=== PATIENT | female | born 1960 | race Caucasian/White ===

== ENCOUNTER 2016-12-22 09:36 | Outpatient (CLI) | payer MEDICARE ==
[~2016-12-22] VITALS: Ht 162.6 cm; Wt 107.5 kg
[2016-12-22] VITALS (15 sets, daily range): BP systolic 91–128; BP diastolic 55–73
[~2016-12-22 09:36] MED LIST: ALLO100T PO; DOLOPHINE PO; FLUO40CA9 PO; FURO20TA3 PO; HYDR-971 PO; LEVO50TA5 PO; METF500T4 PO; METH10OR PO; METH5SOL PO; METH5TAB PO; Methadone PO; NAPR500T8 PO; POTA10CA PO; SPIR25TA3 PO; TIOT18CA IH; VENTOLIN HFA18 GM INH
[2016-12-22 10:09] LABS: HEMATOCRIT 43.8 % (36.0-47.0); HEMOGLOBIN 14.3 g/dL (12.0-15.5); RED BLOOD COUNT 4.8 x10^6/uL (3.50-5.40); RED CELL DISTRIBUTION WIDTH 14.6 % (11.5-14.5); WHITE BLOOD COUNT 7.2 x10^3/uL (4.0-11.0)
[2016-12-22] MEDS ORDERED: CLON0.5T PO (10:18)
[2016-12-22] MEDS ORDERED: DICL100G7 TP (10:18)
[2016-12-22] MEDS ORDERED: COLC0.6T34 PO (10:18)
[2016-12-22] MEDS ORDERED: ONDA4TAB12 PO (10:18)
[2016-12-22] MEDS ORDERED: METH10TA2 PO (10:18)
[2016-12-22] MEDS ORDERED: POTA20TA4 PO (10:18)
[2016-12-22 10:19] LABS: INR 1.1 (0.8-1.1); PROTHROMBIN TIME PATIENT 13.3 SEC (11.7-14.0)
[2016-12-22 10:21] LABS: CALCIUM 8.4 mg/dL (8.5-10.1); CREATININE 0.9 mg/dL (0.6-1.0); GFR 64.8; POTASSIUM 4.1 mmol/L (3.5-5.1)
--- NOTE | 2016-12-22 11:34 | PDOC ---
MODERATE SEDATION ASSESSMENT RISKS/ALTERNATIVES Risks/Alternatives Risks and alternatives of this type of sedation and procedure discussed with: RISK/ALTERNATIVES: Patient H & P ON CHART H & P H & P on chart and reviewed for co-morbid conditions and appropriate labs. H&P ON CHART: Yes STATUS PREG STATUS ASSESSED: N/A MEDS/ALLERGIES REVIEWED Meds/Allergies Reviewed Medications and Allergies including time and route of recently administered narcotics and sedatives. MEDS/ALLERGIES REVIEWED: Yes ASA RATING ASA RATING: II AIRWAY ASSESSMENT Airway Assessment Airway patency, oral function limitations, presence of caps, crowns, dentures, partials, and ability to extend neck assessed. AIRWAY ASSESSMENT: Yes MALLAMPATI SCORE MALLAMPATI SCORE: II PRE-SEDATION ASSESSMENT PRE-SEDATION ASSESSMENT: Yes ELIZABETH WILLS MD Dec 22, 2016 11:34
[2016-12-22] MEDS ORDERED: LIDOCAINE 2% 20 ML VIAL. ONE (11:38)
[2016-12-22] MEDS ORDERED: IOHEXOL 300 MG/ML 100ML VIAL. ONE (11:38)
[2016-12-22] MEDS ORDERED: HEPARIN for IV BOLUS 10,000 UNIT/10 ML VIAL. ONE (11:53)
[2016-12-22] MEDS ORDERED: NITROGLYCERIN 200 MCG/2 ML SYRINGE FOR CATH/VASC LAB. ONE (11:53)
[2016-12-22] MEDS ORDERED: VERAPAMIL 5 MG/2 ML VIAL. ONE (11:53)
[2016-12-22] MEDS ORDERED: MIDAZOLAM HCL 2 MG/2 ML VIAL. ONE (11:53)
[2016-12-22] MEDS ORDERED: FENTANYL PF 100 MCG/2 ML VIAL. ONE (11:54)
[2016-12-22] MEDS ORDERED: IOHEXOL 300 MG/ML 100ML VIAL. IART ONE (12:15)
[2016-12-22] MEDS ORDERED: FENTANYL PF 100 MCG/2 ML VIAL. IV ONE (12:15)
[2016-12-22] MEDS ORDERED: NITROGLYCERIN 200 MCG/2 ML SYRINGE FOR CATH/VASC LAB. IART ONE (12:15)
[2016-12-22] MEDS ORDERED: HEPARIN for IV BOLUS 10,000 UNIT/10 ML VIAL. IART ONE (12:15)
[2016-12-22] MEDS ORDERED: MIDAZOLAM HCL 2 MG/2 ML VIAL. IV ONE (12:15)
[2016-12-22] MEDS ORDERED: VERAPAMIL 5 MG/2 ML VIAL. IART ONE (12:15)
[2016-12-22] MEDS ORDERED: LIDOCAINE 2% 20 ML VIAL. IJ ONE (12:15)
--- NOTE | 2016-12-22 15:14 | CARD ---
APPROVED REPORT Procedure(s) performed: Left heart catheterization, selective coronary angiography and left ventricul ography via the right transradial approach INDICATION The indication(s) include : Dyspnea on exertion and positive stress test. PROCEDURE NARRATIVE After explaining the risks, benefits and alternative options, informed consent was obtained from antonio ent. Patient was brought to the cardiac Germination Worker and right wrist was prepped and draped in the usual fashion after confirming a positive modified Silvio's test. Arterial access was obtained in the [facility] t radial artery and a 6 Cambodian sheath was inserted. 6 Cambodian Robles catheter was used to perform quentin ective angiography of the left and right coronary arteries. 6 Cambodian pigtail catheter was used to pe rform left ventriculography. Patient tolerated the procedure well. Hemostasis was achieved using TR band. There were no immediate complications. The following findings were noted. FINDINGS 1. Hemodynamics: Left ventricular end-diastolic pressure of 18 mmHg. No pullback gradient across th e aortic valve. 2. Left ventriculography: Normal left ventricle systolic function with ejection fraction estimated at 60%. No significant mitral regurgitation seen. 3. Coronary angiography: a. The left main coronary artery arose from the left sinus of Valsalva, gave rise to the left anteri or descending and left circumflex arteries and did not show any significant stenosis. b. The left anterior descending artery did not show any significant stenosis. c. The left circumflex artery did not show any significant stenosis. d. The right coronary artery was a large and dominant vessel arising from the right sinus of Valsalv a that did not show any significant stenosis. Conclusion 1. No significant coronary artery disease 2. Normal left ventricle systolic function with ejection fraction estimated at 60% Recommendations Cardiac Risk Reduction Program
== END 2016-12-22 15:05 | disposition home or self-care (01) ==
LOC: CCL 09:36
PROVIDERS: ATTEND Internal Medicine Cardiovascular Disease
DX: R94.39 Abnormal result of other cardiovascular function study (principal); J44.9 Chronic obstructive pulmonary disease, unspecified; E11.9 Type 2 diabetes mellitus without complications; E03.9 Hypothyroidism, unspecified; F41.9 Anxiety disorder, unspecified; Z90.49 Acquired absence of other specified parts of digestive tract; Z87.39 Personal history of other diseases of the musculoskeletal system and connective tissue; Z79.01 Long term (current) use of anticoagulants
CPT/HCPCS: 36415; 80048; 85027; 85610; 93458; C1769; C1892; J3490; Q9967

== ENCOUNTER 2017-03-27 15:57 | Inpatient (IN) | payer MEDICARE, MEDICAID ==
[~2017-03-27] VITALS: Ht 165.1 cm; Wt 106.2 kg
[~2017-03-27 15:57] MED LIST changes: +CLON0.5T PO; +COLC0.6T34 PO; +DICL100G18 TP; +METH10TA2 PO; +ONDA4TAB12 PO; -POTA10CA PO; +POTA20TA4 PO; +POTASSIUM CHLO10 MEQ PO
--- NOTE | 2017-03-27 16:23 | EKG ---
[facility] [address] [place] [address] Test Date: 2017-03-27 Test Time: 16:10:56 Pat Name: JULIA MCBRIDE Department: Room: Gender: F Can Washer: : 1960 Requested By: BERTRAND AARON Order Number: [id number] Reading MD: Karen Jones Measurements Intervals [employer] Rate: 82 P: 27 SC: 182 QRS: 53 QRSD: 88 T: 36 QT: 450 QTc: 529 Interpretive Statements SINUS RHYTHM LEFT ATRIAL ABNORMALITY QRS(T) CONTOUR ABNORMALITY CONSISTENT WITH ANTEROSEPTAL INFARCT AGE UNDETERMINED ABNORMAL ECG Electronically Signed On 03-28-2017 14:29:00 CDT by Karen Jones
--- NOTE | 2017-03-27 16:53 | RAD ---
Indication: Shortness of air and bilateral lower extremity swelling. Time of exam 1646 hours. Correlation is made with prior study from 10/29/2016. The heart size is stable. There may be minimal infiltrate or atelectasis in the right base. Otherwise the lungs are clear. No effusion is seen. There is no pneumothorax. Impression: Minimal right basilar parenchymal density consistent with minimal infiltrate or atelectasis.
--- NOTE | 2017-03-27 16:57 | PHYS DOC ---
Past Medical History Past Medical History: CHF, COPD, Diabetes-Type II, Hypothyroid Additional Past Medical Histor: CHRONIC PAIN Past Surgical History: Cholecystectomy, Tonsillectomy Alcohol Use: None Drug Use: None Adult General Chief Complaint Chief Complaint: LOWER EXTREMITY SWELLING HPI HPI Patient is a 56 year old female who presents with complaint of worsening lower extremity edema and shortness of breath. Patient states that she has been having worsening edema for the past month and has been on oral frusemide for treatment. The patient was referred to the emergency department by her primary doctor, Dr. Ponce, he stated that the patient's edema has been steadily worsening over the past week. The patient also states that she has had increase her home oxygen due to worsening dyspnea on exertion. Patient has history of COPD. The patient does not think that she has history of CHF but does admit that she is currently on frusemide therapy and does follow with Dr. Gutiérrez of cardiology. Patient also notes that she has had redness present in her lower extremities over the past month with her worsening edema. Patient denies any chest pain, nausea, or vomiting currently. Patient denies fever or productive cough. Review of Systems Review of Systems Constitutional: Denies fever or chills [] Eyes: Denies change in visual acuity, redness, or eye pain [] HENT: Denies nasal congestion or sore throat [] Respiratory: Shortness of breath [] Cardiovascular: Lower extremity edema, dyspnea on exertion, denies chest pain [] GI: Denies abdominal pain, nausea, vomiting, bloody stools or diarrhea [] : Denies dysuria or hematuria [] Musculoskeletal: Denies back pain or joint pain [] Integument: Denies rash or skin lesions [] Neurologic: Denies headache, focal weakness or sensory changes [] Current Medications Current Medications Allergies Allergies Allergies Coded Allergies Type Severity Reaction Last Updated Verified No Known Drug Allergies 10/08/14 No Physical Exam Physical Exam Constitutional: Alert, afebrile, appears in mild distress. [] HENT: Normocephalic, atraumatic, bilateral external ears normal, oropharynx moist, no oral exudates, nose normal. [] Eyes: PERRLA, EOMI, conjunctiva normal, no discharge. [] Neck: Normal range of motion, no tenderness, supple, no stridor. [] Cardiovascular: Regular rate and rhythm, no murmurs, gallops, or rubs present [] Lungs & Thorax: Mildly restricted air movement bilaterally, no expiratory wheezes, mild rales bilaterally [] Abdomen: Bowel sounds normal, soft, no tenderness, no masses, no pulsatile masses. [] Skin: Warm, dry, no erythema, no rash. [] Back: No tenderness, no CVA tenderness. [] Extremities: Lower extremities are erythematous, no cyanosis, no clubbing, ROM intact, 3+ pitting edema in the bilateral lower extremities. [] Neurologic: Alert and oriented X 3, normal motor function, normal sensory function, no focal deficits noted. [] Current Patient Data Vital Signs Vital Signs Date Time Temp Pulse Resp B/P (MAP) Pulse Ox O2 Delivery O2 Flow Rate FiO2 03/27/17 17:38 76 15 118/61 (80) 95 Nasal Cannula 2.0 03/27/17 16:15 99.2 99.2 Lab Values Laboratory Tests Test 03/27/17 17:00 03/27/17 17:15 White Blood Count 7.3 x10^3/uL (4.0-11.0) Red Blood Count 4.95 x10^6/uL (3.50-5.40) Hemoglobin 14.9 g/dL (12.0-15.5) Hematocrit 44.8 % (36.0-47.0) Mean Corpuscular Volume 91 fL (79-100) Mean Corpuscular Hemoglobin 30 pg (25-35) Mean Corpuscular Hemoglobin Concent 33 g/dL (31-37) Red Cell Distribution Width 14.6 % (11.5-14.5) H Platelet Count 146 x10^3/uL (140-400) Neutrophils (%) (Auto) 70 % (31-73) Lymphocytes (%) (Auto) 20 % (24-48) L Monocytes (%) (Auto) 8 % (0-9) Eosinophils (%) (Auto) 1 % (0-3) Basophils (%) (Auto) 1 % (0-3) Neutrophils # (Auto) 5.1 x10^3uL (1.8-7.7) Lymphocytes # (Auto) 1.5 x10^3/uL (1.0-4.8) Monocytes # (Auto) 0.6 x10^3/uL (0.0-1.1) Eosinophils # (Auto) 0.1 x10^3/uL (0.0-0.7) Basophils # (Auto) 0.1 x10^3/uL (0.0-0.2) Sodium Level 135 mmol/L (136-145) L Potassium Level 2.7 mmol/L (3.5-5.1) *L Chloride Level 94 mmol/L (98-107) L Carbon Dioxide Level 43 mmol/L (21-32) H Anion Gap (6-14) Blood Urea Nitrogen 13 mg/dL (7-20) Creatinine 1.0 mg/dL (0.6-1.0) Estimated GFR (Cockcroft-Gault) 57.4 BUN/Creatinine Ratio 13 (6-20) Glucose Level 141 mg/dL (70-99) H Calcium Level 9.4 mg/dL (8.5-10.1) Total Bilirubin 0.6 mg/dL (0.2-1.0) Aspartate Amino Transferase (AST) 39 U/L (15-37) H Alanine Aminotransferase (ALT) 28 U/L (14-59) Alkaline Phosphatase 143 U/L (46-116) H Creatine Kinase 60 U/L (26-192) Creatine Kinase MB (Mass) 1.3 ng/mL (0.0-3.6) Creatine Kinase MB Relative Index % (0-4) Troponin I Quantitative < 0.017 ng/mL (0.000-0.055) MB-Sjl-L-Type Natriuretic Peptide 459 pg/mL (0-124) H Total Protein 7.4 g/dL (6.4-8.2) Albumin 3.0 g/dL (3.4-5.0) L Albumin/Globulin Ratio 0.7 (1.0-1.7) L Urine Collection Type Unknown Urine Color Yellow Urine Clarity Clear Urine pH 7.5 Urine Specific [place] 1.010 Urine Protein Negative mg/dL (NEG-TRACE) Urine Glucose (UA) Negative mg/dL (NEG) Urine Ketones (Stick) Negative mg/dL (NEG) Urine Blood Negative (NEG) Urine Nitrite Negative (NEG) Urine Bilirubin Negative (NEG) Urine Urobilinogen Dipstick 0.2 mg/dL (0.2 mg/dL) Urine Leukocyte Esterase Negative (NEG) Urine RBC Occ /HPF (0-2) Urine WBC 0 /HPF (0-4) Urine Squamous Epithelial Cells Few /LPF Urine Bacteria Few /HPF (0-FEW) Laboratory Tests 03/27/17 17:00 Laboratory Tests 03/27/17 17:00 EKG EKG Interpreted by me: Heart rate 82, sinus rhythm, normal intervals, normal axis, no acute ST/T-wave abnormalities present [] Radiology/Procedures Radiology/Procedures [facility] [address] [place] [address] IMAGING REPORT Signed PATIENT: JULIA MCBRIDE ACCOUNT: [id number] : 1960 LOCATION: ER AGE: 56 SEX: F EXAM STATUS: REG ER ORD. PHYSICIAN: BERTRAND AARON MD REASON: shortness of breath PROCEDURE: PORTABLE CHEST 1V Indication: Shortness of air and bilateral lower extremity swelling. Time of exam 1646 hours. Correlation is made with prior study from 10/29/2016. The heart size is stable. There may be minimal infiltrate or atelectasis in the right base. Otherwise the lungs are clear. No effusion is seen. There is no pneumothorax. Impression: Minimal right basilar parenchymal density consistent with minimal infiltrate or atelectasis. DICTATED and SIGNED BY: OUMOU RODRIGUEZ MD DATE: 03/27/17 1650 CC: BERTRAND AARON MD; TERESA PONCE MD ~ Course & Med Decision Making Course & Med Decision Making Pertinent Labs and Imaging studies reviewed. (See chart for details) Patient's lab work shows significant hypokalemia likely due to use of for of some mild. The patient was supplemented with oral potassium in the emergency department. The patient's clinical exam and x-ray shows signs of decompensated heart failure. The patient will be admitted for further treatment. I spoke with Dr. Schwartz who accepted care patient in hospital. I also spoke with Dr. Zaragoza who is on-call for Dr. Gutiérrez. He recommended that the patient be started on low-dose Lasix tonight due to her hypokalemia and he will reevaluate patient in the morning after morning labs and see if she can tolerate higher doses at that time. Spoke with patient regarding plan of care and she is in agreement at time of transfer to a second floor. Dragon Disclaimer Dragon Disclaimer This electronic medical record was generated, in whole or in part, using a voice recognition dictation system. Departure Departure Impression: Primary Impression: Acute on chronic congestive heart failure Additional Impressions: Hypokalemia COPD (chronic obstructive pulmonary disease) Moderate protein malnutrition Disposition: ADMITTED INPATIENT Admitting Physician: Doris Schwartz Condition: GUARDED Referrals: TERESA PONCE MD (PCP) Problem Qualifiers Primary Impression: Acute on chronic congestive heart failure Congestive heart failure type: unspecified congestive heart failure type Qualified Codes: I50.9 - Heart failure, unspecified Additional Impressions: COPD (chronic obstructive pulmonary disease) COPD type: unspecified COPD Qualified Codes: J44.9 - Chronic obstructive pulmonary disease, unspecified BERTRAND AARON MD Mar 27, 2017 16:57
[2017-03-27 17:12] LABS: BASO # 0.1 x10^3/uL (0.0-0.2); BASO % 1 % (0-3); EOS % 1 % (0-3); HEMATOCRIT 44.8 % (36.0-47.0); HEMOGLOBIN 14.9 g/dL (12.0-15.5); LYMPH # 1.5 x10^3/uL (1.0-4.8); LYMPH % 20 % (24-48); MEAN CORPUSCULAR HEMOGLOBIN 30 pg (25-35); MEAN CORPUSCULAR HGB CONC 33 g/dL (31-37); MEAN CORPUSCULAR VOLUME 91 fL (79-100); MONO % 8 % (0-9); NEUT % 70 % (31-73); PLATELET COUNT 146 x10^3/uL (140-400); RED BLOOD COUNT 4.95 x10^6/uL (3.50-5.40); RED CELL DISTRIBUTION WIDTH 14.6 % (11.5-14.5); WHITE BLOOD COUNT 7.3 x10^3/uL (4.0-11.0)
[2017-03-27 17:28] LABS: ALBUMIN/GLOBULIN RATIO 0.7 (1.0-1.7); ALK PHOS 143 U/L (46-116); ALT (SGPT) 28 U/L (14-59); AST (SGOT) 39 U/L (15-37); BLOOD UREA NITROGEN 13 mg/dL (7-20); BUN/CREATININE RATIO 13 (6-20); CALCIUM 9.4 mg/dL (8.5-10.1); CARBON DIOXIDE 43 mmol/L (21-32); CHLORIDE 94 mmol/L (98-107); GFR 57.4; GLUCOSE 141 mg/dL (70-99); SODIUM 135 mmol/L (136-145); TOTAL BILIRUBIN 0.6 mg/dL (0.2-1.0); TOTAL PROTEIN 7.4 g/dL (6.4-8.2)
[2017-03-27 17:31] LABS: BILIRUBIN,URINE NEGATIVE (NEG); GLUCOSE,URINE NEGATIVE (NEG); NITRITE,URINE NEGATIVE (NEG); PH,URINE 7.5; PROTEIN,URINE NEGATIVE (NEG-TRACE); UROBILINOGEN,URINE 0.2 mg/dL (0.2 mg/dL)
[2017-03-27 17:34] LABS: POTASSIUM 2.7 mmol/L (3.5-5.1)
[2017-03-27 17:37] LABS: CKMB MASS 1.3 ng/mL (0.0-3.6); CREATINE KINASE 60 U/L (26-192)
[2017-03-27 17:50] LABS: BACTERIA,URINE FEW /HPF (0-FEW); RBC,URINE OCC /HPF (0-2); SQUAMOUS EPITHELIAL CELL,UR FEW /LPF; WBC,URINE 0 /HPF (0-4)
--- NOTE | 2017-03-27 17:52 | ACF ---
Admission Forms Criteria HEART FAILURE: COMMON COMPLICATIONS Clinical Indications for Inpatient Care (Place 'X' for any and all applicable criteria): Ongoing inpatient care may be indicated for heart failure with 1 or more of the following (1)(2)(3)(4)(5)(6)(7)(8): [ ]I. New-onset heart failure [ ]II. Acute cardiac ischemia causing or associated with failure [ ]III. Ongoing need for care for primary condition requiring frequent therapy adjustments because of changes in cardiac function (eg, drug dosage changes for drugs that are renally metabolized) [X ]IV. Complications of heart failure, including 1 or more of the following: [ ]a) Hemodynamic instability [ ]b) Pericardial effusion [ ]c) Symptomatic pleural effusion [ ]d) Hypoxemia [ ]e) Tachypnea [X ]f) Dyspnea [ ]g) Syncope [ ]h) Altered mental status [ ]i) Acute renal insufficiency that is severe (reduction of more than 50% in estimated glomerular filtration rate from baseline) or progressive reduction of more than 25% in estimated glomerular filtration rate from baseline, with creatinine continuing to rise) [ ]j) Debilitating anasarca (eg tissue breakdown with infection, inability to void due to edema) (E) [ ]k) Clinically significant metabolic abnormalities due to heart failure (eg, new-onset metabolic acidosis) Extended stay may be needed until ALL of the following are present (1)(3)(18)(41 )(55) [ ]a) Hemodynamic stability [ ]b) Stable and effective diuretic regimen established (or patient on stable dialysis regimen if in chronic renal failure) [ ]c) Volume status acceptable on oral medication [ ]d) Breathing comfortably at rest [ ]e) Saturation of arterial oxygen greater than 90% or at acceptable baseline [ ]f) Pulmonary edema absent or improved [ ]g) Peripheral or sacral edema absent or improved [ ]h) Renal function stable and manageable at a lower level of care [ ]i) Complications (eg, pleural effusion) resolved or manageable at a lower level of care [ ]g) Patient or caregiver has received written discharge instructions or educational material addressing activity level, diet, discharge medications, follow-up appointment, weight monitoring, and what to do if symptoms worsen.(25)(26) The original [facility] [employer] content created by [facility] [employer] has been revised. The portions of the content which have been revised are identified through the use of italic text, and [facility] has neither reviewed nor approved the modified material.All other unmodified content is copyright [facility]. Please see references footnoted in the original [facility] edition 2015 Admission Criteria Met?: Yes TRACI HEALY Mar 27, 2017 17:52
[2017-03-27] MEDS ORDERED: POTASSIUM CHLORIDE 20 MEQ TABLET.ER. PO ONE ×2 (18:00→19:00)
[2017-03-27] MEDS ORDERED: ONDANSETRON PF 4 MG/2 ML VIAL. IV PRN ×2 (18:30→19:15)
[2017-03-27] MEDS ORDERED: ACETAMINOPHEN 325 MG TABLET. PO PRN ×2 (18:30→19:15)
[2017-03-27] MEDS ORDERED: fentaNYL PF VIAL 100 MCG/2 ML VIAL IV PRN (18:30)
[2017-03-27] MEDS ORDERED: ALBUTEROL SULFATE 2.5 MG/3 ML NEBU. NEB PRN (19:15)
[2017-03-27] MEDS ORDERED: traMADol 50 MG TABLET PO PRN (19:15)
[2017-03-27] MEDS ORDERED: MORPHINE SULFATE 2 MG/ML DISP.SYRIN. IV PRN (19:15)
[2017-03-27] MEDS ORDERED: hydrALAZINE 20 MG/ML VIAL. IVP PRN (19:15)
[2017-03-27] MEDS ORDERED: DOCUSATE SODIUM 100 MG CAPSULE. PO PRN (19:15)
[2017-03-27] MEDS ORDERED: clonazePAM 0.5 MG TABLET PO PRN (19:15)
--- NOTE | 2017-03-27 19:16 | PDOC1 ---
History and Physical Date of Admission Date of Admission 03/27/17 Identification/Chief Complaint Chief Complaint bl leg edema Problems: Source Source: Chart review, Patient History of Present Illness History of Present Illness HPI HPI Patient is a 56 year old female who presents with complaint of worsening lower extremity edema and shortness of breath. pt knows she has CHF, copd, on home o2 2/3 L, recently got Echo, no details known. Pt noticed bl leg swelling worsening for 1 month, and was taking both lasix another new diuretics with dr. Gutiérrez but without improvement. She also has chronic orthopnea, exertional sob which is getting worse recently, not require higher o2 tho. + cough with mucus. still smoking, 1ppd. Patient denies any chest pain, nausea, or vomiting currently, no fever, chills , diarrhea. Past Medical History Cardiovascular: No pertinent hx Pulmonary: COPD CENTRAL NERVOUS SYSTEM: Other GI: No pertinent hx Heme/Onc: No pertinent hx Hepatobiliary: No pertinent hx Psych: Addictions, Depression Rheumatologic: Gout Renal/: No pertinent hx Endocrine: Diabetes, Hypothyroidism Past Surgical History Past Surgical History: Appendectomy, Cholecystectomy, Tonsillectomy Family History Family History: Diabetes, Hypertension Social History Smoke: 1 pack per day ALCOHOL: none Drugs: None Current Problem List Problem List Problems Medical Problems: (1) Acute on chronic congestive heart failure Status: Acute Current Medications Current Medications Current Medications Medications (Trade) Dose Ordered Sig/Pietro Start Time Stop Time Status Last Admin Dose Admin Acetaminophen (Tylenol) 650 mg PRN Q4HRS PRN 03/27/17 18:30 03/28/17 18:29 Albuterol/ Ipratropium (Duoneb) 3 ml RTQID 03/27/17 20:00 03/28/17 19:59 Fentanyl Citrate (Fentanyl 2ml Vial) 50 mcg PRN Q2HR PRN 03/27/17 18:30 03/28/17 18:29 Furosemide (Lasix) 20 mg 1X ONCE 03/27/17 19:00 03/27/17 19:01 UNV Nicotine (Nicoderm Cq 21mg) 1 patch PRN DAILY PRN 03/27/17 18:30 Ondansetron HCl (Zofran) 4 mg PRN Q8HRS PRN 03/27/17 18:30 03/28/17 18:29 Potassium Chloride (Klor-Con) 40 meq 1X ONCE 03/27/17 19:00 03/27/17 19:01 DC 03/27/17 18:51 40 MEQ Allergies Allergies Allergies Coded Allergies Type Severity Reaction Last Updated Verified No Known Drug Allergies 10/08/14 No ROS Review of System CONSTITUTIONAL: No fever or chills EYES: No recent changes SKIN: No rash or itching CARDIOVASCULAR: No chest pain, syncope, palpitations, or edema RESPIRATORY: No SOB or cough GASTROINTESTINAL: No nausea, vomiting or abdominal pain NEUROLOGICAL: No headaches or weakness ENDOCRINE: No cold or heat intolerance GENITOURINARY: No urgency or frequency of urination MUSCULOSKELETAL: No back pain or joint pain LYMPHATICS: No enlarged lymph nodes PSYCHIATRIC: No anxiety or depression Physical Exam Physical Exam GEN.: No apparent distress. Alert and oriented. HEENT: Head is normocephalic, atraumatic NECK: Supple. LUNGS: bl decreased bs HEART: RRR, S1, S2 present. Peripheral pulses intact ABDOMEN: Soft, nontender. Positive bowel sounds. EXTREMITIES: Without any cyanosis. bl leg 2-3+ edema, warm, mild erythematous ,mild tenderness NEUROLOGIC: Normal speech, normal tone PSYCHIATRIC: Normal affect, normal mood. SKIN: No ulcerations Vitals Vitals Vital Signs Date Time Temp Pulse Resp B/P (MAP) Pulse Ox O2 Delivery O2 Flow Rate FiO2 03/27/17 18:38 74 22 108/64 (79) 91 Nasal Cannula 2.0 03/27/17 16:15 99.2 99.2 Labs Labs Laboratory Tests Test 03/27/17 17:00 03/27/17 17:15 White Blood Count 7.3 x10^3/uL (4.0-11.0) Red Blood Count 4.95 x10^6/uL (3.50-5.40) Hemoglobin 14.9 g/dL (12.0-15.5) Hematocrit 44.8 % (36.0-47.0) Mean Corpuscular Volume 91 fL (79-100) Mean Corpuscular Hemoglobin 30 pg (25-35) Mean Corpuscular Hemoglobin Concent 33 g/dL (31-37) Red Cell Distribution Width 14.6 % (11.5-14.5) Platelet Count 146 x10^3/uL (140-400) Neutrophils (%) (Auto) 70 % (31-73) Lymphocytes (%) (Auto) 20 % (24-48) Monocytes (%) (Auto) 8 % (0-9) Eosinophils (%) (Auto) 1 % (0-3) Basophils (%) (Auto) 1 % (0-3) Neutrophils # (Auto) 5.1 x10^3uL (1.8-7.7) Lymphocytes # (Auto) 1.5 x10^3/uL (1.0-4.8) Monocytes # (Auto) 0.6 x10^3/uL (0.0-1.1) Eosinophils # (Auto) 0.1 x10^3/uL (0.0-0.7) Basophils # (Auto) 0.1 x10^3/uL (0.0-0.2) Sodium Level 135 mmol/L (136-145) Potassium Level 2.7 mmol/L (3.5-5.1) Chloride Level 94 mmol/L (98-107) Carbon Dioxide Level 43 mmol/L (21-32) Anion Gap (6-14) Blood Urea Nitrogen 13 mg/dL (7-20) Creatinine 1.0 mg/dL (0.6-1.0) Estimated GFR (Cockcroft-Gault) 57.4 BUN/Creatinine Ratio 13 (6-20) Glucose Level 141 mg/dL (70-99) Calcium Level 9.4 mg/dL (8.5-10.1) Total Bilirubin 0.6 mg/dL (0.2-1.0) Aspartate Amino Transf (AST/SGOT) 39 U/L (15-37) Alanine Aminotransferase (ALT/SGPT) 28 U/L (14-59) Alkaline Phosphatase 143 U/L (46-116) Creatine Kinase 60 U/L (26-192) Creatine Kinase MB (Mass) 1.3 ng/mL (0.0-3.6) Creatine Kinase MB Relative Index % (0-4) Troponin I Quantitative < 0.017 ng/mL (0.000-0.055) YH-Uch-J-Type Natriuretic Peptide 459 pg/mL (0-124) Total Protein 7.4 g/dL (6.4-8.2) Albumin 3.0 g/dL (3.4-5.0) Albumin/Globulin Ratio 0.7 (1.0-1.7) Urine Collection Type Unknown Urine Color Yellow Urine Clarity Clear Urine pH 7.5 Urine Specific [place] 1.010 Urine Protein Negative mg/dL (NEG-TRACE) Urine Glucose (UA) Negative mg/dL (NEG) Urine Ketones (Stick) Negative mg/dL (NEG) Urine Blood Negative (NEG) Urine Nitrite Negative (NEG) Urine Bilirubin Negative (NEG) Urine Urobilinogen Dipstick 0.2 mg/dL (0.2 mg/dL) Urine Leukocyte Esterase Negative (NEG) Urine RBC Occ /HPF (0-2) Urine WBC 0 /HPF (0-4) Urine Squamous Epithelial Cells Few /LPF Urine Bacteria Few /HPF (0-FEW) Laboratory Tests Test 03/27/17 17:00 03/27/17 17:15 White Blood Count 7.3 x10^3/uL (4.0-11.0) Red Blood Count 4.95 x10^6/uL (3.50-5.40) Hemoglobin 14.9 g/dL (12.0-15.5) Hematocrit 44.8 % (36.0-47.0) Mean Corpuscular Volume 91 fL (79-100) Mean Corpuscular Hemoglobin 30 pg (25-35) Mean Corpuscular Hemoglobin Concent 33 g/dL (31-37) Red Cell Distribution Width 14.6 % (11.5-14.5) Platelet Count 146 x10^3/uL (140-400) Neutrophils (%) (Auto) 70 % (31-73) Lymphocytes (%) (Auto) 20 % (24-48) Monocytes (%) (Auto) 8 % (0-9) Eosinophils (%) (Auto) 1 % (0-3) Basophils (%) (Auto) 1 % (0-3) Neutrophils # (Auto) 5.1 x10^3uL (1.8-7.7) Lymphocytes # (Auto) 1.5 x10^3/uL (1.0-4.8) Monocytes # (Auto) 0.6 x10^3/uL (0.0-1.1) Eosinophils # (Auto) 0.1 x10^3/uL (0.0-0.7) Basophils # (Auto) 0.1 x10^3/uL (0.0-0.2) Sodium Level 135 mmol/L (136-145) Potassium Level 2.7 mmol/L (3.5-5.1) Chloride Level 94 mmol/L (98-107) Carbon Dioxide Level 43 mmol/L (21-32) Anion Gap (6-14) Blood Urea Nitrogen 13 mg/dL (7-20) Creatinine 1.0 mg/dL (0.6-1.0) Estimated GFR (Cockcroft-Gault) 57.4 BUN/Creatinine Ratio 13 (6-20) Glucose Level 141 mg/dL (70-99) Calcium Level 9.4 mg/dL (8.5-10.1) Total Bilirubin 0.6 mg/dL (0.2-1.0) Aspartate Amino Transf (AST/SGOT) 39 U/L (15-37) Alanine Aminotransferase (ALT/SGPT) 28 U/L (14-59) Alkaline Phosphatase 143 U/L (46-116) Creatine Kinase 60 U/L (26-192) Creatine Kinase MB (Mass) 1.3 ng/mL (0.0-3.6) Creatine Kinase MB Relative Index % (0-4) Troponin I Quantitative < 0.017 ng/mL (0.000-0.055) BT-Ewe-Y-Type Natriuretic Peptide 459 pg/mL (0-124) Total Protein 7.4 g/dL (6.4-8.2) Albumin 3.0 g/dL (3.4-5.0) Albumin/Globulin Ratio 0.7 (1.0-1.7) Urine Collection Type Unknown Urine Color Yellow Urine Clarity Clear Urine pH 7.5 Urine Specific [place] 1.010 Urine Protein Negative mg/dL (NEG-TRACE) Urine Glucose (UA) Negative mg/dL (NEG) Urine Ketones (Stick) Negative mg/dL (NEG) Urine Blood Negative (NEG) Urine Nitrite Negative (NEG) Urine Bilirubin Negative (NEG) Urine Urobilinogen Dipstick 0.2 mg/dL (0.2 mg/dL) Urine Leukocyte Esterase Negative (NEG) Urine RBC Occ /HPF (0-2) Urine WBC 0 /HPF (0-4) Urine Squamous Epithelial Cells Few /LPF Urine Bacteria Few /HPF (0-FEW) VTE Prophylaxis Ordered VTE Prophylaxis Devices: No VTE Pharmacological Prophylaxi: Yes Assessment/Plan Assessment/Plan 1. bl leg edema 2/2 acute CHF exacerbation 2. h/o CHF, no details known, diastolic likely 3. dm2 4. copd 5. tobaccoism 6. hypothyroidism 7. hyponatremia 8. mild malnutrition 9. chronic lymphedema 10. chronic methadone user 11. chronic hypoxic resp failure plan: card consult cont home meds another lasix 20mg ivx1 duoneb labs tmr lymphedema treatment dvt ppx JAMILA MARK MD Mar 27, 2017 19:16
[2017-03-27] MEDS ORDERED: FUROSEMIDE 20 MG/2 ML VIAL. IVP ONE (19:30)
[2017-03-27] MEDS ORDERED: NON FORMULARY ITEM (Albuterol Sulfate (Ventolin Hfa Inhaler) 2 PUFF) INH SCH (20:00)
[2017-03-27] MEDS ORDERED: IPRATRPIUM/ALBUTEROL 0.5/2.5MG 3 ML NEBU. NEB SCH (20:00)
[2017-03-27 20:10] VITALS: BP 130/72
[2017-03-27] MEDS: ENOXAPARIN 40 MG/0.4 ML SYRINGE. SQ SCH (20:47)
[2017-03-27] MEDS: IPRATRPIUM/ALBUTEROL 0.5/2.5MG 3 ML NEBU. NEB SCH (20:50)
[2017-03-27] MEDS ORDERED: METHADONE 10 MG TABLET. PO SCH (21:00)
[2017-03-27] MEDS: NICOTINE 21MG PATCH. TD PRN (21:10)
[2017-03-27 22:49] VITALS: BP 113/57
[2017-03-28 02:35] VITALS: BP 100/59
[2017-03-28 04:42] LABS: BASO % 0 % (0-3); EOS % 1 % (0-3); HEMATOCRIT 42.5 % (36.0-47.0); HEMOGLOBIN 14.4 g/dL (12.0-15.5); LYMPH # 2.2 x10^3/uL (1.0-4.8); LYMPH % 29 % (24-48); MEAN CORPUSCULAR HEMOGLOBIN 30 pg (25-35); MEAN CORPUSCULAR HGB CONC 34 g/dL (31-37); MEAN CORPUSCULAR VOLUME 90 fL (79-100); MONO % 10 % (0-9); NEUT % 60 % (31-73); PLATELET COUNT 147 x10^3/uL (140-400); RED BLOOD COUNT 4.74 x10^6/uL (3.50-5.40); RED CELL DISTRIBUTION WIDTH 14.3 % (11.5-14.5); WHITE BLOOD COUNT 7.8 x10^3/uL (4.0-11.0)
[2017-03-28 04:59] LABS: CALCIUM 8.8 mg/dL (8.5-10.1); CREATININE 0.8 mg/dL (0.6-1.0); GFR 74.2
[2017-03-28 05:10] LABS: POTASSIUM 2.8 mmol/L (3.5-5.1)
[2017-03-28] MEDS: LEVOTHYROXINE 125 MCG TABLET PO SCH (06:13)
[2017-03-28] MEDS: FUROSEMIDE 40 MG TABLET. PO SCH ×3 (06:13→17:29)
[2017-03-28] MEDS: POTASSIUM CHLORIDE 20 MEQ/15 ML ORAL LIQUID. PEG SCH ×2 (06:14→08:46)
[2017-03-28 07:39] VITALS: BP 100/49
[2017-03-28] MEDS: IPRATRPIUM/ALBUTEROL 0.5/2.5MG 3 ML NEBU. NEB SCH ×4 (08:26→19:56)
[2017-03-28] MEDS: METHADONE 10 MG/1 ML PO SCH (08:45)
[2017-03-28] MEDS: FLUoxetine HCL 20 MG CAPSULE PO SCH (08:46)
[2017-03-28] MEDS: ALLOPURINOL 100 MG TABLET. PO SCH (08:46)
[2017-03-28] MEDS: ENOXAPARIN 40 MG/0.4 ML SYRINGE. SQ SCH ×2 (08:47→21:03)
[2017-03-28] MEDS ORDERED: NON FORMULARY ITEM (Tiotropium Bromide (Spiriva) 1 CAP) IH SCH (09:00)
--- NOTE | 2017-03-28 09:05 | PDOC2 ---
CARDIAC CONSULT DATE OF CONSULT Date of Consult DATE: 03/28/17 TIME: 08:55 REASON FOR CONSULT Reason for Consult: CHF HISTORY OF PRESENT ILLNESS HISTORY OF PRESENT ILLNESS Patient is a 56 year old female who presented with complaint of worsening lower extremity edema and shortness of breath. She states that she has been having increasing edema for the past month and has been on oral 120mg per day lasix for treatment. She also reports an additional diuretic but is not sure of the name. She does acknowledge increased use of salt in her diet. She also report increased need for her home oxygen due to worsening dyspnea on exertion. She says she is unable to go outside in the heat due to increased dyspnea and that inhalers do help temporarily. Patient also notes that she has had redness present in her lower extremities over the past month with her worsening edema. Patient denies any chest pain, nausea, or vomiting currently. Patient denies fever or productive cough. She denies palpitations or lightheadedness. She reports that she had not been taking her potassium supplement as ordered. PAST MEDICAL HISTORY Past Medical History Cardiovascular: No pertinent hx Pulmonary: COPD CENTRAL NERVOUS SYSTEM: Other (no pertinent hx) GI: No pertinent hx Heme/Onc: No pertinent hx Hepatobiliary: No pertinent hx Musculoskeletal: low back pain (on methadone), Osteoarthritis Rheumatologic: Gout ENT: No pertinent hx Renal/: No pertinent hx Endocrine: Diabetes, Hypothyroidism PAST SURGICAL HISTORY Past Surgical History Past Surgical History: Appendectomy, Cholecystectomy, Tonsillectomy FAMILY HISTORY Family History Family History: Diabetes, Hypertension SOCIAL HISTORY Social History Smoke: 1 pack per day ALCOHOL: none Drugs: None Lives: with Family CURRENT MEDICATIONS CURRENT MEDICATIONS Current Medications Medications (Trade) Dose Ordered Sig/Pietro Route PRN Reason Start Time Stop Time Status Last Admin Dose Admin Potassium Chloride (Klor-Con) 40 meq 1X ONCE PO 03/27/17 18:00 03/27/17 18:01 DC 03/27/17 17:49 Nicotine (Nicoderm Cq 21mg) 1 patch PRN DAILY PRN TD SMOKING CESSATION 03/27/17 18:30 03/27/17 21:10 Potassium Chloride (Klor-Con) 40 meq 1X ONCE PO 03/27/17 19:00 03/27/17 19:01 DC 03/27/17 18:51 Furosemide (Lasix) 20 mg 1X ONCE IVP 03/27/17 19:30 03/27/17 19:31 DC 03/27/17 19:37 Allopurinol (Zyloprim) 200 mg DAILY PO 03/28/17 09:00 03/28/17 08:46 Furosemide (Lasix) 40 mg [id number] PO 03/28/17 07:00 03/28/17 06:13 Levothyroxine Sodium (Synthroid) 125 mcg DAILY07 PO 03/28/17 07:00 03/28/17 06:13 Fluoxetine HCl (PROzac) 40 mg DAILY PO 03/28/17 09:00 03/28/17 08:46 Enoxaparin Sodium (Lovenox 40mg Syringe) 40 mg Q12H SQ 03/27/17 21:00 03/28/17 08:47 Albuterol/ Ipratropium (Duoneb) 3 ml RTQID NEB 03/27/17 20:00 03/28/17 08:26 Guaifenesin (Mucinex) 600 mg BID PO 03/27/17 21:00 03/28/17 08:47 Potassium Chloride (KCl Oral Soln) 40 meq Q4H PEG 03/28/17 06:00 03/28/17 10:01 03/28/17 08:46 Non-Formulary Medication 1 ea DAILY PO 03/28/17 09:00 03/28/17 08:45 ALLERGIES ALLERGIES: Coded Allergies: No Known Drug Allergies (Unverified , 10/08/14) ROS Review of System as per HPI or negative PHYSICAL EXAM General: Alert, Oriented X3, Cooperative, No acute distress HEENT: Atraumatic, EOMI, Mucous membr. moist/pink Lungs: Other (right basilar crackles otherwise clear) Heart: Regular rate, Normal S1, Normal S2, Other (no significant murmurs, clicks or rubs) Abdomen: Normal bowel sounds, Soft, No tenderness Extremities: No cyanosis, Normal pulses, Other (+2 edema, bilateral lower extremities. ) Skin: Other (right lower extremity erythema) Neuro: Normal speech, Strength at 5/5 X4 ext Psych/Mental Status: Mental status NL, Mood NL VITALS VITALS Vital Signs Date Time Temp Pulse Resp B/P (MAP) Pulse Ox O2 Delivery O2 Flow Rate FiO2 03/28/17 08:27 97 Nasal Cannula 2.0 03/28/17 07:39 98.4 84 18 100/49 (66) 98.4 LABS Lab: Laboratory Tests Test 03/27/17 17:00 03/27/17 17:15 03/28/17 04:30 White Blood Count 7.3 x10^3/uL (4.0-11.0) 7.8 x10^3/uL (4.0-11.0) Red Blood Count 4.95 x10^6/uL (3.50-5.40) 4.74 x10^6/uL (3.50-5.40) Hemoglobin 14.9 g/dL (12.0-15.5) 14.4 g/dL (12.0-15.5) Hematocrit 44.8 % (36.0-47.0) 42.5 % (36.0-47.0) Mean Corpuscular Volume 91 fL (79-100) 90 fL (79-100) Mean Corpuscular Hemoglobin 30 pg (25-35) 30 pg (25-35) Mean Corpuscular Hemoglobin Concent 33 g/dL (31-37) 34 g/dL (31-37) Red Cell Distribution Width 14.6 % (11.5-14.5) 14.3 % (11.5-14.5) Platelet Count 146 x10^3/uL (140-400) 147 x10^3/uL (140-400) Neutrophils (%) (Auto) 70 % (31-73) 60 % (31-73) Lymphocytes (%) (Auto) 20 % (24-48) 29 % (24-48) Monocytes (%) (Auto) 8 % (0-9) 10 % (0-9) Eosinophils (%) (Auto) 1 % (0-3) 1 % (0-3) Basophils (%) (Auto) 1 % (0-3) 0 % (0-3) Neutrophils # (Auto) 5.1 x10^3uL (1.8-7.7) 4.7 x10^3uL (1.8-7.7) Lymphocytes # (Auto) 1.5 x10^3/uL (1.0-4.8) 2.2 x10^3/uL (1.0-4.8) Monocytes # (Auto) 0.6 x10^3/uL (0.0-1.1) 0.8 x10^3/uL (0.0-1.1) Eosinophils # (Auto) 0.1 x10^3/uL (0.0-0.7) 0.1 x10^3/uL (0.0-0.7) Basophils # (Auto) 0.1 x10^3/uL (0.0-0.2) 0.0 x10^3/uL (0.0-0.2) Sodium Level 135 mmol/L (136-145) 140 mmol/L (136-145) Potassium Level 2.7 mmol/L (3.5-5.1) 2.8 mmol/L (3.5-5.1) Chloride Level 94 mmol/L (98-107) 96 mmol/L (98-107) Carbon Dioxide Level 43 mmol/L (21-32) 42 mmol/L (21-32) Anion Gap (6-14) 2 (6-14) Blood Urea Nitrogen 13 mg/dL (7-20) 14 mg/dL (7-20) Creatinine 1.0 mg/dL (0.6-1.0) 0.8 mg/dL (0.6-1.0) Estimated GFR (Cockcroft-Gault) 57.4 74.2 BUN/Creatinine Ratio 13 (6-20) Glucose Level 141 mg/dL (70-99) 74 mg/dL (70-99) Calcium Level 9.4 mg/dL (8.5-10.1) 8.8 mg/dL (8.5-10.1) Magnesium Level 2.2 mg/dL (1.8-2.4) Total Bilirubin 0.6 mg/dL (0.2-1.0) Aspartate Amino Transf (AST/SGOT) 39 U/L (15-37) Alanine Aminotransferase (ALT/SGPT) 28 U/L (14-59) Alkaline Phosphatase 143 U/L (46-116) Creatine Kinase 60 U/L (26-192) Creatine Kinase MB (Mass) 1.3 ng/mL (0.0-3.6) Creatine Kinase MB Relative Index % (0-4) Troponin I Quantitative < 0.017 ng/mL (0.000-0.055) BD-Loi-M-Type Natriuretic Peptide 459 pg/mL (0-124) Total Protein 7.4 g/dL (6.4-8.2) Albumin 3.0 g/dL (3.4-5.0) Albumin/Globulin Ratio 0.7 (1.0-1.7) Urine Collection Type Unknown Urine Color Yellow Urine Clarity Clear Urine pH 7.5 Urine Specific [place] 1.010 Urine Protein Negative mg/dL (NEG-TRACE) Urine Glucose (UA) Negative mg/dL (NEG) Urine Ketones (Stick) Negative mg/dL (NEG) Urine Blood Negative (NEG) Urine Nitrite Negative (NEG) Urine Bilirubin Negative (NEG) Urine Urobilinogen Dipstick 0.2 mg/dL (0.2 mg/dL) Urine Leukocyte Esterase Negative (NEG) Urine RBC Occ /HPF (0-2) Urine WBC 0 /HPF (0-4) Urine Squamous Epithelial Cells Few /LPF Urine Bacteria Few /HPF (0-FEW) IMAGES IMAGES CXR - Impression: Minimal right basilar parenchymal density consistent with minimal infiltrate or atelectasis. EKG EKG sinus rhythm, ASMI age undetermined, no acute abn. ECHOCARDIOGRAM ECHOCARDIOGRAM 10/29/16 <Conclusion> Left ventricle systolic function is normal. The Ejection Fraction is 55-60%. There is normal LV segmental wall motion. Mild mitral regurgitation. Mild tricuspid regurgitation. The PA pressure was estimated at 35 mmHg. There is no evidence of significant pericardial effusion. STRESS TEST STRESS TEST 12/10/16 Conclusion 1. No evidence of stress induced EKG changes. 2. There is a mild severity, distal anterior and mid to distal néstor-septal perfusion defect suggestive of small prior infarct with minimal reversibility. 3. Normal EF at > 70% 4. Low to moderate risk study. HEART CATH HEART CATH 12/22/16 FINDINGS 1. Hemodynamics: Left ventricular end-diastolic pressure of 18 mmHg. No pullback gradient across the aortic valve. 2. Left ventriculography: Normal left ventricle systolic function with ejection fraction estimated at 60%. No significant mitral regurgitation seen. 3. Coronary angiography: a. The left main coronary artery arose from the left sinus of Valsalva, gave rise to the left anterior descending and left circumflex arteries and did not show any significant stenosis. b. The left anterior descending artery did not show any significant stenosis. c. The left circumflex artery did not show any significant stenosis. d. The right coronary artery was a large and dominant vessel arising from the right sinus of Valsalva that did not show any significant stenosis. Conclusion 1. No significant coronary artery disease 2. Normal left ventricle systolic function with ejection fraction estimated at 60% ASSESSMENT/PLAN ASSESSMENT/PLAN 1. Mild BNP elevation - She does not appear to be in any overt heart failure. Normal LV function and Coronaries. CXR without vascular congestion 2. COPD with chronic hypoxic respiratory insufficiency, oxygen dependant - mgmt per PCP, encourage smoking cessation 3. Chronic lower extremity edema/lymphedema - per PCP. Venous reflux study negative. 4. hypokalemia - replace. Request medication list from pharmacy. Second diuretic likely metalazone. Verify and consider change to aldactone. Problems: GUILLAUME CUNNINGHAM [employer]IEF [employer] OPERATOR Mar 28, 2017 09:05
[2017-03-28] MEDS ORDERED: POTASSIUM CHLORIDE 20MEQ 50 ML IV SCH (09:15)
[2017-03-28] MEDS: POTASSIUM CHLORIDE 10MEQ 100 ML IV SCH ×4 (09:41→13:09)
[2017-03-28 11:07] VITALS: BP 82/46
[2017-03-28] MEDS ORDERED: TIOT4MIS3 (12:53)
--- NOTE | 2017-03-28 13:25 | PDOC ---
PROGRESS NOTES Chief Complaint Chief Complaint Acute hypoxic resipr failure ASSESSMENT AND PLAN: 1. COPD exacerbation: nebs, suppl O2 2. CHF: mild diastolic with pA pressure 35mm at echo in Oct 2016. appreciate cardiology input. 3. Lymphedema: chronic, worsened recently. Venous reflux studies negative. Intact LV systolic function. had been historically on lasix, but was d/c.ed when she developed MILAGRO in setting of severe diarrhea 4. Tobaccoism: advised to stop. nicotine patch 5. DM2: borderline with min elevated BG, but nornal HgbA1c in 11/14 (5.4). no need for monitoring 6. Hypothyroidism: mildly elevated TSH in Oct; on synthroid; rpt TSH 7. Hyponatremia: minimal. observe 8. Hypokalemia: severe at admit; improving. continue repletion 8. Mild protein malnutrition in face of morbid obesity: nutrition consult 9. Chronic methadone user with hx opioid abuse. set against weaning 10. Prophylaxis: lovenox History of Present Illness History of Present Illness much improved. no CP or cough Vitals Vitals Vital Signs Date Time Temp Pulse Resp B/P (MAP) Pulse Ox O2 Delivery O2 Flow Rate FiO2 03/28/17 12:09 97 Nasal Cannula 2.0 03/28/17 11:07 98.0 80 16 82/46 (58) 98.0 Physical Exam General: Alert, Oriented X3, Cooperative, No acute distress Heart: Regular rate, Normal S1, Normal S2, Other (no significant murmurs, clicks or rubs) Abdomen: Normal bowel sounds, Soft, No tenderness Extremities: No cyanosis, Normal pulses, Other (+2 edema, bilateral lower extremities. ) Skin: Other (right lower extremity erythema) Labs LABS Laboratory Tests Test 03/27/17 17:00 03/27/17 17:15 03/28/17 04:30 White Blood Count 7.3 x10^3/uL (4.0-11.0) 7.8 x10^3/uL (4.0-11.0) Red Blood Count 4.95 x10^6/uL (3.50-5.40) 4.74 x10^6/uL (3.50-5.40) Hemoglobin 14.9 g/dL (12.0-15.5) 14.4 g/dL (12.0-15.5) Hematocrit 44.8 % (36.0-47.0) 42.5 % (36.0-47.0) Mean Corpuscular Volume 91 fL (79-100) 90 fL (79-100) Mean Corpuscular Hemoglobin 30 pg (25-35) 30 pg (25-35) Mean Corpuscular Hemoglobin Concent 33 g/dL (31-37) 34 g/dL (31-37) Red Cell Distribution Width 14.6 % (11.5-14.5) 14.3 % (11.5-14.5) Platelet Count 146 x10^3/uL (140-400) 147 x10^3/uL (140-400) Neutrophils (%) (Auto) 70 % (31-73) 60 % (31-73) Lymphocytes (%) (Auto) 20 % (24-48) 29 % (24-48) Monocytes (%) (Auto) 8 % (0-9) 10 % (0-9) Eosinophils (%) (Auto) 1 % (0-3) 1 % (0-3) Basophils (%) (Auto) 1 % (0-3) 0 % (0-3) Neutrophils # (Auto) 5.1 x10^3uL (1.8-7.7) 4.7 x10^3uL (1.8-7.7) Lymphocytes # (Auto) 1.5 x10^3/uL (1.0-4.8) 2.2 x10^3/uL (1.0-4.8) Monocytes # (Auto) 0.6 x10^3/uL (0.0-1.1) 0.8 x10^3/uL (0.0-1.1) Eosinophils # (Auto) 0.1 x10^3/uL (0.0-0.7) 0.1 x10^3/uL (0.0-0.7) Basophils # (Auto) 0.1 x10^3/uL (0.0-0.2) 0.0 x10^3/uL (0.0-0.2) Sodium Level 135 mmol/L (136-145) 140 mmol/L (136-145) Potassium Level 2.7 mmol/L (3.5-5.1) 2.8 mmol/L (3.5-5.1) Chloride Level 94 mmol/L (98-107) 96 mmol/L (98-107) Carbon Dioxide Level 43 mmol/L (21-32) 42 mmol/L (21-32) Anion Gap (6-14) 2 (6-14) Blood Urea Nitrogen 13 mg/dL (7-20) 14 mg/dL (7-20) Creatinine 1.0 mg/dL (0.6-1.0) 0.8 mg/dL (0.6-1.0) Estimated GFR (Cockcroft-Gault) 57.4 74.2 BUN/Creatinine Ratio 13 (6-20) Glucose Level 141 mg/dL (70-99) 74 mg/dL (70-99) Calcium Level 9.4 mg/dL (8.5-10.1) 8.8 mg/dL (8.5-10.1) Magnesium Level 2.2 mg/dL (1.8-2.4) Total Bilirubin 0.6 mg/dL (0.2-1.0) Aspartate Amino Transf (AST/SGOT) 39 U/L (15-37) Alanine Aminotransferase (ALT/SGPT) 28 U/L (14-59) Alkaline Phosphatase 143 U/L (46-116) Creatine Kinase 60 U/L (26-192) Creatine Kinase MB (Mass) 1.3 ng/mL (0.0-3.6) Creatine Kinase MB Relative Index % (0-4) Troponin I Quantitative < 0.017 ng/mL (0.000-0.055) BJ-Iix-F-Type Natriuretic Peptide 459 pg/mL (0-124) Total Protein 7.4 g/dL (6.4-8.2) Albumin 3.0 g/dL (3.4-5.0) Albumin/Globulin Ratio 0.7 (1.0-1.7) Urine Collection Type Unknown Urine Color Yellow Urine Clarity Clear Urine pH 7.5 Urine Specific [place] 1.010 Urine Protein Negative mg/dL (NEG-TRACE) Urine Glucose (UA) Negative mg/dL (NEG) Urine Ketones (Stick) Negative mg/dL (NEG) Urine Blood Negative (NEG) Urine Nitrite Negative (NEG) Urine Bilirubin Negative (NEG) Urine Urobilinogen Dipstick 0.2 mg/dL (0.2 mg/dL) Urine Leukocyte Esterase Negative (NEG) Urine RBC Occ /HPF (0-2) Urine WBC 0 /HPF (0-4) Urine Squamous Epithelial Cells Few /LPF Urine Bacteria Few /HPF (0-FEW) SVITLANA FLAHERTY MD Mar 28, 2017 13:25
[2017-03-28 15:02] VITALS: BP 86/48
[2017-03-28] MEDS: POTASSIUM CHLORIDE 20 MEQ TABLET.ER. PO SCH (17:29)
[2017-03-28 19:14] VITALS: BP 111/53
[2017-03-28 22:41] VITALS: BP 103/54
[2017-03-29 03:41] VITALS: BP 107/56
[2017-03-29] MEDS: FUROSEMIDE 40 MG TABLET. PO SCH ×3 (06:20→17:56)
[2017-03-29] MEDS: LEVOTHYROXINE 125 MCG TABLET PO SCH (06:20)
[2017-03-29] MEDS: NICOTINE 21MG PATCH. TD PRN (06:21)
[2017-03-29 07:00] VITALS: BP_SYST 106; BP_SYST 111; BP_DIAS 30; BP_DIAS 65
[2017-03-29] MEDS: IPRATRPIUM/ALBUTEROL 0.5/2.5MG 3 ML NEBU. NEB SCH ×4 (07:39→19:39)
[2017-03-29] MEDS: METHADONE 10 MG/1 ML PO SCH (09:00)
[2017-03-29] MEDS: POTASSIUM CHLORIDE 20 MEQ TABLET.ER. PO SCH ×2 (09:13→17:56)
[2017-03-29] MEDS: ENOXAPARIN 40 MG/0.4 ML SYRINGE. SQ SCH ×2 (09:14→21:09)
[2017-03-29] MEDS: ALLOPURINOL 100 MG TABLET. PO SCH (09:14)
[2017-03-29] MEDS: FLUoxetine HCL 20 MG CAPSULE PO SCH (09:14)
[2017-03-29 09:28] LABS: CALCIUM 8.3 mg/dL (8.5-10.1); GFR 57.4; POTASSIUM 3.2 mmol/L (3.5-5.1)
[2017-03-29 11:00] VITALS: BP 102/54
--- NOTE | 2017-03-29 13:21 | PDOC ---
PROGRESS NOTES Subjective Subjective The patient is feeling better today. Objective Objective Vital Signs Date Time Temp Pulse Resp B/P (MAP) Pulse Ox O2 Delivery O2 Flow Rate FiO2 03/29/17 11:42 Nasal Cannula 2.0 03/29/17 11:00 97.4 81 18 102/54 (70) 92 97.4 Intake and Output 03/29/17 07:00 Intake Total 1240 ml Output Total 700 ml Balance 540 ml Intake Oral 840 ml Other 400 ml Output Urine Total 700 ml # Voids 4 Physical Exam Abdomen: Normal bowel sounds Heart: Regular rate General: mild distress Lungs: Clear to auscultation Assessment Assessment Problems Medical Problems: (1) Acute on chronic congestive heart failure Status: Acute (2) COPD (chronic obstructive pulmonary disease) Status: Acute (3) Hypokalemia Status: Acute (4) Moderate protein malnutrition Status: Acute ASSESSMENT/PLAN 1. Mild BNP elevation the patient looks and feels better today. Normal LV function and coronaries as above. Continue present medical treatment. 2. COPD with chronic hypoxic respiratory insufficiency, oxygen dependant - mgmt per PCP, encourage smoking cessation 3. Chronic lower extremity edema/lymphedema - per PCP. Venous reflux study negative. 4. hypokalemia - Improved today at 3.2. Will continue replacement. Comment Review of Relevant I have reviewed the following items trever (where applicable) has been applied. Labs Laboratory Tests Test 03/27/17 17:00 03/27/17 17:15 03/28/17 04:30 03/29/17 08:58 White Blood Count 7.3 x10^3/uL (4.0-11.0) 7.8 x10^3/uL (4.0-11.0) Red Blood Count 4.95 x10^6/uL (3.50-5.40) 4.74 x10^6/uL (3.50-5.40) Hemoglobin 14.9 g/dL (12.0-15.5) 14.4 g/dL (12.0-15.5) Hematocrit 44.8 % (36.0-47.0) 42.5 % (36.0-47.0) Mean Corpuscular Volume 91 fL (79-100) 90 fL (79-100) Mean Corpuscular Hemoglobin 30 pg (25-35) 30 pg (25-35) Mean Corpuscular Hemoglobin Concent 33 g/dL (31-37) 34 g/dL (31-37) Red Cell Distribution Width 14.6 % (11.5-14.5) 14.3 % (11.5-14.5) Platelet Count 146 x10^3/uL (140-400) 147 x10^3/uL (140-400) Neutrophils (%) (Auto) 70 % (31-73) 60 % (31-73) Lymphocytes (%) (Auto) 20 % (24-48) 29 % (24-48) Monocytes (%) (Auto) 8 % (0-9) 10 % (0-9) Eosinophils (%) (Auto) 1 % (0-3) 1 % (0-3) Basophils (%) (Auto) 1 % (0-3) 0 % (0-3) Neutrophils # (Auto) 5.1 x10^3uL (1.8-7.7) 4.7 x10^3uL (1.8-7.7) Lymphocytes # (Auto) 1.5 x10^3/uL (1.0-4.8) 2.2 x10^3/uL (1.0-4.8) Monocytes # (Auto) 0.6 x10^3/uL (0.0-1.1) 0.8 x10^3/uL (0.0-1.1) Eosinophils # (Auto) 0.1 x10^3/uL (0.0-0.7) 0.1 x10^3/uL (0.0-0.7) Basophils # (Auto) 0.1 x10^3/uL (0.0-0.2) 0.0 x10^3/uL (0.0-0.2) Sodium Level 135 mmol/L (136-145) 140 mmol/L (136-145) 143 mmol/L (136-145) Potassium Level 2.7 mmol/L (3.5-5.1) 2.8 mmol/L (3.5-5.1) 3.2 mmol/L (3.5-5.1) Chloride Level 94 mmol/L (98-107) 96 mmol/L (98-107) 98 mmol/L (98-107) Carbon Dioxide Level 43 mmol/L (21-32) 42 mmol/L (21-32) 43 mmol/L (21-32) Anion Gap (6-14) 2 (6-14) 2 (6-14) Blood Urea Nitrogen 13 mg/dL (7-20) 14 mg/dL (7-20) 13 mg/dL (7-20) Creatinine 1.0 mg/dL (0.6-1.0) 0.8 mg/dL (0.6-1.0) 1.0 mg/dL (0.6-1.0) Estimated GFR (Cockcroft-Gault) 57.4 74.2 57.4 BUN/Creatinine Ratio 13 (6-20) Glucose Level 141 mg/dL (70-99) 74 mg/dL (70-99) 123 mg/dL (70-99) Calcium Level 9.4 mg/dL (8.5-10.1) 8.8 mg/dL (8.5-10.1) 8.3 mg/dL (8.5-10.1) Magnesium Level 2.2 mg/dL (1.8-2.4) Total Bilirubin 0.6 mg/dL (0.2-1.0) Aspartate Amino Transf (AST/SGOT) 39 U/L (15-37) Alanine Aminotransferase (ALT/SGPT) 28 U/L (14-59) Alkaline Phosphatase 143 U/L (46-116) Creatine Kinase 60 U/L (26-192) Creatine Kinase MB (Mass) 1.3 ng/mL (0.0-3.6) Creatine Kinase MB Relative Index % (0-4) Troponin I Quantitative < 0.017 ng/mL (0.000-0.055) CK-Uph-U-Type Natriuretic Peptide 459 pg/mL (0-124) Total Protein 7.4 g/dL (6.4-8.2) Albumin 3.0 g/dL (3.4-5.0) Albumin/Globulin Ratio 0.7 (1.0-1.7) Urine Collection Type Unknown Urine Color Yellow Urine Clarity Clear Urine pH 7.5 Urine Specific [place] 1.010 Urine Protein Negative mg/dL (NEG-TRACE) Urine Glucose (UA) Negative mg/dL (NEG) Urine Ketones (Stick) Negative mg/dL (NEG) Urine Blood Negative (NEG) Urine Nitrite Negative (NEG) Urine Bilirubin Negative (NEG) Urine Urobilinogen Dipstick 0.2 mg/dL (0.2 mg/dL) Urine Leukocyte Esterase Negative (NEG) Urine RBC Occ /HPF (0-2) Urine WBC 0 /HPF (0-4) Urine Squamous Epithelial Cells Few /LPF Urine Bacteria Few /HPF (0-FEW) Thyroid Stimulating Hormone (TSH) 3.232 uIU/mL (0.358-3.74) Laboratory Tests Test 03/29/17 08:58 Sodium Level 143 mmol/L (136-145) Potassium Level 3.2 mmol/L (3.5-5.1) Chloride Level 98 mmol/L (98-107) Carbon Dioxide Level 43 mmol/L (21-32) Anion Gap 2 (6-14) Blood Urea Nitrogen 13 mg/dL (7-20) Creatinine 1.0 mg/dL (0.6-1.0) Estimated GFR (Cockcroft-Gault) 57.4 Glucose Level 123 mg/dL (70-99) Calcium Level 8.3 mg/dL (8.5-10.1) Thyroid Stimulating Hormone (TSH) 3.232 uIU/mL (0.358-3.74) Medications Current Medications Potassium Chloride (Klor-Con) 40 meq 1X ONCE PO Last administered on 17:49; Start 03/27/17 at 18:00; Stop 03/27/17 at 18:01; Status DC Nicotine (Nicoderm Cq 21mg) 1 patch PRN DAILY PRN TD SMOKING CESSATION Last administered on 03/29/17 06:21; Start 03/27/17 at 18:30 Ondansetron HCl (Zofran) 4 mg PRN Q8HRS PRN IV NAUSEA/VOMITING; Start 03/27/17 at 18:30; Stop 03/27/17 at 19:12; Status DC Fentanyl Citrate (Fentanyl 2ml Vial) 50 mcg PRN Q2HR PRN IV PAIN; Start at 18:30; Stop 03/28/17 at 18:29; Status DC Acetaminophen (Tylenol) 650 mg PRN Q4HRS PRN PO FEVER; Start 03/27/17 at 18:30 ; Stop 03/27/17 at 19:12; Status DC Albuterol/ Ipratropium (Duoneb) 3 ml RTQID NEB ; Start 03/27/17 at 20:00; Stop 03/27/17 at 20:00; Status DC Potassium Chloride (Klor-Con) 40 meq 1X ONCE PO Last administered on 18:51; Start 03/27/17 at 19:00; Stop 03/27/17 at 19:01; Status DC Furosemide (Lasix) 20 mg 1X ONCE IVP Last administered on 03/27/17 19:37; Start 03/27/17 at 19:30; Stop 03/27/17 at 19:31; Status DC Acetaminophen (Tylenol) 650 mg PRN Q6HRS PRN PO FEVER; Start 03/27/17 at 19:15 Ondansetron HCl (Zofran) 4 mg PRN Q6HRS PRN IV NAUSEA/VOMITING; Start 03/27/17 at 19:15 Morphine Sulfate 2 mg PRN Q2HR PRN IV PAIN; Start 03/27/17 at 19:15 Tramadol HCl (Ultram) 50 mg PRN Q6HRS PRN PO PAIN; Start 03/27/17 at 19:15 Hydralazine HCl (Apresoline) 10 mg PRN Q4HRS PRN IVP ELEVATED BP, SEE COMMENTS ; Start 03/27/17 at 19:15 Docusate Sodium (Colace) 100 mg PRN DAILY PRN PO CONSTIPATION; Start 03/27/17 at 19:15 Allopurinol (Zyloprim) 200 mg DAILY PO Last administered on 03/29/17 09:14; Start 03/28/17 at 09:00 Clonazepam (KlonoPIN) 0.5 mg PRN QHS PRN PO INSOMNIA; Start 03/27/17 at 19:15 Furosemide (Lasix) 40 mg [id number] PO Last administered on 03/29/17 06:20; Start 03/28/17 at 07:00 Levothyroxine Sodium (Synthroid) 125 mcg DAILY07 PO Last administered on 06:20; Start 03/28/17 at 07:00 Methadone HCl (Dolophine) 10 mg BID PO ; Start 03/27/17 at 21:00; Stop 03/28/17 at 08:08; Status DC Potassium Chloride (Klor-Con) 40 meq BIDWMEALS PO Last administered on 09:13; Start 03/28/17 at 17:00 Non-Formulary Medication 2 puff Q4HRS INH ; Start 03/27/17 at 20:00; Status UNV Fluoxetine HCl (PROzac) 40 mg DAILY PO Last administered on 03/29/17 09:14; Start 03/28/17 at 09:00 Non-Formulary Medication 1 cap DAILY IH ; Start 03/28/17 at 09:00; Status UNV Enoxaparin Sodium (Lovenox 40mg Syringe) 40 mg Q12H SQ Last administered on 03/29 09:14; Start 03/27/17 at 21:00 Albuterol/ Ipratropium (Duoneb) 3 ml RTQID NEB Last administered on 03/29/17 11 :40; Start 03/27/17 at 20:00 Albuterol Sulfate (Ventolin Neb Soln) 2.5 mg PRN Q2HR PRN NEB SHORTNESS OF BREATH; Start 03/27/17 at 19:15 Guaifenesin (Mucinex) 600 mg BID PO Last administered on 03/29/17 09:14; Start 03/27/17 at 21:00 Potassium Chloride (KCl Oral Soln) 40 meq Q4H PEG Last administered on 08:46; Start 03/28/17 at 06:00; Stop 03/28/17 at 10:01; Status DC Non-Formulary Medication 1 ea DAILY PO Last administered on 03/29/17 09:00; Start 03/28/17 at 09:00 Potassium Chloride 50 ml @ 50 mls/hr Q1H IV ; Start 03/28/17 at 09:15; Stop at 11:14; Status UNV Potassium Chloride 100 ml @ 100 mls/hr Q1H IV Last administered on 03/28/17 13 :09; Start 03/28/17 at 09:30; Stop 03/28/17 at 13:29; Status DC Active Scripts Active Reported Stiolto Respimat Inhal [place] (Tiotropium Br/Olodaterol HCl) 4 Gm Mist.inhal Klor-Con M20 (Potassium Chloride) 20 Meq Tab.er.prt 80 Meq PO DAILY Methadone Hcl 10 Mg Tablet 140 Mg PO DAILY Klonopin (Clonazepam) 0.5 Mg Tablet 0.5 Mg PO DAILY PRN Allopurinol 100 Mg Tablet 2 Tab PO DAILY Prozac (Fluoxetine Hcl) 40 Mg Capsule 1 Cap PO DAILY Ventolin Hfa Inhaler (Albuterol Sulfate) 18 Gm Hfa.aer.ad 2 Puff INH Q4HRS Furosemide 20 Mg Tablet 2 Tab PO TID Levothyroxine Sodium 50 Mcg Tablet 2.5 Tab PO DAILY Spiriva (Tiotropium [place]) 18 Mcg Cap.w.dev 1 Cap IH DAILY Vitals/I & O Vital Sign - Last 24 Hours 03/28/17 03/28/17 03/28/17 03/28/17 15:02 15:38 19:14 19:45 Temp 98.5 98.3 98.5 98.3 Pulse 76 79 Resp 16 18 B/P (MAP) 86/48 (61) 111/53 (72) Pulse Ox 92 95 93 O2 Delivery Room Air Nasal Cannula Nasal Cannula Nasal Cannula O2 Flow Rate 2.0 2.0 2.0 03/28/17 03/28/17 03/29/17 03/29/17 19:57 22:41 03:41 07:00 Temp 98.4 97.2 98.6 98.4 97.2 98.6 Pulse 80 86 83 Resp 16 16 18 B/P (MAP) 103/54 (70) 107/56 (73) 106/65 (79) 111/30 (57) Pulse Ox 95 94 90 92 O2 Delivery Nasal Cannula Nasal Cannula Nasal Cannula Nasal Cannula O2 Flow Rate 2.0 2.0 2.0 2.0 03/29/17 03/29/17 03/29/17 03/29/17 07:42 07:51 11:00 11:42 Temp 97.4 97.4 Pulse 81 Resp 18 B/P (MAP) 102/54 (70) Pulse Ox 92 92 O2 Delivery Nasal Cannula Nasal Cannula Nasal Cannula Nasal Cannula O2 Flow Rate 2.0 2.0 2.0 2.0 Intake and Output 03/28/17 03/28/17 03/29/17 15:00 23:00 07:00 Intake Total 240 ml 400 ml 600 ml Output Total 200 ml 500 ml Balance 40 ml -100 ml 600 ml MAMADOU KYLE MD Mar 29, 2017 13:21
[2017-03-29 15:00] VITALS: BP 102/42
--- NOTE | 2017-03-29 15:41 | PDOC ---
PROGRESS NOTES Chief Complaint Chief Complaint Acute hypoxic resipr failure ASSESSMENT AND PLAN: 1. COPD exacerbation: nebs, suppl O2 2. CHF: mild diastolic with pA pressure 35mm at echo in Oct 2016. appreciate cardiology input. 3. Lymphedema: chronic, worsened recently. Venous reflux studies negative. Intact LV systolic function. had been historically on lasix, but was d/c.ed when she developed MILAGRO in setting of severe diarrhea 4. Tobaccoism: advised to stop. nicotine patch 5. DM2: borderline with min elevated BG, but [id number] in 11/14 (5.4). no need for monitoring 6. Hypothyroidism: mildly elevated TSH in Oct; on synthroid; rpt TSH 7. Hyponatremia: minimal. observe 8. Hypokalemia: severe at admit; improving. continue repletion 8. Mild protein malnutrition in face of morbid obesity: nutrition consult 9. Chronic methadone user with hx opioid abuse. set against weaning 10. Prophylaxis: lovenox History of Present Illness History of Present Illness much improved. no CP or cough Vitals Vitals Vital Signs Date Time Temp Pulse Resp B/P (MAP) Pulse Ox O2 Delivery O2 Flow Rate FiO2 03/29/17 11:42 Nasal Cannula 2.0 03/29/17 11:00 97.4 81 18 102/54 (70) 92 97.4 Physical Exam General: Alert, Oriented X3, Cooperative, No acute distress Heart: Regular rate Lungs: Clear, Other (poor air movement) Abdomen: Normal bowel sounds Extremities: No cyanosis, No edema, Other (+2 edema, bilateral lower extremities. ) Skin: Other (right lower extremity erythema) Labs LABS Laboratory Tests Test 03/29/17 08:58 Sodium Level 143 mmol/L (136-145) Potassium Level 3.2 mmol/L (3.5-5.1) Chloride Level 98 mmol/L (98-107) Carbon Dioxide Level 43 mmol/L (21-32) Anion Gap 2 (6-14) Blood Urea Nitrogen 13 mg/dL (7-20) Creatinine 1.0 mg/dL (0.6-1.0) Estimated GFR (Cockcroft-Gault) 57.4 Glucose Level 123 mg/dL (70-99) Calcium Level 8.3 mg/dL (8.5-10.1) Thyroid Stimulating Hormone (TSH) 3.232 uIU/mL (0.358-3.74) Comment Review of Relevant I have reviewed the following items trever (where applicable) has been applied. Labs Laboratory Tests Test 03/27/17 17:00 03/27/17 17:15 03/28/17 04:30 03/29/17 08:58 White Blood Count 7.3 x10^3/uL (4.0-11.0) 7.8 x10^3/uL (4.0-11.0) Red Blood Count 4.95 x10^6/uL (3.50-5.40) 4.74 x10^6/uL (3.50-5.40) Hemoglobin 14.9 g/dL (12.0-15.5) 14.4 g/dL (12.0-15.5) Hematocrit 44.8 % (36.0-47.0) 42.5 % (36.0-47.0) Mean Corpuscular Volume 91 fL (79-100) 90 fL (79-100) Mean Corpuscular Hemoglobin 30 pg (25-35) 30 pg (25-35) Mean Corpuscular Hemoglobin Concent 33 g/dL (31-37) 34 g/dL (31-37) Red Cell Distribution Width 14.6 % (11.5-14.5) 14.3 % (11.5-14.5) Platelet Count 146 x10^3/uL (140-400) 147 x10^3/uL (140-400) Neutrophils (%) (Auto) 70 % (31-73) 60 % (31-73) Lymphocytes (%) (Auto) 20 % (24-48) 29 % (24-48) Monocytes (%) (Auto) 8 % (0-9) 10 % (0-9) Eosinophils (%) (Auto) 1 % (0-3) 1 % (0-3) Basophils (%) (Auto) 1 % (0-3) 0 % (0-3) Neutrophils # (Auto) 5.1 x10^3uL (1.8-7.7) 4.7 x10^3uL (1.8-7.7) Lymphocytes # (Auto) 1.5 x10^3/uL (1.0-4.8) 2.2 x10^3/uL (1.0-4.8) Monocytes # (Auto) 0.6 x10^3/uL (0.0-1.1) 0.8 x10^3/uL (0.0-1.1) Eosinophils # (Auto) 0.1 x10^3/uL (0.0-0.7) 0.1 x10^3/uL (0.0-0.7) Basophils # (Auto) 0.1 x10^3/uL (0.0-0.2) 0.0 x10^3/uL (0.0-0.2) Sodium Level 135 mmol/L (136-145) 140 mmol/L (136-145) 143 mmol/L (136-145) Potassium Level 2.7 mmol/L (3.5-5.1) 2.8 mmol/L (3.5-5.1) 3.2 mmol/L (3.5-5.1) Chloride Level 94 mmol/L (98-107) 96 mmol/L (98-107) 98 mmol/L (98-107) Carbon Dioxide Level 43 mmol/L (21-32) 42 mmol/L (21-32) 43 mmol/L (21-32) Anion Gap (6-14) 2 (6-14) 2 (6-14) Blood Urea Nitrogen 13 mg/dL (7-20) 14 mg/dL (7-20) 13 mg/dL (7-20) Creatinine 1.0 mg/dL (0.6-1.0) 0.8 mg/dL (0.6-1.0) 1.0 mg/dL (0.6-1.0) Estimated GFR (Cockcroft-Gault) 57.4 74.2 57.4 BUN/Creatinine Ratio 13 (6-20) Glucose Level 141 mg/dL (70-99) 74 mg/dL (70-99) 123 mg/dL (70-99) Calcium Level 9.4 mg/dL (8.5-10.1) 8.8 mg/dL (8.5-10.1) 8.3 mg/dL (8.5-10.1) Magnesium Level 2.2 mg/dL (1.8-2.4) Total Bilirubin 0.6 mg/dL (0.2-1.0) Aspartate Amino Transf (AST/SGOT) 39 U/L (15-37) Alanine Aminotransferase (ALT/SGPT) 28 U/L (14-59) Alkaline Phosphatase 143 U/L (46-116) Creatine Kinase 60 U/L (26-192) Creatine Kinase MB (Mass) 1.3 ng/mL (0.0-3.6) Creatine Kinase MB Relative Index % (0-4) Troponin I Quantitative < 0.017 ng/mL (0.000-0.055) AI-Ojr-Q-Type Natriuretic Peptide 459 pg/mL (0-124) Total Protein 7.4 g/dL (6.4-8.2) Albumin 3.0 g/dL (3.4-5.0) Albumin/Globulin Ratio 0.7 (1.0-1.7) Urine Collection Type Unknown Urine Color Yellow Urine Clarity Clear Urine pH 7.5 Urine Specific [place] 1.010 Urine Protein Negative mg/dL (NEG-TRACE) Urine Glucose (UA) Negative mg/dL (NEG) Urine Ketones (Stick) Negative mg/dL (NEG) Urine Blood Negative (NEG) Urine Nitrite Negative (NEG) Urine Bilirubin Negative (NEG) Urine Urobilinogen Dipstick 0.2 mg/dL (0.2 mg/dL) Urine Leukocyte Esterase Negative (NEG) Urine RBC Occ /HPF (0-2) Urine WBC 0 /HPF (0-4) Urine Squamous Epithelial Cells Few /LPF Urine Bacteria Few /HPF (0-FEW) Thyroid Stimulating Hormone (TSH) 3.232 uIU/mL (0.358-3.74) Laboratory Tests Test 03/29/17 08:58 Sodium Level 143 mmol/L (136-145) Potassium Level 3.2 mmol/L (3.5-5.1) Chloride Level 98 mmol/L (98-107) Carbon Dioxide Level 43 mmol/L (21-32) Anion Gap 2 (6-14) Blood Urea Nitrogen 13 mg/dL (7-20) Creatinine 1.0 mg/dL (0.6-1.0) Estimated GFR (Cockcroft-Gault) 57.4 Glucose Level 123 mg/dL (70-99) Calcium Level 8.3 mg/dL (8.5-10.1) Thyroid Stimulating Hormone (TSH) 3.232 uIU/mL (0.358-3.74) Medications Current Medications Potassium Chloride (Klor-Con) 40 meq 1X ONCE PO Last administered on 17:49; Start 03/27/17 at 18:00; Stop 03/27/17 at 18:01; Status DC Nicotine (Nicoderm Cq 21mg) 1 patch PRN DAILY PRN TD SMOKING CESSATION Last administered on 03/29/17 06:21; Start 03/27/17 at 18:30 Ondansetron HCl (Zofran) 4 mg PRN Q8HRS PRN IV NAUSEA/VOMITING; Start 03/27/17 at 18:30; Stop 03/27/17 at 19:12; Status DC Fentanyl Citrate (Fentanyl 2ml Vial) 50 mcg PRN Q2HR PRN IV PAIN; Start at 18:30; Stop 03/28/17 at 18:29; Status DC Acetaminophen (Tylenol) 650 mg PRN Q4HRS PRN PO FEVER; Start 03/27/17 at 18:30 ; Stop 03/27/17 at 19:12; Status DC Albuterol/ Ipratropium (Duoneb) 3 ml RTQID NEB ; Start 03/27/17 at 20:00; Stop 03/27/17 at 20:00; Status DC Potassium Chloride (Klor-Con) 40 meq 1X ONCE PO Last administered on 18:51; Start 03/27/17 at 19:00; Stop 03/27/17 at 19:01; Status DC Furosemide (Lasix) 20 mg 1X ONCE IVP Last administered on 03/27/17 19:37; Start 03/27/17 at 19:30; Stop 03/27/17 at 19:31; Status DC Acetaminophen (Tylenol) 650 mg PRN Q6HRS PRN PO FEVER; Start 03/27/17 at 19:15 Ondansetron HCl (Zofran) 4 mg PRN Q6HRS PRN IV NAUSEA/VOMITING; Start 03/27/17 at 19:15 Morphine Sulfate 2 mg PRN Q2HR PRN IV PAIN; Start 03/27/17 at 19:15 Tramadol HCl (Ultram) 50 mg PRN Q6HRS PRN PO PAIN; Start 03/27/17 at 19:15 Hydralazine HCl (Apresoline) 10 mg PRN Q4HRS PRN IVP ELEVATED BP, SEE COMMENTS ; Start 03/27/17 at 19:15 Docusate Sodium (Colace) 100 mg PRN DAILY PRN PO CONSTIPATION; Start 03/27/17 at 19:15 Allopurinol (Zyloprim) 200 mg DAILY PO Last administered on 03/29/17 09:14; Start 03/28/17 at 09:00 Clonazepam (KlonoPIN) 0.5 mg PRN QHS PRN PO INSOMNIA; Start 03/27/17 at 19:15 Furosemide (Lasix) 40 mg [id number] PO Last administered on 03/29/17 13:49; Start 03/28/17 at 07:00 Levothyroxine Sodium (Synthroid) 125 mcg DAILY07 PO Last administered on 06:20; Start 03/28/17 at 07:00 Methadone HCl (Dolophine) 10 mg BID PO ; Start 03/27/17 at 21:00; Stop 03/28/17 at 08:08; Status DC Potassium Chloride (Klor-Con) 40 meq BIDWMEALS PO Last administered on 09:13; Start 03/28/17 at 17:00 Non-Formulary Medication 2 puff Q4HRS INH ; Start 03/27/17 at 20:00; Status UNV Fluoxetine HCl (PROzac) 40 mg DAILY PO Last administered on 03/29/17 09:14; Start 03/28/17 at 09:00 Non-Formulary Medication 1 cap DAILY IH ; Start 03/28/17 at 09:00; Status UNV Enoxaparin Sodium (Lovenox 40mg Syringe) 40 mg Q12H SQ Last administered on 03/29 09:14; Start 03/27/17 at 21:00 Albuterol/ Ipratropium (Duoneb) 3 ml RTQID NEB Last administered on 03/29/17 11 :40; Start 03/27/17 at 20:00 Albuterol Sulfate (Ventolin Neb Soln) 2.5 mg PRN Q2HR PRN NEB SHORTNESS OF BREATH; Start 03/27/17 at 19:15 Guaifenesin (Mucinex) 600 mg BID PO Last administered on 03/29/17 09:14; Start 03/27/17 at 21:00 Potassium Chloride (KCl Oral Soln) 40 meq Q4H PEG Last administered on 08:46; Start 03/28/17 at 06:00; Stop 03/28/17 at 10:01; Status DC Non-Formulary Medication 1 ea DAILY PO Last administered on 03/29/17 09:00; Start 03/28/17 at 09:00; Stop 03/29/17 at 13:57; Status DC Potassium Chloride 50 ml @ 50 mls/hr Q1H IV ; Start 03/28/17 at 09:15; Stop at 11:14; Status UNV Potassium Chloride 100 ml @ 100 mls/hr Q1H IV Last administered on 03/28/17 13 :09; Start 03/28/17 at 09:30; Stop 03/28/17 at 13:29; Status DC Non-Formulary Medication 1 ea DAILY PO ; Start 03/30/17 at 07:00 Active Scripts Active Reported Stiolto Respimat Inhal [place] (Tiotropium Br/Olodaterol HCl) 4 Gm Mist.inhal Klor-Con M20 (Potassium Chloride) 20 Meq Tab.er.prt 80 Meq PO DAILY Methadone Hcl 10 Mg Tablet 140 Mg PO DAILY Klonopin (Clonazepam) 0.5 Mg Tablet 0.5 Mg PO DAILY PRN Allopurinol 100 Mg Tablet 2 Tab PO DAILY Prozac (Fluoxetine Hcl) 40 Mg Capsule 1 Cap PO DAILY Ventolin Hfa Inhaler (Albuterol Sulfate) 18 Gm Hfa.aer.ad 2 Puff INH Q4HRS Furosemide 20 Mg Tablet 2 Tab PO TID Levothyroxine Sodium 50 Mcg Tablet 2.5 Tab PO DAILY Spiriva (Tiotropium [place]) 18 Mcg Cap.w.dev 1 Cap IH DAILY Vitals/I & O Vital Sign - Last 24 Hours 03/28/17 03/28/17 03/28/17 03/28/17 15:38 19:14 19:45 19:57 Temp 98.3 98.3 Pulse 79 Resp 18 B/P (MAP) 111/53 (72) Pulse Ox 95 93 95 O2 Delivery Nasal Cannula Nasal Cannula Nasal Cannula Nasal Cannula O2 Flow Rate 2.0 2.0 2.0 2.0 03/28/17 03/29/17 03/29/17 03/29/17 22:41 03:41 07:00 07:42 Temp 98.4 97.2 98.6 98.4 97.2 98.6 Pulse 80 86 83 Resp 16 16 18 B/P (MAP) 103/54 (70) 107/56 (73) 106/65 (79) 111/30 (57) Pulse Ox 94 90 92 92 O2 Delivery Nasal Cannula Nasal Cannula Nasal Cannula Nasal Cannula O2 Flow Rate 2.0 2.0 2.0 2.0 03/29/17 03/29/17 03/29/17 07:51 11:00 11:42 Temp 97.4 97.4 Pulse 81 Resp 18 B/P (MAP) 102/54 (70) Pulse Ox 92 O2 Delivery Nasal Cannula Nasal Cannula Nasal Cannula O2 Flow Rate 2.0 2.0 2.0 Intake and Output 03/28/17 03/28/17 03/29/17 15:00 23:00 07:00 Intake Total 240 ml 400 ml 600 ml Output Total 200 ml 500 ml Balance 40 ml -100 ml 600 ml SVITLANA FLAHERTY MD Mar 29, 2017 15:41
[2017-03-29 19:07] VITALS: BP 116/58
[2017-03-29 23:05] VITALS: BP 114/59
[2017-03-30 02:53] VITALS: BP 113/62
[2017-03-30] MEDS: FUROSEMIDE 40 MG TABLET. PO SCH ×2 (06:36→13:10)
[2017-03-30] MEDS: LEVOTHYROXINE 125 MCG TABLET PO SCH (06:36)
[2017-03-30] MEDS: [UNRECOGNIZED DRUG - OTHER] PO SCH ×2 (06:43→09:00)
[2017-03-30] MEDS: METHADONE PO SCH ×2 (06:43→09:00)
[2017-03-30 07:00] VITALS: BP 122/62
[2017-03-30] MEDS: IPRATRPIUM/ALBUTEROL 0.5/2.5MG 3 ML NEBU. NEB SCH ×2 (08:14→11:55)
[2017-03-30 09:44] LABS: CALCIUM 8.2 mg/dL (8.5-10.1); GFR 57.4; MAGNESIUM 1.5 mg/dL (1.8-2.4)
[2017-03-30] MEDS: NICOTINE 21MG PATCH. TD PRN (10:11)
[2017-03-30] MEDS: FLUoxetine HCL 20 MG CAPSULE PO SCH (10:12)
[2017-03-30] MEDS: ENOXAPARIN 40 MG/0.4 ML SYRINGE. SQ SCH (10:12)
[2017-03-30] MEDS: POTASSIUM CHLORIDE 20 MEQ TABLET.ER. PO SCH (10:13)
[2017-03-30] MEDS: ALLOPURINOL 100 MG TABLET. PO SCH (10:14)
[2017-03-30 11:00] VITALS: BP 110/54
--- NOTE | 2017-03-30 12:12 | PDOC ---
CARDIO Progress Notes Date and Time Date of Service 03/30/17 Time of Evaluation 1200 Subjective Subjective: No Chest Pain, No shortness of breath, No Palpitations, Other ( wanting to go home ) Vitals Vitals Vital Signs Date Time Temp Pulse Resp B/P (MAP) Pulse Ox O2 Delivery O2 Flow Rate FiO2 03/30/17 11:57 Nasal Cannula 2.0 03/30/17 11:00 98.7 85 18 110/54 (72) 94 98.7 Weight Weight [ ] Input and Output Intake and Output Intake and Output 03/30/17 07:00 Intake Total 1120 ml Balance 1120 ml Intake Oral 1120 ml # Voids 5 Laboratory Labs Laboratory Tests Test 03/30/17 08:55 Sodium Level 142 mmol/L (136-145) Potassium Level 3.0 mmol/L (3.5-5.1) Chloride Level 95 mmol/L (98-107) Carbon Dioxide Level 41 mmol/L (21-32) Anion Gap 6 (6-14) Blood Urea Nitrogen 16 mg/dL (7-20) Creatinine 1.0 mg/dL (0.6-1.0) Estimated GFR (Cockcroft-Gault) 57.4 Glucose Level 149 mg/dL (70-99) Calcium Level 8.2 mg/dL (8.5-10.1) Magnesium Level 1.5 mg/dL (1.8-2.4) Physical Exam HEENT: Neck Supple W Full Motion Chest: Symmetric LUNGS: Clear to Auscultation Heart: S1S2, RRR, no murmurs Abdomen: Soft N/T Extremities: Other (1-2+ bilateral LE edema ) Neurology: alert, oriented, follow commands Assessment Assessment 1. Mild NT pro BNP elevation; CXR and clinical cute not consistent with acute HF. 2. Acute on chronic respiratory failure with AE COPD; oxygen dependant- improved. Continued management per PCP 3. Chronic lower extremity edema/lymphedema - per PCP. Venous reflux study negative. Recommendations Continue routine oral diuresis Supportive care May discharge from a CV standpoint and f/u in our office in 2-3 months. RIA ANDERSON APRN Mar 30, 2017 12:12
--- NOTE | 2017-03-30 14:48 | PDOC ---
PROGRESS NOTES Chief Complaint Chief Complaint 1. COPD exacerbation 2. CHF: mild diastolic with pA pressure 35mm at echo in Oct 2016 3. Lymphedema 4. Tobacco abuse 5. DM2 6. Hypothyroidism: mildly elevated TSH in Oct 7. Hyponatremia: minimal 8. Hypokalemia: 2.8 on admission 8. Mild protein malnutrition in face of morbid obesity 9. Chronic methadone user with hx opioid abuse History of Present Illness History of Present Illness patient is resting comfortably in bed on nasal cannula for oxygen, she denies any complaints Vitals Vitals Vital Signs Date Time Temp Pulse Resp B/P (MAP) Pulse Ox O2 Delivery O2 Flow Rate FiO2 03/30/17 11:57 Nasal Cannula 2.0 03/30/17 11:00 98.7 85 18 110/54 (72) 94 98.7 Physical Exam General: Alert, Oriented X3, Cooperative, No acute distress Heart: Regular rate, No murmurs Lungs: Clear, Other (poor air movement) Abdomen: Normal bowel sounds, Soft Extremities: No cyanosis, No edema, Other (+2 edema, b/l LE) Skin: No breakdown, Other (RLE erythema) Labs LABS Laboratory Tests Test 03/30/17 08:55 Sodium Level 142 mmol/L (136-145) Potassium Level 3.0 mmol/L (3.5-5.1) Chloride Level 95 mmol/L (98-107) Carbon Dioxide Level 41 mmol/L (21-32) Anion Gap 6 (6-14) Blood Urea Nitrogen 16 mg/dL (7-20) Creatinine 1.0 mg/dL (0.6-1.0) Estimated GFR (Cockcroft-Gault) 57.4 Glucose Level 149 mg/dL (70-99) Calcium Level 8.2 mg/dL (8.5-10.1) Magnesium Level 1.5 mg/dL (1.8-2.4) Review of Systems Review of Systems denies nausea, vomiting, headache, diarrhea denies SOB Assessment and Plan Assessmemt and Plan Assessment: 1. COPD exacerbation 2. CHF: mild diastolic with pA pressure 35mm at echo in Oct 2016 3. Lymphedema 4. Tobacco abuse 5. DM2 6. Hypothyroidism: mildly elevated TSH in Fe 7. Hyponatremia: minimal 8. Hypokalemia: 2.8 on admission 8. Mild protein malnutrition in face of morbid obesity 9. Chronic methadone user with hx opioid abuse Plan: 1. Continue supplemental oxygen, breathing treatments, nebs, 2. Appreciate cardiology subspecialty input 3. Nicotine patch 4. Continue home meds 5. Discussed plan of care with nursing 6. Recheck BMP and CBC tomorrow, Na 142 and K 3.0 today 7. Nutrition consulted 8. Lovenox for DVT ppx 9. PT/OT with focus on lymphedema Problems: Comment Review of Relevant I have reviewed the following items trever (where applicable) has been applied. Labs Laboratory Tests Test 03/29/17 08:58 03/30/17 08:55 Sodium Level 143 mmol/L (136-145) 142 mmol/L (136-145) Potassium Level 3.2 mmol/L (3.5-5.1) 3.0 mmol/L (3.5-5.1) Chloride Level 98 mmol/L (98-107) 95 mmol/L (98-107) Carbon Dioxide Level 43 mmol/L (21-32) 41 mmol/L (21-32) Anion Gap 2 (6-14) 6 (6-14) Blood Urea Nitrogen 13 mg/dL (7-20) 16 mg/dL (7-20) Creatinine 1.0 mg/dL (0.6-1.0) 1.0 mg/dL (0.6-1.0) Estimated GFR (Cockcroft-Gault) 57.4 57.4 Glucose Level 123 mg/dL (70-99) 149 mg/dL (70-99) Calcium Level 8.3 mg/dL (8.5-10.1) 8.2 mg/dL (8.5-10.1) Thyroid Stimulating Hormone (TSH) 3.232 uIU/mL (0.358-3.74) Magnesium Level 1.5 mg/dL (1.8-2.4) Laboratory Tests Test 03/30/17 08:55 Sodium Level 142 mmol/L (136-145) Potassium Level 3.0 mmol/L (3.5-5.1) Chloride Level 95 mmol/L (98-107) Carbon Dioxide Level 41 mmol/L (21-32) Anion Gap 6 (6-14) Blood Urea Nitrogen 16 mg/dL (7-20) Creatinine 1.0 mg/dL (0.6-1.0) Estimated GFR (Cockcroft-Gault) 57.4 Glucose Level 149 mg/dL (70-99) Calcium Level 8.2 mg/dL (8.5-10.1) Magnesium Level 1.5 mg/dL (1.8-2.4) Medications Current Medications Potassium Chloride (Klor-Con) 40 meq 1X ONCE PO Last administered on 17:49; Start 03/27/17 at 18:00; Stop 03/27/17 at 18:01; Status DC Nicotine (Nicoderm Cq 21mg) 1 patch PRN DAILY PRN TD SMOKING CESSATION Last administered on 03/30/17 10:11; Start 03/27/17 at 18:30 Ondansetron HCl (Zofran) 4 mg PRN Q8HRS PRN IV NAUSEA/VOMITING; Start 03/27/17 at 18:30; Stop 03/27/17 at 19:12; Status DC Fentanyl Citrate (Fentanyl 2ml Vial) 50 mcg PRN Q2HR PRN IV PAIN; Start at 18:30; Stop 03/28/17 at 18:29; Status DC Acetaminophen (Tylenol) 650 mg PRN Q4HRS PRN PO FEVER; Start 03/27/17 at 18:30 ; Stop 03/27/17 at 19:12; Status DC Albuterol/ Ipratropium (Duoneb) 3 ml RTQID NEB ; Start 03/27/17 at 20:00; Stop 03/27/17 at 20:00; Status DC Potassium Chloride (Klor-Con) 40 meq 1X ONCE PO Last administered on 18:51; Start 03/27/17 at 19:00; Stop 03/27/17 at 19:01; Status DC Furosemide (Lasix) 20 mg 1X ONCE IVP Last administered on 03/27/17 19:37; Start 03/27/17 at 19:30; Stop 03/27/17 at 19:31; Status DC Acetaminophen (Tylenol) 650 mg PRN Q6HRS PRN PO FEVER; Start 03/27/17 at 19:15 Ondansetron HCl (Zofran) 4 mg PRN Q6HRS PRN IV NAUSEA/VOMITING; Start 03/27/17 at 19:15 Morphine Sulfate 2 mg PRN Q2HR PRN IV PAIN; Start 03/27/17 at 19:15 Tramadol HCl (Ultram) 50 mg PRN Q6HRS PRN PO PAIN; Start 03/27/17 at 19:15 Hydralazine HCl (Apresoline) 10 mg PRN Q4HRS PRN IVP ELEVATED BP, SEE COMMENTS ; Start 03/27/17 at 19:15 Docusate Sodium (Colace) 100 mg PRN DAILY PRN PO CONSTIPATION; Start 03/27/17 at 19:15 Allopurinol (Zyloprim) 200 mg DAILY PO Last administered on 03/30/17 10:14; Start 03/28/17 at 09:00 Clonazepam (KlonoPIN) 0.5 mg PRN QHS PRN PO INSOMNIA; Start 03/27/17 at 19:15 Furosemide (Lasix) 40 mg [id number] PO Last administered on 03/30/17 13:10; Start 03/28/17 at 07:00 Levothyroxine Sodium (Synthroid) 125 mcg DAILY07 PO Last administered on 06:36; Start 03/28/17 at 07:00 Methadone HCl (Dolophine) 10 mg BID PO ; Start 03/27/17 at 21:00; Stop 03/28/17 at 08:08; Status DC Potassium Chloride (Klor-Con) 40 meq BIDWMEALS PO Last administered on 10:13; Start 03/28/17 at 17:00 Non-Formulary Medication 2 puff Q4HRS INH ; Start 03/27/17 at 20:00; Status UNV Fluoxetine HCl (PROzac) 40 mg DAILY PO Last administered on 03/30/17 10:12; Start 03/28/17 at 09:00 Non-Formulary Medication 1 cap DAILY IH ; Start 03/28/17 at 09:00; Status UNV Enoxaparin Sodium (Lovenox 40mg Syringe) 40 mg Q12H SQ Last administered on 03/30 10:12; Start 03/27/17 at 21:00 Albuterol/ Ipratropium (Duoneb) 3 ml RTQID NEB Last administered on 03/30/17 11 :55; Start 03/27/17 at 20:00 Albuterol Sulfate (Ventolin Neb Soln) 2.5 mg PRN Q2HR PRN NEB SHORTNESS OF BREATH; Start 03/27/17 at 19:15 Guaifenesin (Mucinex) 600 mg BID PO Last administered on 03/30/17 10:13; Start 03/27/17 at 21:00 Potassium Chloride (KCl Oral Soln) 40 meq Q4H PEG Last administered on 08:46; Start 03/28/17 at 06:00; Stop 03/28/17 at 10:01; Status DC Non-Formulary Medication 1 ea DAILY PO Last administered on 03/29/17 09:00; Start 03/28/17 at 09:00; Stop 03/29/17 at 13:57; Status DC Potassium Chloride 50 ml @ 50 mls/hr Q1H IV ; Start 03/28/17 at 09:15; Stop at 11:14; Status UNV Potassium Chloride 100 ml @ 100 mls/hr Q1H IV Last administered on 03/28/17 13 :09; Start 03/28/17 at 09:30; Stop 03/28/17 at 13:29; Status DC Non-Formulary Medication 1 ea DAILY PO Last administered on 03/30/17 06:43; Start 03/30/17 at 07:00 Active Scripts Active Reported Stiolto Respimat Inhal [place] (Tiotropium Br/Olodaterol HCl) 4 Gm Mist.inhal Klor-Con M20 (Potassium Chloride) 20 Meq Tab.er.prt 80 Meq PO DAILY Methadone Hcl 10 Mg Tablet 140 Mg PO DAILY Klonopin (Clonazepam) 0.5 Mg Tablet 0.5 Mg PO DAILY PRN Allopurinol 100 Mg Tablet 2 Tab PO DAILY Prozac (Fluoxetine Hcl) 40 Mg Capsule 1 Cap PO DAILY Ventolin Hfa Inhaler (Albuterol Sulfate) 18 Gm Hfa.aer.ad 2 Puff INH Q4HRS Furosemide 20 Mg Tablet 2 Tab PO TID Levothyroxine Sodium 50 Mcg Tablet 2.5 Tab PO DAILY Spiriva (Tiotropium [place]) 18 Mcg Cap.w.dev 1 Cap IH DAILY Vitals/I & O Vital Sign - Last 24 Hours 03/29/17 03/29/17 03/29/17 03/29/17 15:00 16:03 19:07 19:40 Temp 98.2 98.4 98.2 98.4 Pulse 77 76 Resp 18 16 B/P (MAP) 102/42 (62) 116/58 (77) Pulse Ox 92 90 95 O2 Delivery Nasal Cannula Nasal Cannula Nasal Cannula Nasal Cannula O2 Flow Rate 2.0 2.0 2.0 2.0 03/29/17 03/29/17 03/30/17 03/30/17 20:10 23:05 02:53 07:00 Temp 98.3 98.5 98.6 98.3 98.5 98.6 Pulse 79 81 78 Resp 16 16 18 B/P (MAP) 114/59 (77) 113/62 (79) 122/62 (82) Pulse Ox 96 92 90 O2 Delivery Nasal Cannula Nasal Cannula Nasal Cannula Nasal Cannula O2 Flow Rate 2.0 2.0 2.0 2.0 03/30/17 03/30/17 03/30/17 08:15 11:00 11:57 Temp 98.7 98.7 Pulse 85 Resp 18 B/P (MAP) 110/54 (72) Pulse Ox 94 O2 Delivery Nasal Cannula Nasal Cannula Nasal Cannula O2 Flow Rate 2.0 3.0 2.0 Intake and Output 03/29/17 03/29/17 03/30/17 15:00 23:00 07:00 Intake Total 820 ml 300 ml Balance 820 ml 300 ml ROMELIA PATEL III DO Mar 30, 2017 14:48
[2017-03-30 15:00] VITALS: BP 111/53
[2017-03-30] MEDS ORDERED: NICO1PAT21 TD ×2 (15:23→15:25)
== END 2017-03-30 16:10 | disposition home or self-care (01) | DRG 291 ==
LOC: ER 15:57 → 2 NORTH 17:41
PROVIDERS: ADMIT Internal Medicine; ATTEND Internal Medicine
DX: I50.43 Acute on chronic combined systolic (congestive) and diastolic (congestive) heart failure (principal); J96.21 Acute and chronic respiratory failure with hypoxia; J44.1 Chronic obstructive pulmonary disease with (acute) exacerbation; E44.0 Moderate protein-calorie malnutrition; E87.1 Hypo-osmolality and hyponatremia; E87.6 Hypokalemia; E03.9 Hypothyroidism, unspecified; E11.9 Type 2 diabetes mellitus without complications; E66.01 Morbid (severe) obesity due to excess calories; F17.210 Nicotine dependence, cigarettes, uncomplicated; I08.1 Rheumatic disorders of both mitral and tricuspid valves; F11.10 Opioid abuse, uncomplicated; F32.9 Major depressive disorder, single episode, unspecified; G89.29 Other chronic pain; I89.0 Lymphedema, not elsewhere classified; M10.9 Gout, unspecified; Z82.49 Family history of ischemic heart disease and other diseases of the circulatory system; Z83.3 Family history of diabetes mellitus; Z99.81 Dependence on supplemental oxygen; Z90.49 Acquired absence of other specified parts of digestive tract; Z90.89 Acquired absence of other organs; Z68.39 Body mass index [BMI] 39.0-39.9, adult; Z71.6 Tobacco abuse counseling
CPT/HCPCS: 36415; 71010; 80048; 80053; 81001; 82553; 83735; 83880; 84443; 84484; 85027; 93005; 94250; 94640; 94760; J1650; J3480; J7620; 97110; 97116; 97535; 99285-25

== ENCOUNTER 2017-11-16 16:40 | Inpatient (IN) | payer MEDICARE, MEDICAID ==
[2017-11-16 17:36] LABS: BILIRUBIN,URINE NEGATIVE (NEG); CLARITY,URINE CLEAR; COLOR,URINE YELLOW; GLUCOSE,URINE NEGATIVE (NEG); NITRITE,URINE NEGATIVE (NEG); PROTEIN,URINE NEGATIVE (NEG-TRACE); UROBILINOGEN,URINE 0.2 mg/dL (0.2 mg/dL)
[2017-11-16 18:02] LABS: BACTERIA,URINE FEW /HPF (0-FEW); RBC,URINE 0 /HPF (0-2); SQUAMOUS EPITHELIAL CELL,UR MOD /LPF; WBC,URINE OCC /HPF (0-4)
[2017-11-16 18:28] LABS: ADD MAN DIFF? NO
[2017-11-16 18:29] LABS: BASO # 0.1 x10^3/uL (0.0-0.2); BASO % 1 % (0-3); EOS # 0.1 x10^3/uL (0.0-0.7); EOS % 1 % (0-3); HEMATOCRIT 47.5 % (36.0-47.0); LYMPH # 2.2 x10^3/uL (1.0-4.8); LYMPH % 26 % (24-48); MEAN CORPUSCULAR HEMOGLOBIN 30 pg (25-35); MEAN CORPUSCULAR HGB CONC 34 g/dL (31-37); MEAN CORPUSCULAR VOLUME 90 fL (79-100); MONO # 0.7 x10^3/uL (0.0-1.1); MONO % 9 % (0-9); NEUT # 5.5 x10^3uL (1.8-7.7); NEUT % 64 % (31-73); PLATELET COUNT 162 x10^3/uL (140-400); RED BLOOD COUNT 5.27 x10^6/uL (3.50-5.40); RED CELL DISTRIBUTION WIDTH 14.4 % (11.5-14.5); WHITE BLOOD COUNT 8.6 x10^3/uL (4.0-11.0)
[2017-11-16 18:52] LABS: NT-PRO BNP 687 pg/mL (0-124); TROPONINI < 0.017 ng/mL (0.000-0.055)
[2017-11-16 18:56] LABS: ANION GAP 1 (6-14); BLOOD UREA NITROGEN 14 mg/dL (7-20); BUN/CREATININE RATIO 13 (6-20); CALCIUM 9.1 mg/dL (8.5-10.1); CARBON DIOXIDE 43 mmol/L (21-32); CHLORIDE 98 mmol/L (98-107); CREATININE 1.1 mg/dL (0.6-1.0); GFR 51.2; GLUCOSE 96 mg/dL (70-99); SODIUM 142 mmol/L (136-145)
[2017-11-16 19:02] LABS: ALBUMIN 3.2 g/dL (3.4-5.0); ALBUMIN/GLOBULIN RATIO 0.7 (1.0-1.7); ALK PHOS 153 U/L (46-116); ALT (SGPT) 39 U/L (14-59); AST (SGOT) 42 U/L (15-37); LIPASE 113 U/L (73-393); TOTAL BILIRUBIN 0.5 mg/dL (0.2-1.0); TOTAL PROTEIN 7.5 g/dL (6.4-8.2)
[2017-11-16] MEDS ORDERED: NITROGLYCERIN SUBLINGUAL 0.4 MG BOTTLE OF 25. SL (19:15)
[2017-11-16] MEDS: ONDANSETRON PF 4 MG/2 ML VIAL. IV (19:44)
[2017-11-16] MEDS: FUROSEMIDE 40 MG/4 ML VIAL. IVP (19:44)
[2017-11-16] MEDS: fentaNYL PF VIAL 100 MCG/2 ML VIAL IV (19:45)
[2017-11-16] MEDS: VANCOMYCIN PER PHARMACY MC (20:28)
[2017-11-16] MEDS: VANCOMYCIN 2 GM in IV DEXTROSE 5% 500 ML IV (20:58)
[2017-11-16 22:56] LABS: TROPONINI < 0.017 ng/mL (0.000-0.055)
[2017-11-17] MEDS ORDERED: NON FORMULARY ITEM (Albuterol Sulfate (Ventolin Hfa Inhaler) 2 PUFF) INH (00:15)
[2017-11-17] MEDS ORDERED: ALBUTEROL SULFATE 2.5 MG/3 ML NEBU. NEB (00:30)
[2017-11-17] MEDS: NICOTINE 21MG PATCH. TD ×2 (00:31→09:39)
[2017-11-17] MEDS: clonazePAM 0.5 MG TABLET PO (00:31)
[2017-11-17 01:02] LABS: ADD MAN DIFF? NO
[2017-11-17 01:06] LABS: BASO # 0.1 x10^3/uL (0.0-0.2); BASO % 1 % (0-3); EOS # 0.1 x10^3/uL (0.0-0.7); EOS % 1 % (0-3); HEMATOCRIT 42.3 % (36.0-47.0); HEMOGLOBIN 14.1 g/dL (12.0-15.5); LYMPH # 2.2 x10^3/uL (1.0-4.8); LYMPH % 29 % (24-48); MEAN CORPUSCULAR HEMOGLOBIN 30 pg (25-35); MEAN CORPUSCULAR HGB CONC 33 g/dL (31-37); MEAN CORPUSCULAR VOLUME 90 fL (79-100); MONO # 0.9 x10^3/uL (0.0-1.1); MONO % 12 % (0-9); NEUT # 4.4 x10^3uL (1.8-7.7); NEUT % 57 % (31-73); PLATELET COUNT 152 x10^3/uL (140-400); RED BLOOD COUNT 4.68 x10^6/uL (3.50-5.40); RED CELL DISTRIBUTION WIDTH 14.2 % (11.5-14.5); WHITE BLOOD COUNT 7.7 x10^3/uL (4.0-11.0)
[2017-11-17 01:26] LABS: ALBUMIN 2.6 g/dL (3.4-5.0); ALBUMIN/GLOBULIN RATIO 0.6 (1.0-1.7); ALK PHOS 121 U/L (46-116); ALT (SGPT) 35 U/L (14-59); ANION GAP 0 (6-14); AST (SGOT) 37 U/L (15-37); BLOOD UREA NITROGEN 14 mg/dL (7-20); BUN/CREATININE RATIO 12 (6-20); CALCIUM 8.4 mg/dL (8.5-10.1); CARBON DIOXIDE 42 mmol/L (21-32); CHLORIDE 100 mmol/L (98-107); CREATININE 1.2 mg/dL (0.6-1.0); GFR 46.3; GLUCOSE 120 mg/dL (70-99); SODIUM 142 mmol/L (136-145); TOTAL BILIRUBIN 0.5 mg/dL (0.2-1.0); TOTAL PROTEIN 6.9 g/dL (6.4-8.2)
[2017-11-17 01:43] LABS: POTASSIUM 2.3 mmol/L (3.5-5.1)
[2017-11-17 01:43] LABS: TROPONINI < 0.017 ng/mL (0.000-0.055)
[2017-11-17] MEDS: POTASSIUM CHLORIDE 20 MEQ TABLET.ER. PO ×3 (02:37→14:36)
[2017-11-17] MEDS: LEVOTHYROXINE 125 MCG TABLET PO (06:28)
[2017-11-17] MEDS: METHADONE PO ×2 (07:00→09:00)
[2017-11-17] MEDS: IPRATRPIUM/ALBUTEROL 0.5/2.5MG 3 ML NEBU. NEB ×4 (07:54→20:06)
[2017-11-17] MEDS ORDERED: METHADONE 10 MG TABLET. PO (09:00)
[2017-11-17] MEDS ORDERED: OLODATEROL HCL INH (09:00)
[2017-11-17] MEDS ORDERED: TIOTROPIUM BR INH (09:00)
[2017-11-17] MEDS: FUROSEMIDE 20 MG TABLET PO ×2 (09:32→14:36)
[2017-11-17] MEDS: FLUoxetine HCL 20 MG CAPSULE PO (09:34)
[2017-11-17] MEDS: VANCOMYCIN 1.5 GM in IV DEXTROSE 5 %-0.2 % NACL 500 ML IV (09:38)
[2017-11-17] MEDS: ALLOPURINOL 100 MG TABLET. PO (09:38)
[2017-11-17] MEDS: fentaNYL PF VIAL 100 MCG/2 ML VIAL IV (09:52)
[2017-11-17] MEDS ORDERED: ONDANSETRON PF 4 MG/2 ML VIAL. IV (11:30)
[2017-11-17] MEDS ORDERED: MORPHINE SULFATE 2 MG/ML DISP.SYRIN. IV (13:30)
[2017-11-17] MEDS ORDERED: ceFAZolin SODIUM 1 GM in IV DEXTROSE 5% 50 ML IV (14:00)
[2017-11-17] MEDS: NYSTATIN 100,000 UNIT/GM TOPICAL OINTMENT 15GM TUBE. TP ×2 (14:36→21:00)
[2017-11-17] MEDS: ceFAZolin SODIUM IV Push 1 GM VIAL. IVP ×2 (14:37→22:00)
[2017-11-17] MEDS: IV NORMAL SALINE 500ML BAG 500 ML IV (14:40)
[2017-11-17] MEDS: ACETAMINOPHEN 325 MG TABLET. PO (15:04)
[2017-11-17 16:18] LABS: SEDIMENTATION RATE 21 (0-25)
[2017-11-17] MEDS: LACTOBACILLUS RHAMNOSUS GG 1 CAPSULE. PO (19:44)
[2017-11-17] MEDS: diphenhydrAMINE HCL 25 MG CAPSULE PO (19:45)
[2017-11-17] MEDS: HYDROcodone/APAP 5/325MG 1 TAB TABLET PO (19:45)
[2017-11-18 05:12] LABS: CALCIUM 8.2 mg/dL (8.5-10.1); GLUCOSE 132 mg/dL (70-99)
[2017-11-18 05:13] LABS: ANION GAP 4 (6-14); BLOOD UREA NITROGEN 21 mg/dL (7-20); CARBON DIOXIDE 40 mmol/L (21-32); CHLORIDE 97 mmol/L (98-107); CREATININE 1.8 mg/dL (0.6-1.0); MAGNESIUM 1.8 mg/dL (1.8-2.4); POTASSIUM 2.6 mmol/L (3.5-5.1); SODIUM 141 mmol/L (136-145)
[2017-11-18] MEDS: LEVOTHYROXINE 125 MCG TABLET PO (06:11)
[2017-11-18] MEDS: POTASSIUM CHLORIDE 20 MEQ TABLET.ER. PO ×4 (06:12→16:21)
[2017-11-18] MEDS: ceFAZolin SODIUM IV Push 1 GM VIAL. IVP (06:12)
[2017-11-18] MEDS: IPRATRPIUM/ALBUTEROL 0.5/2.5MG 3 ML NEBU. NEB ×3 (08:05→16:00)
[2017-11-18] MEDS: FLUoxetine HCL 20 MG CAPSULE PO (09:02)
[2017-11-18] MEDS: NICOTINE 21MG PATCH. TD (09:04)
[2017-11-18] MEDS: LACTOBACILLUS RHAMNOSUS GG 1 CAPSULE. PO (09:04)
[2017-11-18] MEDS: ALLOPURINOL 100 MG TABLET. PO (09:04)
[2017-11-18] MEDS: NYSTATIN 100,000 UNIT/GM TOPICAL OINTMENT 15GM TUBE. TP (09:05)
[2017-11-18] MEDS: HYDROcodone/APAP 5/325MG 1 TAB TABLET PO (09:08)
[2017-11-18] MEDS: FUROSEMIDE 20 MG TABLET PO ×2 (09:15→16:20)
[2017-11-18] MEDS: METHADONE PO (10:10)
[2017-11-18 12:14] LABS: POTASSIUM 2.8 mmol/L (3.5-5.1)
[2017-11-18] MEDS ORDERED: AMOXICILLIN/K CLAV 500/125MG TABLET. PO (21:00)
== END 2017-11-18 17:03 | disposition home or self-care (01) | DRG 291 ==
LOC: ER 16:40 → 6 SOUTH 19:08
DX: I11.0 Hypertensive heart disease with heart failure (principal); J96.21 Acute and chronic respiratory failure with hypoxia; Z99.81 Dependence on supplemental oxygen; L03.115 Cellulitis of right lower limb; Z68.41 Body mass index [BMI] 40.0-44.9, adult; L03.116 Cellulitis of left lower limb; I50.31 Acute diastolic (congestive) heart failure; I50.9 Heart failure, unspecified; F41.9 Anxiety disorder, unspecified; E03.9 Hypothyroidism, unspecified; E11.9 Type 2 diabetes mellitus without complications; E66.9 Obesity, unspecified; E87.6 Hypokalemia; F17.210 Nicotine dependence, cigarettes, uncomplicated; F32.9 Major depressive disorder, single episode, unspecified; G89.29 Other chronic pain; I89.0 Lymphedema, not elsewhere classified; J44.9 Chronic obstructive pulmonary disease, unspecified; M10.9 Gout, unspecified; Z79.899 Other long term (current) drug therapy; Z91.19 Patient's noncompliance with other medical treatment and regimen; Z91.14 Patient's other noncompliance with medication regimen; Z90.49 Acquired absence of other specified parts of digestive tract; Z83.3 Family history of diabetes mellitus; Z82.49 Family history of ischemic heart disease and other diseases of the circulatory system
CPT/HCPCS: 36415; 71045; 80048; 80053; 81001; 83690; 83735; 83880; 84132; 84484; 85025; 85651; 87086; 93005; 94640; 94760; 96374; 96375; 99285; 99285-25; 99406; J0690; J1940; J2405; J3010; J3370; J7040; J7620; Q0163

== ENCOUNTER → 2018-01-26 | Outpatient (CLI) | payer MEDICARE, MEDICAID | END | disposition home or self-care (01) | LOC: KCIC MRI 10:19 | DX: M51.16 Intervertebral disc disorders with radiculopathy, lumbar region (principal); M48.061 Spinal stenosis, lumbar region without neurogenic claudication; E03.9 Hypothyroidism, unspecified; R29.6 Repeated falls | CPT/HCPCS: 72148 ==

== ENCOUNTER → 2018-04-05 | Outpatient (CLI) | payer MEDICARE, MEDICAID | END | disposition home or self-care (01) | LOC: ECHO 11:07 | DX: I11.0 Hypertensive heart disease with heart failure (principal); I50.32 Chronic diastolic (congestive) heart failure; E11.9 Type 2 diabetes mellitus without complications; I08.1 Rheumatic disorders of both mitral and tricuspid valves; I27.20 Pulmonary hypertension, unspecified; E03.9 Hypothyroidism, unspecified; J44.9 Chronic obstructive pulmonary disease, unspecified | CPT/HCPCS: 93306 ==

== ENCOUNTER 2018-04-12 09:34 | Inpatient (IN) | payer MEDICARE, MEDICAID ==
[2018-04-12 10:14] LABS: ADD MAN DIFF? NO
[2018-04-12] MEDS: MORPHINE SULFATE 10 MG/ML VIAL. IV (10:19)
[2018-04-12 10:23] LABS: BASO # 0.1 x10^3/uL (0.0-0.2); BASO % 1 % (0-3); EOS # 0.1 x10^3/uL (0.0-0.7); EOS % 1 % (0-3); HEMATOCRIT 46.7 % (36.0-47.0); HEMOGLOBIN 15.6 g/dL (12.0-15.5); LYMPH # 1.8 x10^3/uL (1.0-4.8); LYMPH % 20 % (24-48); MEAN CORPUSCULAR HEMOGLOBIN 30 pg (25-35); MEAN CORPUSCULAR HGB CONC 33 g/dL (31-37); MEAN CORPUSCULAR VOLUME 90 fL (79-100); MONO % 11 % (0-9); NEUT # 5.9 x10^3uL (1.8-7.7); NEUT % 67 % (31-73); PLATELET COUNT 135 x10^3/uL (140-400); RED BLOOD COUNT 5.16 x10^6/uL (3.50-5.40); RED CELL DISTRIBUTION WIDTH 13.9 % (11.5-14.5); WHITE BLOOD COUNT 8.8 x10^3/uL (4.0-11.0)
[2018-04-12 10:30] LABS: ANION GAP 4 (6-14); BLOOD UREA NITROGEN 20 mg/dL (7-20); CARBON DIOXIDE 40 mmol/L (21-32); CHLORIDE 93 mmol/L (98-107); CREATININE 1.1 mg/dL (0.6-1.0); GFR 51.2; GLUCOSE 95 mg/dL (70-99); POTASSIUM 3.2 mmol/L (3.5-5.1); SODIUM 137 mmol/L (136-145)
[2018-04-12 10:37] LABS: ALBUMIN 3.3 g/dL (3.4-5.0); ALK PHOS 174 U/L (46-116); ALT (SGPT) 42 U/L (14-59); AST (SGOT) 51 U/L (15-37); DIRECT BILIRUBIN 0.2 mg/dL (0.0-0.2); TOTAL BILIRUBIN 0.5 mg/dL (0.2-1.0); TOTAL PROTEIN 7.9 g/dL (6.4-8.2)
[2018-04-12 10:38] LABS: TROPONINI < 0.017 ng/mL (0.000-0.055)
[2018-04-12 10:41] LABS: NT-PRO BNP 862 pg/mL (0-124)
[2018-04-12] MEDS ORDERED: MORPHINE SULFATE 4 MG/ML DISP.SYRIN. IV (11:45)
[2018-04-12] MEDS: FUROSEMIDE 40 MG/4 ML VIAL. IVP (11:55)
[2018-04-12] MEDS ORDERED: TRIAMCINOLONE 0.1% CREAM TP (13:45)
[2018-04-12] MEDS ORDERED: NON FORMULARY ITEM (Albuterol Sulfate (Ventolin Hfa Inhaler) 2 PUFF) INH (14:00)
[2018-04-12 14:17] LABS: MAGNESIUM 1.7 mg/dL (1.8-2.4)
[2018-04-12] MEDS ORDERED: ALBUTEROL SULFATE 2.5 MG/3 ML NEBU. NEB (14:30)
[2018-04-12] MEDS: MORPHINE IR 15 MG TABLET PO ×2 (14:44→19:46)
[2018-04-12] MEDS: POTASSIUM CHLORIDE 20 MEQ TABLET.ER. PO ×2 (14:44→20:58)
[2018-04-12] MEDS: FUROSEMIDE 20 MG TABLET PO (17:39)
[2018-04-12] MEDS: MAGNESIUM SULFATE 4GM 100 ML IV (17:40)
[2018-04-12] MEDS: ACETAMINOPHEN 325 MG TABLET. PO (17:40)
[2018-04-12] MEDS ORDERED: fentaNYL PF VIAL 100 MCG/2 ML VIAL IV (18:30)
[2018-04-12] MEDS: IPRATRPIUM/ALBUTEROL 0.5/2.5MG 3 ML NEBU. NEB (19:23)
[2018-04-12] MEDS: BUDESONIDE 0.5 MG/2 ML NEBU. NEB (19:23)
[2018-04-12] MEDS: ENOXAPARIN 40 MG/0.4 ML SYRINGE. SQ (20:59)
[2018-04-12] MEDS: NYSTATIN TOPICAL POWDER 15GM BOTTLE. TP (21:00)
[2018-04-12] MEDS: NICOTINE 14MG PATCH. TD (21:08)
[2018-04-13 04:46] LABS: ADD MAN DIFF? NO
[2018-04-13 04:47] LABS: BASO % 1 % (0-3); EOS # 0.1 x10^3/uL (0.0-0.7); EOS % 1 % (0-3); HEMATOCRIT 44.5 % (36.0-47.0); LYMPH # 1.5 x10^3/uL (1.0-4.8); LYMPH % 24 % (24-48); MEAN CORPUSCULAR HEMOGLOBIN 31 pg (25-35); MEAN CORPUSCULAR HGB CONC 34 g/dL (31-37); MEAN CORPUSCULAR VOLUME 92 fL (79-100); MONO # 0.7 x10^3/uL (0.0-1.1); MONO % 11 % (0-9); NEUT # 3.9 x10^3uL (1.8-7.7); NEUT % 64 % (31-73); PLATELET COUNT 105 x10^3/uL (140-400); RED BLOOD COUNT 4.86 x10^6/uL (3.50-5.40); RED CELL DISTRIBUTION WIDTH 14.5 % (11.5-14.5); WHITE BLOOD COUNT 6.1 x10^3/uL (4.0-11.0)
[2018-04-13 05:39] LABS: ALBUMIN 2.9 g/dL (3.4-5.0); ALBUMIN/GLOBULIN RATIO 0.6 (1.0-1.7); ALK PHOS 149 U/L (46-116); ALT (SGPT) 36 U/L (14-59); ANION GAP 4 (6-14); AST (SGOT) 43 U/L (15-37); BLOOD UREA NITROGEN 21 mg/dL (7-20); BUN/CREATININE RATIO 16 (6-20); CALCIUM 8.5 mg/dL (8.5-10.1); CARBON DIOXIDE 39 mmol/L (21-32); CHLORIDE 97 mmol/L (98-107); CREATININE 1.3 mg/dL (0.6-1.0); GFR 42.2; GLUCOSE 190 mg/dL (70-99); SODIUM 140 mmol/L (136-145); TOTAL BILIRUBIN 0.6 mg/dL (0.2-1.0); TOTAL PROTEIN 7.5 g/dL (6.4-8.2)
[2018-04-13 05:42] LABS: POTASSIUM 2.7 mmol/L (3.5-5.1)
[2018-04-13 06:23] LABS: MAGNESIUM 2.4 mg/dL (1.8-2.4)
[2018-04-13] MEDS: POTASSIUM CHLORIDE 20 MEQ TABLET.ER. PO ×6 (06:25→20:46)
[2018-04-13] MEDS: LEVOTHYROXINE 137 MCG TABLET PO (06:25)
[2018-04-13] MEDS: METHADONE 150 MG PO (06:32)
[2018-04-13] MEDS: IPRATRPIUM/ALBUTEROL 0.5/2.5MG 3 ML NEBU. NEB ×4 (07:30→21:24)
[2018-04-13] MEDS: BUDESONIDE 0.5 MG/2 ML NEBU. NEB ×2 (07:30→21:25)
[2018-04-13] MEDS: ALLOPURINOL 100 MG TABLET. PO (07:59)
[2018-04-13] MEDS: FUROSEMIDE 20 MG TABLET PO ×2 (08:00→13:49)
[2018-04-13] MEDS: MAGNESIUM OXIDE 400 MG TABLET PO (08:00)
[2018-04-13] MEDS: ENOXAPARIN 40 MG/0.4 ML SYRINGE. SQ ×2 (09:00→20:50)
[2018-04-13] MEDS ORDERED: NICOTINE 21MG PATCH. TD (09:00)
[2018-04-13] MEDS: NYSTATIN TOPICAL POWDER 15GM BOTTLE. TP ×3 (09:00→20:45)
[2018-04-13] MEDS: MORPHINE IR 15 MG TABLET PO ×2 (09:28→16:26)
[2018-04-13 13:16] LABS: ANION GAP 1 (6-14); CARBON DIOXIDE 41 mmol/L (21-32); CHLORIDE 96 mmol/L (98-107); SODIUM 138 mmol/L (136-145)
[2018-04-13 13:20] LABS: POTASSIUM 2.7 mmol/L (3.5-5.1)
[2018-04-13] MEDS: NICOTINE 14MG PATCH. TD (16:19)
[2018-04-13] MEDS ORDERED: POTASSIUM CHLORIDE 20 MEQ TABLET.ER. PO (17:00)
[2018-04-13] MEDS: clonazePAM 0.5 MG TABLET PO (20:50)
[2018-04-14] MEDS: LEVOTHYROXINE 137 MCG TABLET PO (05:34)
[2018-04-14] MEDS: POTASSIUM CHLORIDE 20 MEQ TABLET.ER. PO ×3 (05:35→11:30)
[2018-04-14] MEDS: METHADONE 150 MG PO (05:35)
[2018-04-14] MEDS: BUDESONIDE 0.5 MG/2 ML NEBU. NEB (07:36)
[2018-04-14] MEDS: IPRATRPIUM/ALBUTEROL 0.5/2.5MG 3 ML NEBU. NEB ×2 (07:36→11:19)
[2018-04-14] MEDS: ALLOPURINOL 100 MG TABLET. PO (08:16)
[2018-04-14] MEDS: MAGNESIUM OXIDE 400 MG TABLET PO (08:17)
[2018-04-14] MEDS: FUROSEMIDE 20 MG TABLET PO (08:17)
[2018-04-14] MEDS: MORPHINE IR 15 MG TABLET PO (08:17)
[2018-04-14] MEDS: ENOXAPARIN 40 MG/0.4 ML SYRINGE. SQ (08:19)
[2018-04-14] MEDS: NYSTATIN TOPICAL POWDER 15GM BOTTLE. TP (08:23)
[2018-04-14 12:16] LABS: ANION GAP 3 (6-14); CARBON DIOXIDE 39 mmol/L (21-32); CHLORIDE 97 mmol/L (98-107); POTASSIUM 3.6 mmol/L (3.5-5.1); SODIUM 139 mmol/L (136-145)
== END 2018-04-14 13:07 | disposition home or self-care (01) | DRG 291 ==
LOC: ER 09:34 → 5 NORTH 11:35
DX: I11.0 Hypertensive heart disease with heart failure (principal); J96.20 Acute and chronic respiratory failure, unspecified whether with hypoxia or hypercapnia; Z68.41 Body mass index [BMI] 40.0-44.9, adult; J44.1 Chronic obstructive pulmonary disease with (acute) exacerbation; I50.33 Acute on chronic diastolic (congestive) heart failure; E03.9 Hypothyroidism, unspecified; E11.9 Type 2 diabetes mellitus without complications; E66.01 Morbid (severe) obesity due to excess calories; E87.6 Hypokalemia; F17.210 Nicotine dependence, cigarettes, uncomplicated; G89.29 Other chronic pain; M10.9 Gout, unspecified; M19.90 Unspecified osteoarthritis, unspecified site; F41.9 Anxiety disorder, unspecified; F19.10 Other psychoactive substance abuse, uncomplicated; G47.33 Obstructive sleep apnea (adult) (pediatric); I27.21 Secondary pulmonary arterial hypertension; Z90.89 Acquired absence of other organs; Z82.3 Family history of stroke; Z82.49 Family history of ischemic heart disease and other diseases of the circulatory system; Z90.49 Acquired absence of other specified parts of digestive tract; Z99.81 Dependence on supplemental oxygen; Z82.61 Family history of arthritis; Z71.6 Tobacco abuse counseling
CPT/HCPCS: 36415; 71045; 80048; 80051; 80053; 80076; 83735; 83880; 84484; 85025; 93005; 93970; 94640; 94760; 96374; 96375; 97110-GP; 97116-GP; 97140-GO; 97162-GP; 97165; 97165-GO; 97166-GO; 97530-GP; 99285; 99285-25; J1650; J1940; J2270; J3475; J7620; J7626

== ENCOUNTER 2019-01-04 16:56 | Inpatient (IN) | payer MEDICARE, MEDICAID ==
[~2019-01-04] VITALS: Ht 167.6 cm; Wt 116.7 kg
[~2019-01-04 16:56] MED LIST changes: +AMOX1TAB58 PO; +BUME1TAB3 PO; +HYDR-3164 PO; -HYDR-971 PO; +LEVO137T3 PO; +MAGN400C PO; +METF500T16 PO; -METF500T4 PO; +METO5TAB4 PO; +NICO1PAT21 TD; +NYST15CR TP; +POTA10TA12 PO; +POTA20TA82 PO; -POTASSIUM CHLO10 MEQ PO; -SPIR25TA3 PO; +SPIR25TA5 PO; +TIOT4MIS3 INH
[2019-01-04 17:40] LABS: BASO # 0.1 x10^3/uL (0.0-0.2); BASO % 1 % (0-3); EOS # 0.1 x10^3/uL (0.0-0.7); EOS % 1 % (0-3); HEMATOCRIT 46.3 % (36.0-47.0); HEMOGLOBIN 14.7 g/dL (12.0-15.5); LYMPH # 1.5 x10^3/uL (1.0-4.8); LYMPH % 23 % (24-48); MEAN CORPUSCULAR HEMOGLOBIN 29 pg (25-35); MEAN CORPUSCULAR HGB CONC 32 g/dL (31-37); MEAN CORPUSCULAR VOLUME 92 fL (79-100); MONO # 0.6 x10^3/uL (0.0-1.1); MONO % 10 % (0-9); NEUT # 4.2 x10^3uL (1.8-7.7); NEUT % 65 % (31-73); PLATELET COUNT 117 x10^3/uL (140-400); RED BLOOD COUNT 5.05 x10^6/uL (3.50-5.40); RED CELL DISTRIBUTION WIDTH 14.7 % (11.5-14.5); WHITE BLOOD COUNT 6.5 x10^3/uL (4.0-11.0)
[2019-01-04 17:47] LABS: PROTHROMBIN TIME PATIENT 13.7 SEC (11.7-14.0)
[2019-01-04 17:50] LABS: CALCIUM 8.7 mg/dL (8.5-10.1); CREATININE 1.1 mg/dL (0.6-1.0); POTASSIUM 4.5 mmol/L (3.5-5.1)
--- NOTE | 2019-01-04 17:55 | PHYS DOC ---
Past Medical History Past Medical History: CHF, COPD, Diabetes-Type II, Hypothyroid, Other Additional Past Medical Histor: CHRONIC PAIN to back and bilateral legs. (GROVER LEGER MD) Past Surgical History: Appendectomy, Cholecystectomy, Tonsillectomy (GROVER LEGER MD) Alcohol Use: None Drug Use: None (GROVER LEGER MD) Adult General Chief Complaint Chief Complaint: LOWER EXTREMITY SWELLING HPI HPI Patient is a 58 year old female who presents with complaining of lower extremity edema and pain. Patient states she has chronic lower extremity edema and currently taking Lasix but for the last 2-3 weeks she has had more edema, erythema and pain of her bilateral lower extremities. Patient rated her pain 8/ 10. Patient complaining of gaining weight. Patient also complaining of intermittent episodes of shortness of breath with supine position and exertion and generalized weakness. Patient complaining of episodes of chest pain during shortness of breath with radiation to her back. Patient denies fever and chills , abdominal pain, vomiting and diarrhea, urinary symptom. Patient was seen by her primary care physician and sent to ER for more evaluation. (GROVER LEGER MD) Review of Systems Review of Systems Constitutional: Denies fever or chills [] Eyes: Denies change in visual acuity, redness, or eye pain [] HENT: Denies nasal congestion or sore throat [] Respiratory: Reports shortness of breath Cardiovascular: No additional information not addressed in HPI [] GI: Denies abdominal pain, nausea, vomiting, bloody stools or diarrhea [] : Denies dysuria or hematuria [] Musculoskeletal: Denies back pain, reports extremity pain and edema Integument: Denies rash or skin lesions [] Neurologic: Denies headache, focal weakness or sensory changes [] Endocrine: Denies polyuria or polydipsia [] All other systems were reviewed and found to be within normal limits, except as documented in this note. (GROVER LEGER MD) Current Medications Current Medications Current Medications Medications (Trade) Dose Ordered Sig/Pietro Start Time Stop Time Status Last Admin Dose Admin Cefazolin Sodium 50 ml @ 100 mls/hr 1X ONCE 01/04/19 20:15 01/04/19 20:44 Fentanyl Citrate (Fentanyl 2ml Vial) 50 mcg PRN Q4HRS PRN 01/04/19 19:45 01/05/19 19:44 Ondansetron HCl (Zofran) 4 mg PRN Q8HRS PRN 01/04/19 19:45 01/05/19 19:44 Sodium Chloride 1,000 ml @ 125 mls/hr Q8H 01/04/19 19:45 01/05/19 19:44 (HAYES MCCARTHY DO) Allergies Allergies Allergies Coded Allergies Type Severity Reaction Last Updated Verified No Known Drug Allergies 10/08/14 No (HAYES MCCARTHY DO) Physical Exam Physical Exam Constitutional: Well developed, well nourished, mild distress, non-toxic appearance. [] HENT: Normocephalic, atraumatic. Eyes: PERRLA, EOMI, conjunctiva normal, no discharge. [] Neck: Normal range of motion, no tenderness, supple, no stridor. [] Cardiovascular:Heart rate regular rhythm, no murmur [] Lungs & Thorax: Decrease of bilateral air movement, currently on 2 L of home oxygen Abdomen: Bowel sounds normal, soft, no tenderness, no masses, no pulsatile masses. [] Skin: Warm, dry, no erythema, no rash. [] Back: No tenderness, no CVA tenderness. [] Extremities: Bilateral lower extremity 3+ edema with tenderness and erythema of legs Neurologic: Alert and oriented X 3, normal motor function, normal sensory function, no focal deficits noted. [] Psychologic: Affect normal, judgement normal, mood normal. [] (GROVER LEGER MD) Current Patient Data Vital Signs Vital Signs Date Time Temp Pulse Resp B/P (MAP) Pulse Ox O2 Delivery O2 Flow Rate FiO2 01/04/19 18:55 83 17 126/66 (86) 94 Room Air 01/04/19 17:52 2.0 01/04/19 17:00 98.3 98.3 (HAYES MCCARTHY DO) Lab Values Laboratory Tests Test 01/04/19 17:25 White Blood Count 6.5 x10^3/uL (4.0-11.0) Red Blood Count 5.05 x10^6/uL (3.50-5.40) Hemoglobin 14.7 g/dL (12.0-15.5) Hematocrit 46.3 % (36.0-47.0) Mean Corpuscular Volume 92 fL (79-100) Mean Corpuscular Hemoglobin 29 pg (25-35) Mean Corpuscular Hemoglobin Concent 32 g/dL (31-37) Red Cell Distribution Width 14.7 % (11.5-14.5) H Platelet Count 117 x10^3/uL (140-400) L Neutrophils (%) (Auto) 65 % (31-73) Lymphocytes (%) (Auto) 23 % (24-48) L Monocytes (%) (Auto) 10 % (0-9) H Eosinophils (%) (Auto) 1 % (0-3) Basophils (%) (Auto) 1 % (0-3) Neutrophils # (Auto) 4.2 x10^3uL (1.8-7.7) Lymphocytes # (Auto) 1.5 x10^3/uL (1.0-4.8) Monocytes # (Auto) 0.6 x10^3/uL (0.0-1.1) Eosinophils # (Auto) 0.1 x10^3/uL (0.0-0.7) Basophils # (Auto) 0.1 x10^3/uL (0.0-0.2) Prothrombin Time 13.7 SEC (11.7-14.0) Prothrombin Time INR 1.1 (0.8-1.1) Sodium Level 145 mmol/L (136-145) Potassium Level 4.5 mmol/L (3.5-5.1) Chloride Level 106 mmol/L (98-107) Carbon Dioxide Level 34 mmol/L (21-32) H Anion Gap 5 (6-14) L Blood Urea Nitrogen 10 mg/dL (7-20) Creatinine 1.1 mg/dL (0.6-1.0) H Estimated GFR (Cockcroft-Gault) 51.0 BUN/Creatinine Ratio 9 (6-20) Glucose Level 92 mg/dL (70-99) Lactic Acid Level 2.4 mmol/L (0.4-2.0) H Calcium Level 8.7 mg/dL (8.5-10.1) Magnesium Level 2.1 mg/dL (1.8-2.4) Total Bilirubin 0.4 mg/dL (0.2-1.0) Aspartate Amino Transferase (AST) 37 U/L (15-37) Alanine Aminotransferase (ALT) 29 U/L (14-59) Alkaline Phosphatase 195 U/L (46-116) H Creatine Kinase 63 U/L (26-192) Troponin I Quantitative < 0.017 ng/mL (0.000-0.055) FC-Dsv-Y-Type Natriuretic Peptide 635 pg/mL (0-124) H Total Protein 7.7 g/dL (6.4-8.2) Albumin 3.0 g/dL (3.4-5.0) L Albumin/Globulin Ratio 0.6 (1.0-1.7) L Laboratory Tests 01/04/19 17:25 Laboratory Tests 01/04/19 17:25 (HAYES MCCARTHY DO) EKG EKG [] (GROVER LEGER MD) Radiology/Procedures Radiology/Procedures [] (GROVER LEGER MD) Course & Med Decision Making Course & Med Decision Making Pertinent Labs and Imaging studies are pending. Evaluation of patient in ER showed 58-year-old female patient with complaining of increasing lower extremity edema and episodes of exertional of shortness of breath for 3 weeks and sent from primary care physician office to ER. Labs and chest x-ray and EKG is pending. Patient care transferred to Dr. Mccarthy at 1800 (GROVER LEGER MD) Dragon Disclaimer Dragon Disclaimer This electronic medical record was generated, in whole or in part, using a voice recognition dictation system. (GROVER LEGER MD) Departure Departure Impression: Primary Impression: Cellulitis of both lower extremities Additional Impressions: Lower extremity edema CHF (congestive heart failure) Disposition: 09 ADMITTED INPATIENT Admitting Physician: Manjula Martinez (HAYES MCCARTHY DO) Condition: STABLE Referrals: TERESA MCKEON MD (PCP) Problem Qualifiers Additional Impressions: CHF (congestive heart failure) Heart failure type: unspecified Heart failure chronicity: acute on chronic Qualified Codes: I50.9 - Heart failure, unspecified GROVER LEGER MD Jan 04, 2019 17:55 HAYES MCCARTHY DO Jan 04, 2019 19:55
[2019-01-04 17:57] LABS: ALBUMIN/GLOBULIN RATIO 0.6 (1.0-1.7); MAGNESIUM 2.1 mg/dL (1.8-2.4); TOTAL BILIRUBIN 0.4 mg/dL (0.2-1.0); TOTAL PROTEIN 7.7 g/dL (6.4-8.2)
[2019-01-04] MEDS ORDERED: fentaNYL PF VIAL 100 MCG/2 ML VIAL IV ONE (18:00)
[2019-01-04] MEDS ORDERED: ONDANSETRON PF 4 MG/2 ML VIAL. IV PRN ×2 (19:45→20:00)
[2019-01-04 19:52] LABS: BILIRUBIN,URINE NEGATIVE (NEG); CLARITY,URINE CLEAR; COLOR,URINE YELLOW; NITRITE,URINE NEGATIVE (NEG); PH,URINE 6.5; PROTEIN,URINE NEGATIVE (NEG-TRACE); UROBILINOGEN,URINE 0.2 mg/dL (0.2 mg/dL)
[2019-01-04 19:56] LABS: BACTERIA,URINE FEW /HPF (0-FEW); RBC,URINE 0 /HPF (0-2); SQUAMOUS EPITHELIAL CELL,UR MOD /LPF; WBC,URINE OCC /HPF (0-4)
[2019-01-04] MEDS: IV NORMAL SALINE 1000ML BAG 1,000 ML IV SCH (19:57)
[2019-01-04] MEDS ORDERED: NON FORMULARY ITEM (Albuterol Sulfate (Ventolin Hfa Inhaler) 2 PUFF) INH PRN (20:00)
--- NOTE | 2019-01-04 20:06 | PDOC1 ---
History and Physical Date of Admission Date of Admission DATE: 01/04/19 TIME: 19:59 Identification/Chief Complaint Chief Complaint SOA, legs swollen again Source Source: Caregiver, Chart review, Patient History of Present Illness History of Present Illness 54-year-old white female known to Dr. Gutiérrez because of diastolic CHF maintained on Bumex 1 mg daily and claims compliance-she is recalcitrant to by mouth Lasix. Last admission was September 2017 for the same. She denies fever , legs are red hot swollen, tight. Reports SOA but no chest pain, looks uncomfortable as I see her in the ER because of the leg swelling and tightness. Some congestion on chest x-ray BNP mildly elevated 159. Creatinine chronically elevated. Lactate elevated 2.4. Blood pressure good. Admitted because of leg edema September 2017 cardio note are as follows: 1. Acute on chronic diastolic CHF: compensated 2. AECOPD; improved 3. Chronic lymphedema 4. Hypokalemia 5. Metabolic syndrome: A1C 6.3 6. Morbid obesity 7. [place]RO: improved Past Medical History Cardiovascular: CHF, HTN, Other Pulmonary: COPD CENTRAL NERVOUS SYSTEM: Other GI: No pertinent hx Heme/Onc: No pertinent hx Hepatobiliary: No pertinent hx Psych: Anxiety, Addictions Musculoskeletal: Osteoarthritis Rheumatologic: Gout Renal/: No pertinent hx Endocrine: Hypothyroidism Past Surgical History Past Surgical History: Appendectomy, Cholecystectomy Family History Family History: Diabetes, Hypertension, Stroke Social History Smoke: No ALCOHOL: none Drugs: None Current Problem List Problem List Problems Medical Problems: (1) Cellulitis of both lower extremities Status: Acute (2) Lower extremity edema Status: Acute Current Medications Current Medications Current Medications Fentanyl Citrate (Fentanyl 2ml Vial) 50 mcg 1X ONCE IV Last administered on 01/04/19at 17:52; Start 01/04/19 at 18:00; Stop 01/04/19 at 18:01; Status DC Cefazolin Sodium 50 ml @ 100 mls/hr 1X ONCE IV Last administered on 01/04/19at 19:58; Start 01/04/19 at 20:15; Stop 01/04/19 at 20:44 Ondansetron HCl (Zofran) 4 mg PRN Q8HRS PRN IV NAUSEA/VOMITING; Start 01/04/19 at 19:45; Stop 01/04/19 at 19:58; Status DC Fentanyl Citrate (Fentanyl 2ml Vial) 50 mcg PRN Q4HRS PRN IV PAIN; Start at 19:45; Stop 01/05/19 at 19:44 Sodium Chloride 1,000 ml @ 125 mls/hr Q8H IV Last administered on 01/04/19at 19: 57; Start 01/04/19 at 19:45; Stop 01/05/19 at 19:44 Ondansetron HCl (Zofran) 4 mg PRN Q6HRS PRN IV NAUSEA/VOMITING; Start 01/04/19 at 20:00; Status UNV Furosemide (Lasix) 60 mg BID92 IVP ; Start 01/05/19 at 09:00; Status UNV Furosemide (Lasix) 60 mg 1X ONCE IVP ; Start 01/04/19 at 20:00; Stop 01/04/19 at 20:01; Status UNV Acetaminophen (Tylenol) 500 mg PRN Q6HRS PRN PO MILD PAIN / TEMP; Start at 20:00; Status UNV Clindamycin Phosphate 50 ml @ 100 mls/hr Q8HRS IV ; Start 01/04/19 at 22:00; Status UNV Active Scripts Active Nystatin 15 Gm Cream..g. 1 Pako TP TID Reported Potassium Chloride 20 Meq Tablet.er 60 Meq PO HS Potassium Chloride 20 Meq Tablet.er 60 Meq PO DAILY08 Bumetanide 1 Mg Tablet 1 Tab PO DAILY Magnesium (Magnesium Oxide) 400 Mg Capsule 1 Cap PO DAILY Allopurinol 100 Mg Tablet 2 Tab PO DAILY Levothyroxine Sodium 137 Mcg Tablet 1 Tab PO DAILY Potassium Chloride 20 Meq Tablet.er 60 Meq PO BID Replace Potassium Klor-Con M20 (Potassium Chloride) 20 Meq Tab.er.prt 40 Meq PO DAILYBFRLUN Methadone Hcl 10 Mg Tablet 140 Mg PO DAILY Klonopin (Clonazepam) 0.5 Mg Tablet 1 Mg PO PRN QHS PRN Allopurinol 100 Mg Tablet 2 Tab PO DAILY Ventolin Hfa Inhaler (Albuterol Sulfate) 18 Gm Hfa.aer.ad 2 Puff INH PRN Q4HRS PRN Allergies Allergies: Coded Allergies: No Known Drug Allergies (Unverified , 10/08/14) ROS Review of System As per history of present illness, the rest of ROS 14 point negative Physical Exam General: No acute distress HEENT: Atraumatic, PERRLA, EOMI, Mucous membr. moist/pink Lungs: Normal air movement, Other (symmetrical chest expansion, decreased breath sounds secondary to increased AP diameter and poor effort but otherwise no wheezing) Heart: S1S2, RRR, no thrills, no rubs, no gallops, no murmurs Breasts: Normal, Rt breast nml w/o mass, Lt breast nml w/o mass, Nipples normal Abdomen: Normal bowel sounds, Soft, No tenderness, No hepatosplenomegaly, No masses, Other (obese, flabby) Rectal Exam: not examined PELVIC: Nml ext genitalia Extremities: Other (red tight hot swollen +3 tight pitting edema bilateral legs with palpable dorsalis pedis) Neuro: Normal gait, Normal speech, Strength at 5/5 X4 ext, Normal tone, Sensation intact, Cranial nerves 3-12 NL, Reflexes 2+ Psych/Mental Status: Mental status NL, Mood NL Vitals Vitals Vital Signs Date Time Temp Pulse Resp B/P (MAP) Pulse Ox O2 Delivery O2 Flow Rate FiO2 01/04/19 18:55 83 17 126/66 (86) 94 Room Air 01/04/19 17:52 2.0 01/04/19 17:00 98.3 98.3 Labs Labs Laboratory Tests Test 01/04/19 17:25 01/04/19 19:45 White Blood Count 6.5 x10^3/uL (4.0-11.0) Red Blood Count 5.05 x10^6/uL (3.50-5.40) Hemoglobin 14.7 g/dL (12.0-15.5) Hematocrit 46.3 % (36.0-47.0) Mean Corpuscular Volume 92 fL (79-100) Mean Corpuscular Hemoglobin 29 pg (25-35) Mean Corpuscular Hemoglobin Concent 32 g/dL (31-37) Red Cell Distribution Width 14.7 % (11.5-14.5) Platelet Count 117 x10^3/uL (140-400) Neutrophils (%) (Auto) 65 % (31-73) Lymphocytes (%) (Auto) 23 % (24-48) Monocytes (%) (Auto) 10 % (0-9) Eosinophils (%) (Auto) 1 % (0-3) Basophils (%) (Auto) 1 % (0-3) Neutrophils # (Auto) 4.2 x10^3uL (1.8-7.7) Lymphocytes # (Auto) 1.5 x10^3/uL (1.0-4.8) Monocytes # (Auto) 0.6 x10^3/uL (0.0-1.1) Eosinophils # (Auto) 0.1 x10^3/uL (0.0-0.7) Basophils # (Auto) 0.1 x10^3/uL (0.0-0.2) Prothrombin Time 13.7 SEC (11.7-14.0) Prothromb Time International Ratio 1.1 (0.8-1.1) Sodium Level 145 mmol/L (136-145) Potassium Level 4.5 mmol/L (3.5-5.1) Chloride Level 106 mmol/L (98-107) Carbon Dioxide Level 34 mmol/L (21-32) Anion Gap 5 (6-14) Blood Urea Nitrogen 10 mg/dL (7-20) Creatinine 1.1 mg/dL (0.6-1.0) Estimated GFR (Cockcroft-Gault) 51.0 BUN/Creatinine Ratio 9 (6-20) Glucose Level 92 mg/dL (70-99) Lactic Acid Level 2.4 mmol/L (0.4-2.0) Calcium Level 8.7 mg/dL (8.5-10.1) Magnesium Level 2.1 mg/dL (1.8-2.4) Total Bilirubin 0.4 mg/dL (0.2-1.0) Aspartate Amino Transf (AST/SGOT) 37 U/L (15-37) Alanine Aminotransferase (ALT/SGPT) 29 U/L (14-59) Alkaline Phosphatase 195 U/L (46-116) Creatine Kinase 63 U/L (26-192) Troponin I Quantitative < 0.017 ng/mL (0.000-0.055) HG-Kvd-L-Type Natriuretic Peptide 635 pg/mL (0-124) Total Protein 7.7 g/dL (6.4-8.2) Albumin 3.0 g/dL (3.4-5.0) Albumin/Globulin Ratio 0.6 (1.0-1.7) Urine Collection Type Unknown Urine Color Yellow Urine Clarity Clear Urine pH 6.5 Urine Specific [place] 1.010 Urine Protein Negative mg/dL (NEG-TRACE) Urine Glucose (UA) Negative mg/dL (NEG) Urine Ketones (Stick) Negative mg/dL (NEG) Urine Blood Negative (NEG) Urine Nitrite Negative (NEG) Urine Bilirubin Negative (NEG) Urine Urobilinogen Dipstick 0.2 mg/dL (0.2 mg/dL) Urine Leukocyte Esterase Small (NEG) Urine RBC 0 /HPF (0-2) Urine WBC Occ /HPF (0-4) Urine Squamous Epithelial Cells Mod /LPF Urine Bacteria Few /HPF (0-FEW) Laboratory Tests Test 01/04/19 17:25 01/04/19 19:45 White Blood Count 6.5 x10^3/uL (4.0-11.0) Red Blood Count 5.05 x10^6/uL (3.50-5.40) Hemoglobin 14.7 g/dL (12.0-15.5) Hematocrit 46.3 % (36.0-47.0) Mean Corpuscular Volume 92 fL (79-100) Mean Corpuscular Hemoglobin 29 pg (25-35) Mean Corpuscular Hemoglobin Concent 32 g/dL (31-37) Red Cell Distribution Width 14.7 % (11.5-14.5) Platelet Count 117 x10^3/uL (140-400) Neutrophils (%) (Auto) 65 % (31-73) Lymphocytes (%) (Auto) 23 % (24-48) Monocytes (%) (Auto) 10 % (0-9) Eosinophils (%) (Auto) 1 % (0-3) Basophils (%) (Auto) 1 % (0-3) Neutrophils # (Auto) 4.2 x10^3uL (1.8-7.7) Lymphocytes # (Auto) 1.5 x10^3/uL (1.0-4.8) Monocytes # (Auto) 0.6 x10^3/uL (0.0-1.1) Eosinophils # (Auto) 0.1 x10^3/uL (0.0-0.7) Basophils # (Auto) 0.1 x10^3/uL (0.0-0.2) Prothrombin Time 13.7 SEC (11.7-14.0) Prothromb Time International Ratio 1.1 (0.8-1.1) Sodium Level 145 mmol/L (136-145) Potassium Level 4.5 mmol/L (3.5-5.1) Chloride Level 106 mmol/L (98-107) Carbon Dioxide Level 34 mmol/L (21-32) Anion Gap 5 (6-14) Blood Urea Nitrogen 10 mg/dL (7-20) Creatinine 1.1 mg/dL (0.6-1.0) Estimated GFR (Cockcroft-Gault) 51.0 BUN/Creatinine Ratio 9 (6-20) Glucose Level 92 mg/dL (70-99) Lactic Acid Level 2.4 mmol/L (0.4-2.0) Calcium Level 8.7 mg/dL (8.5-10.1) Magnesium Level 2.1 mg/dL (1.8-2.4) Total Bilirubin 0.4 mg/dL (0.2-1.0) Aspartate Amino Transf (AST/SGOT) 37 U/L (15-37) Alanine Aminotransferase (ALT/SGPT) 29 U/L (14-59) Alkaline Phosphatase 195 U/L (46-116) Creatine Kinase 63 U/L (26-192) Troponin I Quantitative < 0.017 ng/mL (0.000-0.055) FF-Dxh-K-Type Natriuretic Peptide 635 pg/mL (0-124) Total Protein 7.7 g/dL (6.4-8.2) Albumin 3.0 g/dL (3.4-5.0) Albumin/Globulin Ratio 0.6 (1.0-1.7) Urine Collection Type Unknown Urine Color Yellow Urine Clarity Clear Urine pH 6.5 Urine Specific [place] 1.010 Urine Protein Negative mg/dL (NEG-TRACE) Urine Glucose (UA) Negative mg/dL (NEG) Urine Ketones (Stick) Negative mg/dL (NEG) Urine Blood Negative (NEG) Urine Nitrite Negative (NEG) Urine Bilirubin Negative (NEG) Urine Urobilinogen Dipstick 0.2 mg/dL (0.2 mg/dL) Urine Leukocyte Esterase Small (NEG) Urine RBC 0 /HPF (0-2) Urine WBC Occ /HPF (0-4) Urine Squamous Epithelial Cells Mod /LPF Urine Bacteria Few /HPF (0-FEW) VTE Prophylaxis Ordered VTE Prophylaxis Devices: Yes VTE Pharmacological Prophylaxi: Yes Assessment/Plan Assessment/Plan Acute on chronic lymphedema recalcitrant to by mouth Lasix-maintained on Bumex 1 mg by mouth daily and claims compliance at home Borderline hypokalemia secondary to diuretic but is on 60 mEq of KCl twice a day at home CK D - creat chronically elevated Elevated lactate Possible mild cellulitis legs versus superficial infection of bilateral lower extremity skin because of tightness Chronic diastolic heart failure Obesity, BMI 39 Chronic pain on methadone 150 mg a day PLAN: admit 2 [place] Lasix 60 now then twice a day IV Cards consult OT for lymphedema Check venous Dopplers r.o DVT - unlikely though She claims it has been over 6 months since the last echo re check CBC tomorrow Add a sedimentation rate tonight Recheck lactate tmr IV Clinda for mile /superficial skin redness Blood cultures have been drawn at ER Further recs pending above Full code Seen at ER Discussed with her my plan of care Recheck CBC and had a sedimentation rate tonight QUINCY DOMINGO MD Jan 04, 2019 20:06
[2019-01-04] MEDS ORDERED: ALBUTEROL SULFATE 2.5 MG/3 ML NEBU. NEB PRN (20:30)
[2019-01-04] MEDS ORDERED: FUROSEMIDE 40 MG/4 ML VIAL. IVP ONE (20:45)
[2019-01-04] MEDS: fentaNYL PF VIAL 100 MCG/2 ML VIAL IV PRN (20:55)
--- NOTE | 2019-01-04 22:13 | RAD ---
INDICATION: BILAT LEG SWELLING COMPARISON: February 2018 TECHNIQUE: Grayscale, color and doppler ultrasound images were obtained of the bilateral lower extremity venous vasculature. RIGHT: No thrombus identified in the common femoral vein, femoral vein, popliteal vein. LEFT: No thrombus identified in the common femoral vein, femoral vein, popliteal vein. IMPRESSION: 1. No thrombus identified in deep venous system of bilateral lower extremities. Limited visualization of calf veins secondary to overlying structures obscuring. There is edema seen. Electronically signed by: Freddie Holder MD (01/04/2019 10:10 PM) [facility]
[2019-01-04 22:15] VITALS: BP 126/81
[2019-01-04] MEDS: ACETAMINOPHEN 500 MG TABLET PO PRN (22:42)
[2019-01-04] MEDS: clonazePAM 0.5 MG TABLET PO PRN (22:42)
[2019-01-04] MEDS: NYSTATIN 100,000 UNIT/GM TOPICAL CREAM 15GM TUBE. TP SCH (22:43)
[2019-01-04] MEDS: CLINDAMYCIN 600MG PREMIX 50 ML IV SCH (23:19)
[2019-01-04] MEDS: ENOXAPARIN 40 MG/0.4 ML SYRINGE. SQ SCH (23:20)
[2019-01-05 03:00] VITALS: BP 107/60
[2019-01-05] MEDS: IV NORMAL SALINE 1000ML BAG 1,000 ML IV SCH ×2 (04:53→11:45)
[2019-01-05] MEDS: LEVOTHYROXINE 137 MCG TABLET PO SCH (05:57)
[2019-01-05] MEDS: CLINDAMYCIN 600MG PREMIX 50 ML IV SCH ×3 (05:57→21:58)
[2019-01-05 07:00] VITALS: BP 94/43
--- NOTE | 2019-01-05 07:06 | EKG ---
[facility] [address] [place] [address] Test Date: 2019-01-04 Test Time: 17:57:52 Pat Name: JULIA MCBRIDE Department: Room: 406 Gender: F Analytical Laboratory Technician: : [id number] Requested By: GROVER LEGER Order Number: [id number] Reading MD: Da Morley MD Measurements Intervals [place] Rate: 92 P: 54 HI: 182 QRS: 63 QRSD: 86 T: 36 QT: 382 QTc: 478 Interpretive Statements SINUS RHYTHM NON-SPECIFIC ST/T CHANGES Electronically Signed On 01-17-2019 9:47:26 CDT by Da Morley MD
--- NOTE | 2019-01-05 07:56 | RAD ---
Examination: PORTABLE CHEST 1V History: ER PATIENT. INTERMITENT LOWER EXTREMITY SWELLING X2 WEEKS. HX COPD. PRIOR XRAY. Comparison/Correlation: 10/12/2018 portable frontal view chest Findings: Portable upright frontal view chest was obtained. Heart size is normal. Pulmonary vasculature is at the upper limit of normal. No pneumothorax. Subtle pulmonary interstitial thickening is similar to prior exams. No focal infiltrate in the interval. No definite effusion or pneumothorax. Any structures are unremarkable for age. Impression: No focal infiltrate. Electronically signed by: John Lucas MD (01/05/2019 7:53 AM) [facility]
[2019-01-05] MEDS: METHADONE HCL PO SCH (08:33)
[2019-01-05] MEDS: MAGNESIUM OXIDE 400 MG TABLET PO SCH (08:34)
[2019-01-05] MEDS: POTASSIUM CHLORIDE 20 MEQ TABLET.ER. PO SCH (08:39)
[2019-01-05] MEDS: ALLOPURINOL 100 MG TABLET. PO SCH (08:40)
--- NOTE | 2019-01-05 08:40 | PDOC2 ---
RIA ANDERSON YEAST PUMPER 01/05/19 0840: CARDIAC CONSULT DATE OF CONSULT Date of Consult DATE: 01/05/19 TIME: 08:37 REASON FOR CONSULT Reason for Consult: CHF exacerbation? REFERRING PHYSICIAN Referring Physician: Dr. Martinez SOURCE Source: Chart review, Patient HISTORY OF PRESENT ILLNESS HISTORY OF PRESENT ILLNESS This is a 58 yo female who presented secondary to worsening lower extremity edema and pain. Patient reports significant swelling for the last couple of weeks. Has been progressively worsening. Are tight, painful, and reddened. Denies any shortness of breath, orthopnea. chest pain, palpitations, dizziness, diaphoresis, or nausea/vomiting. Reports compliance with medications including daily Bumex. Denies any recent illness/fevers or changes in diet at home. PAST MEDICAL HISTORY Past Medical History Cardiovascular: CHF (diastolic), HTN, Other ([facility] 11/2016 without significant disease) Pulmonary: COPD (Oxygen requiring) Psych: Anxiety, Addictions Musculoskeletal: Osteoarthritis Rheumatologic: Gout Endocrine: Hypothyroidism PAST SURGICAL HISTORY Past Surgical History Appendectomy, Cholecystectomy, [facility] FAMILY HISTORY Family History: Diabetes, Hypertension, Stroke SOCIAL HISTORY Social History Smoke: <1 pack per day ALCOHOL: none Drugs: None Lives: with Family CURRENT MEDICATIONS CURRENT MEDICATIONS Current Medications Medications (Trade) Dose Ordered Sig/Pietro Route PRN Reason Start Time Stop Time Status Last Admin Dose Admin Fentanyl Citrate (Fentanyl 2ml Vial) 50 mcg 1X ONCE IV 01/04/19 18:00 01/04/19 18:01 DC 01/04/19 17:52 Cefazolin Sodium 50 ml @ 100 mls/hr 1X ONCE IV 01/04/19 20:15 01/04/19 20:44 DC 01/04/19 19:58 Fentanyl Citrate (Fentanyl 2ml Vial) 50 mcg PRN Q4HRS PRN IV PAIN 01/04/19 19:45 01/05/19 19:44 01/04/19 20:55 Sodium Chloride 1,000 ml @ 125 mls/hr Q8H IV 01/04/19 19:45 01/05/19 19:44 01/05/19 04:53 Furosemide (Lasix) 60 mg 1X ONCE IVP 01/04/19 20:45 01/04/19 20:46 DC 01/04/19 20:48 Acetaminophen (Tylenol) 500 mg PRN Q6HRS PRN PO MILD PAIN / TEMP 01/04/19 20:00 01/04/19 22:42 Clindamycin Phosphate 50 ml @ 100 mls/hr Q8HRS IV 01/04/19 22:00 01/05/19 05:57 Clonazepam (KlonoPIN) 1 mg PRN QHS PRN PO SLEEP 01/04/19 20:00 01/04/19 22:42 Levothyroxine Sodium (Synthroid) 137 mcg DAILY06 PO 01/05/19 06:00 01/05/19 05:57 Nystatin (Mycostatin) 1 elvis TID TP 01/04/19 21:15 01/04/19 22:43 Enoxaparin Sodium (Lovenox 40mg Syringe) 40 mg Q24H SQ 01/04/19 22:00 01/04/19 23:20 ALLERGIES ALLERGIES: Coded Allergies: No Known Drug Allergies (Unverified , 10/08/14) ROS Review of System 14 point ROS conducted with pertinent positives noted above in HPI. PHYSICAL EXAM PHYSICAL EXAM General: Alert, Oriented X3, Cooperative, No acute distress HEENT: Atraumatic, Mucous membr. moist/pink Lungs: CTAOther (diminished) Heart: Regular rate (SR), Other (distant heart sounds) Abdomen: Soft, Other (obese) Extremities: No cyanosis, Other (2+ bilateral LE pitting edema with erythema) Skin: No breakdown, No significant lesion, Other (2+ bilateral pedal pulses) Neuro: Normal speech, Sensation intact Psych/Mental Status: Mental status NL, Mood NL MUSCULOSKELETAL: Osteoarthritic changes both hands VITALS VITALS Vital Signs Date Time Temp Pulse Resp B/P (MAP) Pulse Ox O2 Delivery O2 Flow Rate FiO2 01/05/19 07:24 92 Nasal Cannula 2.0 01/05/19 07:00 98.6 68 18 94/43 (60) 98.6 LABS Lab: Laboratory Tests Test 01/04/19 17:25 01/04/19 19:45 White Blood Count 6.5 x10^3/uL (4.0-11.0) Red Blood Count 5.05 x10^6/uL (3.50-5.40) Hemoglobin 14.7 g/dL (12.0-15.5) Hematocrit 46.3 % (36.0-47.0) Mean Corpuscular Volume 92 fL (79-100) Mean Corpuscular Hemoglobin 29 pg (25-35) Mean Corpuscular Hemoglobin Concent 32 g/dL (31-37) Red Cell Distribution Width 14.7 % (11.5-14.5) Platelet Count 117 x10^3/uL (140-400) Neutrophils (%) (Auto) 65 % (31-73) Lymphocytes (%) (Auto) 23 % (24-48) Monocytes (%) (Auto) 10 % (0-9) Eosinophils (%) (Auto) 1 % (0-3) Basophils (%) (Auto) 1 % (0-3) Neutrophils # (Auto) 4.2 x10^3uL (1.8-7.7) Lymphocytes # (Auto) 1.5 x10^3/uL (1.0-4.8) Monocytes # (Auto) 0.6 x10^3/uL (0.0-1.1) Eosinophils # (Auto) 0.1 x10^3/uL (0.0-0.7) Basophils # (Auto) 0.1 x10^3/uL (0.0-0.2) Erythrocyte Sedimentation Rate 12 (0-25) Prothrombin Time 13.7 SEC (11.7-14.0) Prothromb Time International Ratio 1.1 (0.8-1.1) Sodium Level 145 mmol/L (136-145) Potassium Level 4.5 mmol/L (3.5-5.1) Chloride Level 106 mmol/L (98-107) Carbon Dioxide Level 34 mmol/L (21-32) Anion Gap 5 (6-14) Blood Urea Nitrogen 10 mg/dL (7-20) Creatinine 1.1 mg/dL (0.6-1.0) Estimated GFR (Cockcroft-Gault) 51.0 BUN/Creatinine Ratio 9 (6-20) Glucose Level 92 mg/dL (70-99) Lactic Acid Level 2.4 mmol/L (0.4-2.0) Calcium Level 8.7 mg/dL (8.5-10.1) Magnesium Level 2.1 mg/dL (1.8-2.4) Total Bilirubin 0.4 mg/dL (0.2-1.0) Aspartate Amino Transf (AST/SGOT) 37 U/L (15-37) Alanine Aminotransferase (ALT/SGPT) 29 U/L (14-59) Alkaline Phosphatase 195 U/L (46-116) Creatine Kinase 63 U/L (26-192) Troponin I Quantitative < 0.017 ng/mL (0.000-0.055) FA-Hpe-S-Type Natriuretic Peptide 635 pg/mL (0-124) Total Protein 7.7 g/dL (6.4-8.2) Albumin 3.0 g/dL (3.4-5.0) Albumin/Globulin Ratio 0.6 (1.0-1.7) Urine Collection Type Unknown Urine Color Yellow Urine Clarity Clear Urine pH 6.5 Urine Specific [place] 1.010 Urine Protein Negative mg/dL (NEG-TRACE) Urine Glucose (UA) Negative mg/dL (NEG) Urine Ketones (Stick) Negative mg/dL (NEG) Urine Blood Negative (NEG) Urine Nitrite Negative (NEG) Urine Bilirubin Negative (NEG) Urine Urobilinogen Dipstick 0.2 mg/dL (0.2 mg/dL) Urine Leukocyte Esterase Small (NEG) Urine RBC 0 /HPF (0-2) Urine WBC Occ /HPF (0-4) Urine Squamous Epithelial Cells Mod /LPF Urine Bacteria Few /HPF (0-FEW) ECHOCARDIOGRAM ECHOCARDIOGRAM <Conclusion> The left ventricular systolic function is normal. The Ejection Fraction is 55-60%. There is normal LV segmental wall motion. Trace mitral regurgitation. Trace tricuspid regurgitation. There is no evidence of significant pericardial effusion. DATE: 10/13/18 1103 STRESS TEST STRESS TEST Conclusion 1. No evidence of stress induced EKG changes. 2. There is a mild severity, distal anterior and mid to distal néstor-septal perfusion defect suggestive of small prior infarct with minimal reversibility. 3. Normal EF at > 70% 4. Low to moderate risk study. DATE: 12/12/16 0821 HEART CATH HEART CATH FINDINGS 1. Hemodynamics: Left ventricular end-diastolic pressure of 18 mmHg. No pullback gradient across the aortic valve. 2. Left ventriculography: Normal left ventricle systolic function with ejection fraction estimated at 60%. No significant mitral regurgitation seen. 3. Coronary angiography: a. The left main coronary artery arose from the left sinus of Valsalva, gave rise to the left anterior descending and left circumflex arteries and did not show any significant stenosis. b. The left anterior descending artery did not show any significant stenosis. c. The left circumflex artery did not show any significant stenosis. d. The right coronary artery was a large and dominant vessel arising from the right sinus of Valsalva that did not show any significant stenosis. Conclusion 1. No significant coronary artery disease 2. Normal left ventricle systolic function with ejection fraction estimated at 60% Recommendations Cardiac Risk Reduction Program DATE: 12/22/16 1513 ASSESSMENT/PLAN ASSESSMENT/PLAN 1. Chronic LE edema, ? cellulitis 2. Mild acute on chronic diastolic CHF: mainly right sided, Recent echo with preserved LV systolic function. Cardiac cath in 2017 without any significant CAD 3. COPD/ALISON: has not been using home O2 and continued tobaccoism 4. Chronic opioid use: on methadone 5. Anxiety 6. Morbid obesity Recommendations Continued diuresis Accurate I and O; D/w RN. Add metolazone if diuresis with lasix is inadequate. Smoking cessation. Leg elevation. Unable to tolerate compression stockings due to pain Daily wt. 2 L FR ELIZABETH WILLS MD 01/06/19 0815: CARDIAC CONSULT ASSESSMENT/PLAN ASSESSMENT/PLAN Patient seen and examined 01/05/19. Agree with AGER OPERATOR's assessment and plan. Continue diuresis for mild acute on chronic diastolic heart failure. Recent 2-D echo showed normal LV systolic function. Cardiac catheterization in 2017 did not show any significant coronary artery disease. Continue current treatment for cellulitis per primary team. Thank you for your consultation. RIA ANDERSON APRN Jan 05, 2019 08:40 ELIZABETH WILLS MD Jan 06, 2019 08:15
[2019-01-05 08:52] LABS: CALCIUM 7.9 mg/dL (8.5-10.1); CREATININE 1.1 mg/dL (0.6-1.0); POTASSIUM 3.7 mmol/L (3.5-5.1)
[2019-01-05] MEDS ORDERED: FUROSEMIDE 40 MG/4 ML VIAL. IVP SCH (09:00)
--- NOTE | 2019-01-05 09:41 | PDOC ---
PROGRESS NOTES Chief Complaint Chief Complaint Acute on chronic lymphedema recalcitrant to by mouth Lasix-maintained on Bumex 1 mg by mouth daily and claims compliance at home Borderline hypokalemia secondary to diuretic but is on 60 mEq of KCl twice a day at home CK D - creat chronically elevated Elevated lactate Possible mild cellulitis legs versus superficial infection of bilateral lower extremity skin because of tightness Chronic diastolic heart failure Obesity, BMI 39 Chronic pain on methadone 150 mg a day History of Present Illness History of Present Illness no complaints REdness seems better and swelling somewhat better CARds appreciated Pt on bumex 1 mg at home, recalcitrant to PO lasix PLAN: CPM Diurese elytes while diuresing Seemingly no PT needs Vitals Vitals Vital Signs Date Time Temp Pulse Resp B/P (MAP) Pulse Ox O2 Delivery O2 Flow Rate FiO2 01/05/19 07:24 92 Nasal Cannula 2.0 01/05/19 07:00 98.6 68 18 94/43 (60) 98.6 Physical Exam General: No acute distress Lungs: Clear Abdomen: Normal bowel sounds, Soft, No tenderness, No hepatosplenomegaly, No masses, Other (obese, flabby) Extremities: Other (red tight hot swollen +3 tight pitting edema bilateral legs with palpable dorsalis pedis) Skin: Other (leg swelling plus 2-3) Labs LABS Laboratory Tests Test 01/04/19 17:25 01/04/19 19:45 01/05/19 07:00 01/05/19 07:10 White Blood Count 6.5 x10^3/uL (4.0-11.0) Red Blood Count 5.05 x10^6/uL (3.50-5.40) Hemoglobin 14.7 g/dL (12.0-15.5) Hematocrit 46.3 % (36.0-47.0) Mean Corpuscular Volume 92 fL (79-100) Mean Corpuscular Hemoglobin 29 pg (25-35) Mean Corpuscular Hemoglobin Concent 32 g/dL (31-37) Red Cell Distribution Width 14.7 % (11.5-14.5) Platelet Count 117 x10^3/uL (140-400) Neutrophils (%) (Auto) 65 % (31-73) Lymphocytes (%) (Auto) 23 % (24-48) Monocytes (%) (Auto) 10 % (0-9) Eosinophils (%) (Auto) 1 % (0-3) Basophils (%) (Auto) 1 % (0-3) Neutrophils # (Auto) 4.2 x10^3uL (1.8-7.7) Lymphocytes # (Auto) 1.5 x10^3/uL (1.0-4.8) Monocytes # (Auto) 0.6 x10^3/uL (0.0-1.1) Eosinophils # (Auto) 0.1 x10^3/uL (0.0-0.7) Basophils # (Auto) 0.1 x10^3/uL (0.0-0.2) Erythrocyte Sedimentation Rate 12 (0-25) Prothrombin Time 13.7 SEC (11.7-14.0) Prothromb Time International Ratio 1.1 (0.8-1.1) Sodium Level 145 mmol/L (136-145) 145 mmol/L (136-145) Potassium Level 4.5 mmol/L (3.5-5.1) 3.7 mmol/L (3.5-5.1) Chloride Level 106 mmol/L (98-107) 106 mmol/L (98-107) Carbon Dioxide Level 34 mmol/L (21-32) 33 mmol/L (21-32) Anion Gap 5 (6-14) 6 (6-14) Blood Urea Nitrogen 10 mg/dL (7-20) 12 mg/dL (7-20) Creatinine 1.1 mg/dL (0.6-1.0) 1.1 mg/dL (0.6-1.0) Estimated GFR (Cockcroft-Gault) 51.0 51.0 BUN/Creatinine Ratio 9 (6-20) Glucose Level 92 mg/dL (70-99) 79 mg/dL (70-99) Lactic Acid Level 2.4 mmol/L (0.4-2.0) 1.3 mmol/L (0.4-2.0) Calcium Level 8.7 mg/dL (8.5-10.1) 7.9 mg/dL (8.5-10.1) Magnesium Level 2.1 mg/dL (1.8-2.4) Total Bilirubin 0.4 mg/dL (0.2-1.0) Aspartate Amino Transf (AST/SGOT) 37 U/L (15-37) Alanine Aminotransferase (ALT/SGPT) 29 U/L (14-59) Alkaline Phosphatase 195 U/L (46-116) Creatine Kinase 63 U/L (26-192) Troponin I Quantitative < 0.017 ng/mL (0.000-0.055) DD-Uiv-L-Type Natriuretic Peptide 635 pg/mL (0-124) Total Protein 7.7 g/dL (6.4-8.2) Albumin 3.0 g/dL (3.4-5.0) Albumin/Globulin Ratio 0.6 (1.0-1.7) Urine Collection Type Unknown Urine Color Yellow Urine Clarity Clear Urine pH 6.5 Urine Specific Red [place] 1.010 Urine Protein Negative mg/dL (NEG-TRACE) Urine Glucose (UA) Negative mg/dL (NEG) Urine Ketones (Stick) Negative mg/dL (NEG) Urine Blood Negative (NEG) Urine Nitrite Negative (NEG) Urine Bilirubin Negative (NEG) Urine Urobilinogen Dipstick 0.2 mg/dL (0.2 mg/dL) Urine Leukocyte Esterase Small (NEG) Urine RBC 0 /HPF (0-2) Urine WBC Occ /HPF (0-4) Urine Squamous Epithelial Cells Mod /LPF Urine Bacteria Few /HPF (0-FEW) Assessment and Plan Assessmemt and Plan Problems Medical Problems: (1) Cellulitis of both lower extremities Status: Acute (2) Lower extremity edema Status: Acute Comment Review of Relevant I have reviewed the following items trever (where applicable) has been applied. Labs Laboratory Tests Test 01/04/19 17:25 01/04/19 19:45 01/05/19 07:00 01/05/19 07:10 White Blood Count 6.5 x10^3/uL (4.0-11.0) Red Blood Count 5.05 x10^6/uL (3.50-5.40) Hemoglobin 14.7 g/dL (12.0-15.5) Hematocrit 46.3 % (36.0-47.0) Mean Corpuscular Volume 92 fL (79-100) Mean Corpuscular Hemoglobin 29 pg (25-35) Mean Corpuscular Hemoglobin Concent 32 g/dL (31-37) Red Cell Distribution Width 14.7 % (11.5-14.5) Platelet Count 117 x10^3/uL (140-400) Neutrophils (%) (Auto) 65 % (31-73) Lymphocytes (%) (Auto) 23 % (24-48) Monocytes (%) (Auto) 10 % (0-9) Eosinophils (%) (Auto) 1 % (0-3) Basophils (%) (Auto) 1 % (0-3) Neutrophils # (Auto) 4.2 x10^3uL (1.8-7.7) Lymphocytes # (Auto) 1.5 x10^3/uL (1.0-4.8) Monocytes # (Auto) 0.6 x10^3/uL (0.0-1.1) Eosinophils # (Auto) 0.1 x10^3/uL (0.0-0.7) Basophils # (Auto) 0.1 x10^3/uL (0.0-0.2) Erythrocyte Sedimentation Rate 12 (0-25) Prothrombin Time 13.7 SEC (11.7-14.0) Prothromb Time International Ratio 1.1 (0.8-1.1) Sodium Level 145 mmol/L (136-145) 145 mmol/L (136-145) Potassium Level 4.5 mmol/L (3.5-5.1) 3.7 mmol/L (3.5-5.1) Chloride Level 106 mmol/L (98-107) 106 mmol/L (98-107) Carbon Dioxide Level 34 mmol/L (21-32) 33 mmol/L (21-32) Anion Gap 5 (6-14) 6 (6-14) Blood Urea Nitrogen 10 mg/dL (7-20) 12 mg/dL (7-20) Creatinine 1.1 mg/dL (0.6-1.0) 1.1 mg/dL (0.6-1.0) Estimated GFR (Cockcroft-Gault) 51.0 51.0 BUN/Creatinine Ratio 9 (6-20) Glucose Level 92 mg/dL (70-99) 79 mg/dL (70-99) Lactic Acid Level 2.4 mmol/L (0.4-2.0) 1.3 mmol/L (0.4-2.0) Calcium Level 8.7 mg/dL (8.5-10.1) 7.9 mg/dL (8.5-10.1) Magnesium Level 2.1 mg/dL (1.8-2.4) Total Bilirubin 0.4 mg/dL (0.2-1.0) Aspartate Amino Transf (AST/SGOT) 37 U/L (15-37) Alanine Aminotransferase (ALT/SGPT) 29 U/L (14-59) Alkaline Phosphatase 195 U/L (46-116) Creatine Kinase 63 U/L (26-192) Troponin I Quantitative < 0.017 ng/mL (0.000-0.055) ES-Qrd-V-Type Natriuretic Peptide 635 pg/mL (0-124) Total Protein 7.7 g/dL (6.4-8.2) Albumin 3.0 g/dL (3.4-5.0) Albumin/Globulin Ratio 0.6 (1.0-1.7) Urine Collection Type Unknown Urine Color Yellow Urine Clarity Clear Urine pH 6.5 Urine Specific Red [place] 1.010 Urine Protein Negative mg/dL (NEG-TRACE) Urine Glucose (UA) Negative mg/dL (NEG) Urine Ketones (Stick) Negative mg/dL (NEG) Urine Blood Negative (NEG) Urine Nitrite Negative (NEG) Urine Bilirubin Negative (NEG) Urine Urobilinogen Dipstick 0.2 mg/dL (0.2 mg/dL) Urine Leukocyte Esterase Small (NEG) Urine RBC 0 /HPF (0-2) Urine WBC Occ /HPF (0-4) Urine Squamous Epithelial Cells Mod /LPF Urine Bacteria Few /HPF (0-FEW) Laboratory Tests Test 01/04/19 17:25 01/04/19 19:45 01/05/19 07:00 01/05/19 07:10 White Blood Count 6.5 x10^3/uL (4.0-11.0) Red Blood Count 5.05 x10^6/uL (3.50-5.40) Hemoglobin 14.7 g/dL (12.0-15.5) Hematocrit 46.3 % (36.0-47.0) Mean Corpuscular Volume 92 fL (79-100) Mean Corpuscular Hemoglobin 29 pg (25-35) Mean Corpuscular Hemoglobin Concent 32 g/dL (31-37) Red Cell Distribution Width 14.7 % (11.5-14.5) Platelet Count 117 x10^3/uL (140-400) Neutrophils (%) (Auto) 65 % (31-73) Lymphocytes (%) (Auto) 23 % (24-48) Monocytes (%) (Auto) 10 % (0-9) Eosinophils (%) (Auto) 1 % (0-3) Basophils (%) (Auto) 1 % (0-3) Neutrophils # (Auto) 4.2 x10^3uL (1.8-7.7) Lymphocytes # (Auto) 1.5 x10^3/uL (1.0-4.8) Monocytes # (Auto) 0.6 x10^3/uL (0.0-1.1) Eosinophils # (Auto) 0.1 x10^3/uL (0.0-0.7) Basophils # (Auto) 0.1 x10^3/uL (0.0-0.2) Erythrocyte Sedimentation Rate 12 (0-25) Prothrombin Time 13.7 SEC (11.7-14.0) Prothromb Time International Ratio 1.1 (0.8-1.1) Sodium Level 145 mmol/L (136-145) 145 mmol/L (136-145) Potassium Level 4.5 mmol/L (3.5-5.1) 3.7 mmol/L (3.5-5.1) Chloride Level 106 mmol/L (98-107) 106 mmol/L (98-107) Carbon Dioxide Level 34 mmol/L (21-32) 33 mmol/L (21-32) Anion Gap 5 (6-14) 6 (6-14) Blood Urea Nitrogen 10 mg/dL (7-20) 12 mg/dL (7-20) Creatinine 1.1 mg/dL (0.6-1.0) 1.1 mg/dL (0.6-1.0) Estimated GFR (Cockcroft-Gault) 51.0 51.0 BUN/Creatinine Ratio 9 (6-20) Glucose Level 92 mg/dL (70-99) 79 mg/dL (70-99) Lactic Acid Level 2.4 mmol/L (0.4-2.0) 1.3 mmol/L (0.4-2.0) Calcium Level 8.7 mg/dL (8.5-10.1) 7.9 mg/dL (8.5-10.1) Magnesium Level 2.1 mg/dL (1.8-2.4) Total Bilirubin 0.4 mg/dL (0.2-1.0) Aspartate Amino Transf (AST/SGOT) 37 U/L (15-37) Alanine Aminotransferase (ALT/SGPT) 29 U/L (14-59) Alkaline Phosphatase 195 U/L (46-116) Creatine Kinase 63 U/L (26-192) Troponin I Quantitative < 0.017 ng/mL (0.000-0.055) AP-Kib-O-Type Natriuretic Peptide 635 pg/mL (0-124) Total Protein 7.7 g/dL (6.4-8.2) Albumin 3.0 g/dL (3.4-5.0) Albumin/Globulin Ratio 0.6 (1.0-1.7) Urine Collection Type Unknown Urine Color Yellow Urine Clarity Clear Urine pH 6.5 Urine Specific Red [place] 1.010 Urine Protein Negative mg/dL (NEG-TRACE) Urine Glucose (UA) Negative mg/dL (NEG) Urine Ketones (Stick) Negative mg/dL (NEG) Urine Blood Negative (NEG) Urine Nitrite Negative (NEG) Urine Bilirubin Negative (NEG) Urine Urobilinogen Dipstick 0.2 mg/dL (0.2 mg/dL) Urine Leukocyte Esterase Small (NEG) Urine RBC 0 /HPF (0-2) Urine WBC Occ /HPF (0-4) Urine Squamous Epithelial Cells Mod /LPF Urine Bacteria Few /HPF (0-FEW) Medications Current Medications Fentanyl Citrate (Fentanyl 2ml Vial) 50 mcg 1X ONCE IV Last administered on 01/04/19at 17:52; Start 01/04/19 at 18:00; Stop 01/04/19 at 18:01; Status DC Cefazolin Sodium 50 ml @ 100 mls/hr 1X ONCE IV Last administered on 01/04/19at 19:58; Start 01/04/19 at 20:15; Stop 01/04/19 at 20:44; Status DC Ondansetron HCl (Zofran) 4 mg PRN Q8HRS PRN IV NAUSEA/VOMITING; Start 01/04/19 at 19:45; Stop 01/04/19 at 19:58; Status DC Fentanyl Citrate (Fentanyl 2ml Vial) 50 mcg PRN Q4HRS PRN IV PAIN Last administered on 01/04/19 20:55; Start 01/04/19 at 19:45; Stop 01/05/19 at 19:44 Sodium Chloride 1,000 ml @ 125 mls/hr Q8H IV Last administered on 01/05/19 04 :53; Start 01/04/19 at 19:45; Stop 01/05/19 at 19:44 Ondansetron HCl (Zofran) 4 mg PRN Q6HRS PRN IV NAUSEA/VOMITING; Start 01/04/19 at 20:00 Furosemide (Lasix) 60 mg [id number] IVP ; Start 01/05/19 at 09:00 Furosemide (Lasix) 60 mg 1X ONCE IVP Last administered on 01/04/19 20:48; Start 01/04/19 at 20:45; Stop 01/04/19 at 20:46; Status DC Acetaminophen (Tylenol) 500 mg PRN Q6HRS PRN PO MILD PAIN / TEMP Last administered on 01/04/19 22:42; Start 01/04/19 at 20:00 Clindamycin Phosphate 50 ml @ 100 mls/hr Q8HRS IV Last administered on 05:57; Start 01/04/19 at 22:00 Allopurinol (Zyloprim) 200 mg DAILY PO Last administered on 01/05/19 08:40; Start 01/05/19 at 09:00 Clonazepam (KlonoPIN) 1 mg PRN QHS PRN PO SLEEP Last administered on 01/04/19 22:42; Start 01/04/19 at 20:00 Levothyroxine Sodium (Synthroid) 137 mcg DAILY06 PO Last administered on 05:57; Start 01/05/19 at 06:00 Potassium Chloride (Klor-Con) 40 meq DAILYBFRLUN PO ; Start 01/05/19 at 11:30 Non-Formulary Medication (Albuterol Sulfate (Ventolin Hfa Inhaler)) 2 puff PRN Q4HRS PRN INH WHEEZING; Start 01/04/19 at 20:00; Status UNV Magnesium Oxide (Magnesium Oxide) 400 mg DAILY PO Last administered on 08:34; Start 01/05/19 at 09:00 Non-Formulary Medication (Methadone Hcl ) 150 mg DAILY PO Last administered on 01/05/19at 08:33; Start 01/05/19 at 09:00 Nystatin (Mycostatin) 1 pako TID TP Last administered on 01/04/19at 22:43; Start 01/04/19 at 21:15 Potassium Chloride (Klor-Con) 60 meq DAILYWBKFT PO Last administered on at 08:39; Start 01/05/19 at 08:00 Enoxaparin Sodium (Lovenox 40mg Syringe) 40 mg Q24H SQ Last administered on 01/04at 23:20; Start 01/04/19 at 22:00 Albuterol Sulfate (Ventolin Neb Soln) 2.5 mg PRN Q4HRS PRN NEB SHORTNESS OF BREATH; Start 01/04/19 at 20:30 Active Scripts Active Nystatin 15 Gm Cream..g. 1 Pako TP TID Reported Potassium Chloride 20 Meq Tablet.er 60 Meq PO HS Potassium Chloride 20 Meq Tablet.er 60 Meq PO DAILY08 Bumetanide 1 Mg Tablet 1 Tab PO DAILY Magnesium (Magnesium Oxide) 400 Mg Capsule 1 Cap PO DAILY Allopurinol 100 Mg Tablet 2 Tab PO DAILY Levothyroxine Sodium 137 Mcg Tablet 1 Tab PO DAILY Potassium Chloride 20 Meq Tablet.er 60 Meq PO BID Replace Potassium Klor-Con M20 (Potassium Chloride) 20 Meq Tab.er.prt 40 Meq PO DAILYBFRLUN Methadone Hcl 10 Mg Tablet 140 Mg PO DAILY Klonopin (Clonazepam) 0.5 Mg Tablet 1 Mg PO PRN QHS PRN Allopurinol 100 Mg Tablet 2 Tab PO DAILY Ventolin Hfa Inhaler (Albuterol Sulfate) 18 Gm Hfa.aer.ad 2 Puff INH PRN Q4HRS PRN Vitals/I & O Vital Sign - Last 24 Hours 01/04/19 01/04/19 01/04/19 01/04/19 17:00 17:06 17:36 17:52 Temp 98.3 98.3 Pulse 98 99 88 Resp 19 16 15 18 B/P (MAP) 144/68 (93) 144/68 (93) 131/63 (85) Pulse Ox 88 94 93 98 O2 Delivery Room Air Nasal Cannula Nasal Cannula Nasal Cannula O2 Flow Rate 2.0 2.0 2.0 01/04/19 01/04/19 01/04/19 01/04/19 18:25 18:55 19:25 19:55 Pulse 84 83 73 83 Resp 15 17 17 16 B/P (MAP) 127/60 (82) 126/66 (86) 143/70 (94) 141/65 (90) Pulse Ox 93 94 92 O2 Delivery Nasal Cannula Nasal Cannula Nasal Cannula Nasal Cannula O2 Flow Rate 2.0 2.0 2.0 2.0 01/04/19 01/04/19 01/04/19 01/05/19 20:20 20:55 22:15 03:00 Temp 98.1 97.8 98.1 97.8 Pulse 82 77 Resp 17 18 18 B/P (MAP) 126/81 (96) 107/60 (76) Pulse Ox 97 95 95 O2 Delivery Nasal Cannula Room Air Nasal Cannula Nasal Cannula O2 Flow Rate 2.0 2.0 2.0 01/05/19 01/05/19 07:00 07:24 Temp 98.6 98.6 Pulse 68 Resp 18 B/P (MAP) 94/43 (60) Pulse Ox 89 92 O2 Delivery Nasal Cannula Nasal Cannula O2 Flow Rate 2.0 2.0 Intake and Output 01/04/19 01/04/19 01/05/19 15:00 23:00 07:00 Intake Total 900 ml Balance 900 ml QUINCY DOMINGO MD Jan 05, 2019 09:41
--- NOTE | 2019-01-05 09:50 | NUR ---
SW following for discharge planning. Discussed with RN, pt is from home with daughter. RN advised no SW needs identified at this time, SW will continue to follow for any discharge planning needs.
[2019-01-05] MEDS: NYSTATIN 100,000 UNIT/GM TOPICAL CREAM 15GM TUBE. TP SCH ×3 (09:51→20:22)
[2019-01-05] MEDS: NICOTINE 21MG PATCH. TD SCH (09:51)
[2019-01-05 11:00] VITALS: BP 100/94
[2019-01-05] MEDS ORDERED: POTASSIUM CHLORIDE 20 MEQ TABLET.ER. PO SCH (11:30)
[2019-01-05] MEDS: fentaNYL PF VIAL 100 MCG/2 ML VIAL IV PRN ×2 (12:30→16:45)
--- NOTE | 2019-01-05 12:56 | NUR ---
Patients BP too low to administer Lasix 60mg IV this am at 94/43, held dose and rechecked 2 hours later it was 100/44. Paged Dr. Martinez and recieved new orders to hold am dose and new dose of 40mg to be given at 1400 if in parameters.
[2019-01-05] MEDS: FUROSEMIDE 40 MG/4 ML VIAL. IVP SCH (14:47)
[2019-01-05 15:00] VITALS: BP 107/53
[2019-01-05 19:00] VITALS: BP 117/54
[2019-01-05] MEDS: LACTOBACILLUS RHAMNOSUS GG 1 CAPSULE. PO SCH (20:21)
[2019-01-05] MEDS: ACETAMINOPHEN 500 MG TABLET PO PRN (21:48)
[2019-01-05] MEDS: clonazePAM 0.5 MG TABLET PO PRN (21:54)
[2019-01-05] MEDS: ENOXAPARIN 40 MG/0.4 ML SYRINGE. SQ SCH (21:55)
[2019-01-05 23:00] VITALS: BP 125/55
--- NOTE | 2019-01-05 23:46 | NUR ---
Pt complain of pain. MD notified. No new ordered received. Will continue to monitor.
--- NOTE | 2019-01-05 23:46 | NUR ---
Pt had concern of ADA diet and stated they eat a regular diet. MD notified. Orders received. Will continue to monitor.
[2019-01-06 03:00] VITALS: BP 117/73
[2019-01-06] MEDS: CLINDAMYCIN 600MG PREMIX 50 ML IV SCH (05:30)
[2019-01-06] MEDS: LEVOTHYROXINE 137 MCG TABLET PO SCH (05:31)
[2019-01-06] MEDS: ACETAMINOPHEN 500 MG TABLET PO PRN (05:31)
[2019-01-06 07:00] VITALS: BP 106/57
--- NOTE | 2019-01-06 07:59 | NUR ---
SW following. OT recommending pt go home with lymphedema home health. SW met with pt, pt is agreeable and does not have preference as to which agency. SW to find an agency with a lymphedema specialist. SW will continue to follow. RN notified.
[2019-01-06] MEDS: METHADONE HCL PO SCH (09:02)
[2019-01-06] MEDS: FUROSEMIDE 40 MG/4 ML VIAL. IVP SCH (09:02)
[2019-01-06] MEDS: LACTOBACILLUS RHAMNOSUS GG 1 CAPSULE. PO SCH (09:03)
[2019-01-06] MEDS: NICOTINE 21MG PATCH. TD SCH (09:03)
[2019-01-06] MEDS: MAGNESIUM OXIDE 400 MG TABLET PO SCH (09:03)
[2019-01-06] MEDS: ALLOPURINOL 100 MG TABLET. PO SCH (09:03)
[2019-01-06] MEDS: POTASSIUM CHLORIDE 20 MEQ TABLET.ER. PO SCH (09:03)
[2019-01-06] MEDS: NYSTATIN 100,000 UNIT/GM TOPICAL CREAM 15GM TUBE. TP SCH (09:04)
[2019-01-06] MEDS ORDERED: OXYC5CAP PO (10:39)
[2019-01-06] MEDS ORDERED: CLIN300C8 PO (10:39)
--- NOTE | 2019-01-06 10:44 | PDOC3 ---
Discharge Summary Visit Information Date of Admission: Jan 04, 2019 Date of Discharge: Jan 06, 2019 Admitting Diagnosis Comment: Acute on chronic lymphedema recalcitrant to by mouth Lasix-maintained on Bumex 1 mg by mouth daily and claims compliance at home Borderline hypokalemia secondary to diuretic but is on 60 mEq of KCl twice a day at home CK D - creat chronically elevated Elevated lactate Possible mild cellulitis legs versus superficial infection of bilateral lower extremity skin because of tightness Chronic diastolic heart failure Obesity, BMI 39 Chronic pain on methadone 150 mg a day Final Diagnosis Problems Medical Problems: (1) Cellulitis of both lower extremities Status: Acute (2) Lower extremity edema Status: Acute Brief Hospital Course Allergies Allergies Coded Allergies Type Severity Reaction Last Updated Verified No Known Drug Allergies 10/08/14 No Vital Signs Vital Signs Date Time Temp Pulse Resp B/P (MAP) Pulse Ox O2 Delivery O2 Flow Rate FiO2 01/06/19 08:00 Nasal Cannula 2.0 01/06/19 07:00 98.3 65 17 106/57 (73) 96 98.3 Lab Results Laboratory Tests Test 01/04/19 17:25 01/04/19 19:45 01/05/19 07:00 01/05/19 07:10 White Blood Count 6.5 x10^3/uL (4.0-11.0) Red Blood Count 5.05 x10^6/uL (3.50-5.40) Hemoglobin 14.7 g/dL (12.0-15.5) Hematocrit 46.3 % (36.0-47.0) Mean Corpuscular Volume 92 fL (79-100) Mean Corpuscular Hemoglobin 29 pg (25-35) Mean Corpuscular Hemoglobin Concent 32 g/dL (31-37) Red Cell Distribution Width 14.7 % (11.5-14.5) Platelet Count 117 x10^3/uL (140-400) Neutrophils (%) (Auto) 65 % (31-73) Lymphocytes (%) (Auto) 23 % (24-48) Monocytes (%) (Auto) 10 % (0-9) Eosinophils (%) (Auto) 1 % (0-3) Basophils (%) (Auto) 1 % (0-3) Neutrophils # (Auto) 4.2 x10^3uL (1.8-7.7) Lymphocytes # (Auto) 1.5 x10^3/uL (1.0-4.8) Monocytes # (Auto) 0.6 x10^3/uL (0.0-1.1) Eosinophils # (Auto) 0.1 x10^3/uL (0.0-0.7) Basophils # (Auto) 0.1 x10^3/uL (0.0-0.2) Erythrocyte Sedimentation Rate 12 (0-25) Prothrombin Time 13.7 SEC (11.7-14.0) Prothromb Time International Ratio 1.1 (0.8-1.1) Sodium Level 145 mmol/L (136-145) 145 mmol/L (136-145) Potassium Level 4.5 mmol/L (3.5-5.1) 3.7 mmol/L (3.5-5.1) Chloride Level 106 mmol/L (98-107) 106 mmol/L (98-107) Carbon Dioxide Level 34 mmol/L (21-32) 33 mmol/L (21-32) Anion Gap 5 (6-14) 6 (6-14) Blood Urea Nitrogen 10 mg/dL (7-20) 12 mg/dL (7-20) Creatinine 1.1 mg/dL (0.6-1.0) 1.1 mg/dL (0.6-1.0) Estimated GFR (Cockcroft-Gault) 51.0 51.0 BUN/Creatinine Ratio 9 (6-20) Glucose Level 92 mg/dL (70-99) 79 mg/dL (70-99) Lactic Acid Level 2.4 mmol/L (0.4-2.0) 1.3 mmol/L (0.4-2.0) Calcium Level 8.7 mg/dL (8.5-10.1) 7.9 mg/dL (8.5-10.1) Magnesium Level 2.1 mg/dL (1.8-2.4) Total Bilirubin 0.4 mg/dL (0.2-1.0) Aspartate Amino Transf (AST/SGOT) 37 U/L (15-37) Alanine Aminotransferase (ALT/SGPT) 29 U/L (14-59) Alkaline Phosphatase 195 U/L (46-116) Creatine Kinase 63 U/L (26-192) Troponin I Quantitative < 0.017 ng/mL (0.000-0.055) ZM-Uza-Q-Type Natriuretic Peptide 635 pg/mL (0-124) Total Protein 7.7 g/dL (6.4-8.2) Albumin 3.0 g/dL (3.4-5.0) Albumin/Globulin Ratio 0.6 (1.0-1.7) Urine Collection Type Unknown Urine Color Yellow Urine Clarity Clear Urine pH 6.5 Urine Specific [place] 1.010 Urine Protein Negative mg/dL (NEG-TRACE) Urine Glucose (UA) Negative mg/dL (NEG) Urine Ketones (Stick) Negative mg/dL (NEG) Urine Blood Negative (NEG) Urine Nitrite Negative (NEG) Urine Bilirubin Negative (NEG) Urine Urobilinogen Dipstick 0.2 mg/dL (0.2 mg/dL) Urine Leukocyte Esterase Small (NEG) Urine RBC 0 /HPF (0-2) Urine WBC Occ /HPF (0-4) Urine Squamous Epithelial Cells Mod /LPF Urine Bacteria Few /HPF (0-FEW) Brief Hospital Course Ms. Guerrero is a 58 old female who has chronic leg edema maintained by cardiology on Bumex 1 g by mouth daily along with potassium supplement 60 twice a day because she is recalcitrant to by mouth Lasix per comes in because of acute on chronic lymphedema. We are diuresing with 40 IV twice a day. Initially 60 IV twice a day but she went hypotensive. Cards has no further conditions. Ultrasound legs negative for DVT. Some mild cellulitis. Okay to discharge. Planned to continue Bumex along with potassium supplements. She is on methadone for chronic pain. She requests some oxycodone pills have only written for 20 pills Consults performed cardiology Procedures performed ultrasound of the legs negative for DVT Medications oxycodone and clindamycin for 7 or 10 days PT recommend SNU but she only wants home health Full code Patient seen and examined, DC time less than 30 minutes Discharge Information Condition at Discharge: Improved, Stable Disposition/Orders: D/C to Home w/ HH Scheduled Allopurinol (Allopurinol) 100 Mg Tablet, 2 TAB PO DAILY for gout, #30 Ref 5 ( Reported) Entered as Reported by: TIANA GALEANO on 10/29/16 5219 Last Action: HELD on 01/04/191958 by QUINCY DOMINGO Allopurinol (Allopurinol) 100 Mg Tablet, 2 TAB PO DAILY, #30 Ref 5 (Reported) Entered as Reported by: LOUIE GARCÍA on 04/12/18 1341 Last Action: Continued on 01/04/191958 by QUINCY DOMINGO Bumetanide (Bumetanide) 1 Mg Tablet, 1 TAB PO DAILY, #90 Ref 1 (Reported) Entered as Reported by: DAYA DAS on 10/12/18 1011 Last Action: HELD on 01/04/191958 by QUINCY DOMINGO Clindamycin Hcl (Clindamycin Hcl) 300 Mg Capsule, 300 MG PO QID for cellulitis for 10 Days, #40 Prescribed by: QUINCY DOMINGO on 01/06/19 1039 Levothyroxine Sodium (Levothyroxine Sodium) 137 Mcg Tablet, 1 TAB PO DAILY, #30 Ref 5 (Reported) Entered as Reported by: LOUIE GARCÍA on 04/12/18 1341 Last Action: Continued on 01/04/191958 by QUINCY DOMINGO Magnesium Oxide (Magnesium) 400 Mg Capsule, 1 CAP PO DAILY, #30 Ref 3 (Reported) Entered as Reported by: LOUIE GARCÍA on 04/12/18 1356 Last Action: Converted on 01/04/191958 by QUINCY DOMINGO Methadone Hcl (Methadone Hcl) 10 Mg Tablet, 140 MG PO DAILY for addiction to pain pills, (Reported) Entered as Reported by: JULIA MOORE on 12/22/16 1018 Last Action: Converted on 01/04/191958 by QUINCY DOMINGO Nystatin (Nystatin) 15 Gm Cream..g., 1 TONY TP TID, #30 Prescribed by: QUINCY DOMINGO on 11/18/17 1447 Last Action: Converted on 01/04/191958 by QUINCY DOMINGO Potassium Chloride (Klor-Con M20) 20 Meq Tab.er.prt, 40 MEQ PO DAILYBFRLUN for replaces potassium, (Reported) Entered as Reported by: JULIA MOORE on 12/22/16 1018 Last Action: Continued on 01/04/191958 by QUINCY DOMINGO Potassium Chloride (Potassium Chloride) 20 Meq Tablet.er, 60 MEQ PO BID, ( Reported) Replace Potassium Entered as Reported by: LOUIE GARCÍA on 04/12/18 1337 Last Action: HELD on 01/04/191958 by QUINCY DOMINGO Potassium Chloride (Potassium Chloride) 20 Meq Tablet.er, 60 MEQ PO DAILY08 for potassium replacement, (Reported) Entered as Reported by: DARÍO PARK on 10/13/18 1106 Last Action: Converted on 01/04/191958 by QUINCY DOMINGO Potassium Chloride (Potassium Chloride) 20 Meq Tablet.er, 60 MEQ PO HS for potassium replacement, (Reported) Entered as Reported by: DARÍO PARK on 10/13/18 110 Last Action: HELD on 01/04/191958 by QUINCY DOMINGO Scheduled PRN Albuterol Sulfate (Ventolin Hfa Inhaler) 18 Gm Hfa.aer.ad, 2 PUFF INH PRN Q4HRS PRN for WHEEZING, Ref 0 (Reported) Entered as Reported by: DEREK LONG RN on 10/08/14 1920 Last Action: Converted on 01/04/191958 by QUINCY DOMINGO Clonazepam (Klonopin) 0.5 Mg Tablet, 1 MG PO PRN QHS PRN for INSOMNIA, (Reported ) Entered as Reported by: JULIA MOORE on 12/22/16 1018 Last Action: Continued on 01/04/191958 by QUINCY DOMINGO Oxycodone Hcl (Oxycodone Hcl) 5 Mg Capsule, 5 MG PO PRN Q6HRS PRN for PAIN, #20 Ref 0 Prescribed by: QUINCY DOMINGO on 01/06/19 1039 QUINCY DOMINGO MD Jan 06, 2019 10:44
--- NOTE | 2019-01-06 11:28 | NUR ---
Discharge instructions and belongings reviewed with patient, verbalized understanding. Patient was escorted out of hospital via wheelchair by this RN. Her daughter picked her up at the main entrance.
--- NOTE | 2019-01-06 13:08 | NUR ---
JANENE following. Pt discharged before JANENE was aware, JANENE faxed lymphedema OT referral to [facility] . RN notified.
== END 2019-01-06 11:30 | disposition home health service (06) | DRG 602 ==
LOC: ER 16:56 → 4 NORTH 19:45
PROVIDERS: ADMIT Internal Medicine; ATTEND Internal Medicine
DX: L03.115 Cellulitis of right lower limb (principal); I50.33 Acute on chronic diastolic (congestive) heart failure; I13.0 Hypertensive heart and chronic kidney disease with heart failure and stage 1 through stage 4 chronic kidney disease, or unspecified chronic kidney disease; Z68.41 Body mass index [BMI] 40.0-44.9, adult; N17.9 Acute kidney failure, unspecified; I89.0 Lymphedema, not elsewhere classified; L03.116 Cellulitis of left lower limb; E66.01 Morbid (severe) obesity due to excess calories; E03.9 Hypothyroidism, unspecified; M19.90 Unspecified osteoarthritis, unspecified site; E11.9 Type 2 diabetes mellitus without complications; F17.210 Nicotine dependence, cigarettes, uncomplicated; F41.9 Anxiety disorder, unspecified; G47.33 Obstructive sleep apnea (adult) (pediatric); G89.29 Other chronic pain; J44.9 Chronic obstructive pulmonary disease, unspecified; N18.9 Chronic kidney disease, unspecified; T50.2X5A Adverse effect of carbonic-anhydrase inhibitors, benzothiadiazides and other diuretics, initial encounter; Z79.891 Long term (current) use of opiate analgesic; Z79.899 Other long term (current) drug therapy; Z82.3 Family history of stroke; Z82.49 Family history of ischemic heart disease and other diseases of the circulatory system; Z83.3 Family history of diabetes mellitus; Z90.49 Acquired absence of other specified parts of digestive tract; Y92.89 Other specified places as the place of occurrence of the external cause
CPT/HCPCS: 36415; 71045; 80048; 80053; 81001; 82550; 83605; 83735; 83880; 84484; 85025; 85610; 85651; 87086; 93005; 93970; 94760; 96365; 96375; J0690; J1650; J1940; J3010; J3490; J7030; 99285-25

== ENCOUNTER → 2019-08-02 | Outpatient (CLI) | payer MEDICARE, MEDICAID ==
[~2019-08-02] MED LIST changes: +CLIN300C8 PO; +OXYC5CAP PO; +ZOLPIDEM 5 MG TABLET. PO ONE
--- NOTE | 2019-08-04 12:23 | SLEEP ---
DATE OF STUDY: 08/02/2019 REFERRING PERSON: Alanis Rich, LUNCHROOM WORKER The patient is 59 years old who weighs 280 pounds with a BMI of 50. The patient's Echola score was 12. The patient underwent a diagnostic sleep study performed at [facility]. Review of the patient's medications also reveals use of clonazepam and methadone. During the night spent 440 minutes in bed and slept for 380 minutes with a sleep efficiency of 86%. Sleep latency was 16 minutes with a REM latency of 81 minutes. Overall, sleep architecture showed normal stage 1 sleep , increase stage II sleep reduce SWS and REM sleep. During the night of study, the patient had 27 obstructive apneas, 296 mixed apneas, no central apneas and 68 hypopneas. The patient's apnea hypopnea index was 62 per hour with a supine index of 62 per hour and a REM index of 6 per hour. EKG monitoring revealed a mean heart rate of 85 beats per minute. It was observed. No clinically significant PLM seen. Nocturnal oximetry study revealed a mean oxygen saturation of 90% with the lowest of 74%. A 70% of time oxygen saturation remained between 80% and 89% and 29% of the time between 70% and 79%. The patient did meet the split night criteria for CPAP initiation. However, all forms of CPAP devices were offered, but the patient remain claustrophobic and had a panic attack due to CPAP was discontinued. IMPRESSION: 1. Severe sleep apnea-hypopnea syndrome at an AHI of 62 per hour. 2. Severe nocturnal hypoxia, likely due to combination of hypoventilation and sleep apnea. 3. No clinically significant periodic limb movements. RECOMMENDATIONS: 1. The patient was noted to have severe sleep apnea and was predominantly mixed apneas. This is likely contributed by chronic use of narcotics and benzodiazepines. Nocturnal hypoxia also suggesting hypoventilation from the use of these medications. The patient failed to tolerate CPAP due to claustrophobia. I would recommend having a pain medication consultation to minimize the usage of narcotics and benzodiazepines. 2. The patient can also be de-sensitized to CPAP .She can be referred to the sleep lab for titration study, if willing to try CPAP.I would recommend reducing the benzodiazepines and narcotics prior to titration. 3. Weight loss is strongly advised. 5. Caution regarding driving until the patient's hypersomnia is resolved with above recommendation. GUIDO ESPINOZA MD DR: IZA/patrice JOB#: [id number] / [id number] ALANIS Servin APRN MTDD
== END | disposition home or self-care (01) ==
LOC: SLPLAB 18:49
PROVIDERS: ATTEND Nurse Practitioner Family
DX: G47.33 Obstructive sleep apnea (adult) (pediatric) (principal); G47.10 Hypersomnia, unspecified; R09.02 Hypoxemia
CPT/HCPCS: 95810

== ENCOUNTER → 2019-09-26 | Outpatient (CLI) | payer MEDICARE, MEDICAID ==
[~2019-09-26] MED LIST changes: -POTA20TA82 PO
--- NOTE | 2019-09-29 13:29 | SLEEP ---
DATE OF STUDY: 09/27/2019 SLEEP STUDY REFERRING PERSON PHYSICIAN: Alanis Rich APRN The patient is 59-year-old who weighs 285 pounds with a BMI of 46. The patient's Columbia score was 12. The patient had a previous sleep study and was found to have severe ALISON at an AHI of 62 per hour. There was severe nocturnal hypoxia as well. The patient was claustrophobic to CPAP and had a panic attack. She was also on narcotics and benzodiazepines. Recommendations were made to return to the sleep lab after desensitization and also to reduce the doses of benzodiazepines and narcotics. During the night study, the patient spent 395 minutes in bed and slept for 360 minutes with a sleep efficiency of 91%. Sleep latency was 8 minutes with a REM latency of 177 minutes. Sleep architecture showed normal stage 1 sleep, increased stage 2 sleep, increased slow wave and reduced REM sleep. EKG monitoring revealed a mean heart rate of 74 beats per minute, no sustained arrhythmias observed. No PLMS were seen. The patient was started on CPAP at a pressure of 5 cm water and titrated up to 17 cm water. At the final pressure, the patient slept for 82 minutes. The patient had supine sleep throughout. The patient had no REM sleep. The patient's AHI was reduced to 1 per hour. The patient's oxygen saturations remained in the low to mid 80s at the final pressure. Suggesting hypoventilation. All respiratory events were eliminated. The patient would benefit from 1 liter of supplemental oxygen. IMPRESSION: 1. Severe sleep apnea diagnosed by previous sleep study. 2. No clinically significant periodic limb movements. 3. Nocturnal hypoxia, which persisted despite elimination of respiratory events. Likely contributed by hypoventilation from the effect of narcotics and benzodiazepines. RECOMMENDATIONS: 1. CPAP at 17 cm of water with 1 liter of supplemental oxygen should be used on a nightly basis. 2. Follow up in 4-6 weeks to assess compliance with CPAP and to document clinical improvement. 3. Weight loss is strongly advised. 4. Avoid SKI TOW OPERATOR depressants. 5. Cautioned regarding driving until symptoms of sleep apnea resolved with the use of CPAP. GUIDO ESPINOZA MD DR: IZA/patrice JOB#: [id number] / [id number] ALANIS Serivn APRN
== END | disposition home or self-care (01) ==
LOC: RT 19:11
PROVIDERS: ATTEND Nurse Practitioner Family
DX: G47.30 Sleep apnea, unspecified (principal); G47.34 Idiopathic sleep related nonobstructive alveolar hypoventilation
CPT/HCPCS: 95811

== ENCOUNTER → 2020-06-21 | Outpatient (CLI) | payer MEDICARE, MEDICAID ==
[~2020-06-21] MED LIST changes: -DICL100G18 TP; +DICL100G54 TP; -ZOLPIDEM 5 MG TABLET. PO ONE
--- NOTE | 2020-06-21 13:32 | RAD ---
MR#: [id number] Date of Study: 06/21/2020 Ordering Physician: ELIZABETH WILLS, Referring Physician: ELIZABETH WILLS, Tech: Cristiano Horn MBA, RDMS, RVT, RDCS, RTR APPROVED REPORT Patient Location : OUT-PATIENT Indications Lower Extremity Edema : Bilateral Greater Saphenous Veins (GSV) Significant venous relux noted in the LEFT GSV at the following levels : Superficial Femoral Junction Lesser Saphenous Veins (LSV) Significant venous reflux is noted in the Right LSV. Findings Grayscale images the bilateral saphenofemoral junctions did not reveal any obvious evidence of thromb us. The right great saphenous vein measures 6 mm and has no evidence of reflux. The left great saphenous vein measures 6.9 mm and has a reflux time of greater than 2.9 seconds at th e level of the saphenofemoral junction. The right lesser saphenous vein measures approximately 4 mm and has a positive reflux of 2 seconds. The left lesser saphenous vein does not show any evidence of reflux. Critical Notification Critical Value: No <Conclusion> 1. Positive for reflux in the LEFT GREATER saphenous vein 2. Positive for reflux in the RIGHT LESSER saphenous vein. 3. Consider repeat imaging with volume loading if there is high clinical suspicion for venous insuff iciency. Signed by : Da Morley, Electronically Approved : 06/21/2020 13:31:41
== END | disposition home or self-care (01) ==
LOC: US 08:24
PROVIDERS: ATTEND Internal Medicine Cardiovascular Disease
DX: R60.0 Localized edema (principal)
CPT/HCPCS: 93970

== ENCOUNTER → 2020-06-21 | Outpatient (CLI) | payer MEDICARE, MEDICAID ==
--- NOTE | 2020-06-21 18:29 | CARD ---
MR#: [id number] Date of Study: 06/21/2020 Ordering Physician: ELIZABETH WILLS, Referring Physician: ELIZABETH WILLS, Tech: Sylvia Muñoz APPROVED REPORT EXAM: Two-dimensional and M-mode echocardiogram with Doppler and color Doppler. Other Information Quality : AverageHR: 81bpm INDICATION Congestive Heart Failure RISK FACTORS Hyperlipidemia Smoking 2D DIMENSIONS Left Atrium(2D)3.5 (1.6-4.0cm)IVSd0.9 (0.7-1.1cm) Aortic Root(2D)2.8 (2.0-3.7cm)LVDd5.4 (3.9-5.9cm) LVOT Diameter2.0 (1.8-2.4cm)PWd0.9 (0.7-1.1cm) LVDs2.9 (2.5-4.0cm)FS (%) 47.1 % SV111.9 mlLVEF(%)78.0 (>50%) Aortic Valve AoV Peak Ino.130.2cm/sAoV VTI29.6cm AO Peak GR.6.8mmHgLVOT Peak Ino.122.1cm/s LVOT VTI 27.63cmAO Mean GR.5mmHg KALEB (VMAX)2.74dp9SRP (VTI)2.82cm2 Mitral Valve MV E Oyixumrz70.2cm/sMV E Peak Gr.105mmHg MV DECEL QRSM440wcBY A Jwixduqq42.5cm/s MV E Mean Gr.3mmHgMV LOS27pw E/A Ratio1.0MVA (PHT)2.39cm2 TDI E/Lateral E'7.6E/Medial E'7.4 Pulmonary Valve PV Peak Vrkgbrdl001.3cm/sPV Peak Grad.5mmHg Tricuspid Valve TR P. Adtjlsnd734mi/sRAP WMEAVMGY1sqOc TR Peak Gr.67fdPzDLUN01upYs Pulmonary Vein S1 Aqsnhebf30.8cm/sD2 Daysswqt47.5cm/s PVa uhpbnezg294futq LEFT VENTRICLE The left ventricle is normal size. There is normal left ventricular wall thickness. The left ventricu lar systolic function is normal and the ejection fraction is within normal range. The Ejection Fracti on is 60-65%. Septal motion consistent with conduction abnormality. Transmitral Doppler flow pattern is Grade II-pseudonormal filling dynamics. RIGHT VENTRICLE The right ventricle is normal size. There is normal right ventricular wall thickness. The right ventr icular systolic function is normal. ATRIA The left atrium is borderline dilated. The right atrium size is normal. The interatrial septum is int act with no evidence for an atrial septal defect or patent foramen ovale as noted on 2-D or Doppler i maging. AORTIC VALVE The aortic valve is thickened but opens well. Doppler and Color Flow revealed no significant aortic r egurgitation. There is no significant aortic valvular stenosis. Calculated aortic valve area is 2.83 cm2 with maximum pressure gradient of 8 mmHg and mean pressure gradient of 5 mmHg. MITRAL VALVE The mitral valve is normal in structure and function. There is no evidence of mitral valve prolapse. There is no mitral valve stenosis. Doppler and Color-flow revealed trace to mild mitral regurgitation . TRICUSPID VALVE The tricuspid valve is normal in structure and function. Doppler and Color Flow revealed trace tricus pid regurgitation with an estimated PAP of 32 mmHg. There is no tricuspid valve stenosis. PULMONIC VALVE The pulmonic valve is not well visualized. Doppler and Color Flow revealed no pulmonic valvular regur gitation. GREAT VESSELS The aortic root is normal in size. The ascending aorta is normal in size. The IVC is normal in size a nd collapses >50% with inspiration. PERICARDIAL EFFUSION There is no evidence of significant pericardial effusion. Critical Notification Critical Value: No <Conclusion> The Left Ventricle is normal size. The left ventricular systolic function is normal and the ejection fraction is within normal range. The Ejection Fraction is 60-65%. Transmitral Doppler flow pattern is Grade II-pseudonormal filling dynamics. Doppler and Color Flow revealed no significant aortic regurgitation. There is no significant aortic valvular stenosis. Doppler and Color-flow revealed trace to mild mitral regurgitation. Doppler and Color Flow revealed trace tricuspid regurgitation with an estimated PAP of 32 mmHg. Signed by : Antonio Chamorro MD Electronically Approved : 06/21/2020 18:28:25
== END | disposition home or self-care (01) ==
LOC: ECHO 09:06
PROVIDERS: ATTEND Internal Medicine Cardiovascular Disease
DX: I34.0 Nonrheumatic mitral (valve) insufficiency (principal); I50.32 Chronic diastolic (congestive) heart failure; Z87.891 Personal history of nicotine dependence
CPT/HCPCS: 93306

== ENCOUNTER 2021-04-03 08:48 | Emergency (ER) | payer MEDICARE, MEDICAID ==
[~2021-04-03] VITALS: Ht 170.2 cm; Wt 113.6 kg
[~2021-04-03 08:48] MED LIST changes: -CLIN300C8 PO; +CLIN300C9 PO
[2021-04-03 08:53] VITALS: BP 140/66
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
--- NOTE | 2021-04-03 09:24 | RAD ---
INDICATION: Reason: short of air / Spl. Instructions: / History: COMPARISON: December 2018 FINDINGS: Single view of chest obtained. Cardiomediastinal silhouette is prominent in size. Multifocal opacities throughout the bilateral lungs, moderate in severity. Degenerative changes spine IMPRESSION: * Multifocal opacities bilaterally which could be from edema or bilateral infiltrate Electronically signed by: Freddie Holder MD (04/03/2021 9:22 AM) [id number]
--- NOTE | 2021-04-03 10:33 | EKG ---
[facility] [address] [place] [address] Test Date: 2021-04-03 Test Time: 09:05:54 Pat Name: JULIA MCBRIDE Department: Room: Gender: F Sales Assistant Displays: : 1960 Requested By: FARZAD CAMARGO Order Number: [id number] Reading MD: Jason Gutiérrez Measurements Intervals [place] Rate: 83 P: 58 PA: 182 QRS: 67 QRSD: 90 T: 49 QT: 408 QTc: 480 Interpretive Statements SINUS RHYTHM PROLONGED QT Electronically Signed On 04-03-2021 11:45:23 CDT by Jason Gutiérrez
[2021-04-03 10:57] LABS: BASO % 1 % (0-3); EOS # 0.1 x10^3/uL (0.0-0.7); EOS % 2 % (0-3); HEMATOCRIT 39.8 % (36.0-47.0); HEMOGLOBIN 13.2 g/dL (12.0-15.5); LYMPH # 0.8 x10^3/uL (1.0-4.8); LYMPH % 13 % (24-48); MEAN CORPUSCULAR HEMOGLOBIN 29 pg (25-35); MEAN CORPUSCULAR HGB CONC 33 g/dL (31-37); MEAN CORPUSCULAR VOLUME 88 fL (79-100); MONO # 1.1 x10^3/uL (0.0-1.1); MONO % 17 % (0-9); NEUT # 4.5 x10^3/uL (1.8-7.7); NEUT % 69 % (31-73); PLATELET COUNT 110 x10^3/uL (140-400); RED BLOOD COUNT 4.53 x10^6/uL (3.50-5.40); RED CELL DISTRIBUTION WIDTH 16.1 % (11.5-14.5); WHITE BLOOD COUNT 6.5 x10^3/uL (4.0-11.0)
[2021-04-03 11:08] LABS: CREATININE 1.7 mg/dL (0.6-1.0); GFR 30.7; POTASSIUM 4.4 mmol/L (3.5-5.1)
[2021-04-03 11:13] LABS: ALBUMIN 2.6 g/dL (3.4-5.0); ALBUMIN/GLOBULIN RATIO 0.6 (1.0-1.7); TOTAL BILIRUBIN 1.4 mg/dL (0.2-1.0); TOTAL PROTEIN 7.1 g/dL (6.4-8.2)
[2021-04-03] MEDS ORDERED: ONDANSETRON PF 4 MG/2 ML VIAL. IV PRN (11:45)
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
[2021-04-03 12:36] LABS: BASE EXCESS COOX 2 mmol/L (-3-3); HCO3 COOX 29 mmol/L (21-28); METHEMOGLOBIN 0.1 % (0.0-1.9); PCO2 COOX 53 mmHg (35-46); PO2 COOX 62 mmHg (65-108); SAT O2 COOX 90 % (92-99)
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
== END 2021-04-03 14:12 | disposition left against medical advice (07) ==
LOC: ER 08:48 → 2 SOUTH 11:35 → UNDOADMIN 11:35 → ER 14:12
DX: I50.9 Heart failure, unspecified (principal); Z20.822 Contact with and (suspected) exposure to COVID-19; N28.9 Disorder of kidney and ureter, unspecified; D69.6 Thrombocytopenia, unspecified; R09.02 Hypoxemia; E11.9 Type 2 diabetes mellitus without complications; E03.9 Hypothyroidism, unspecified; J44.9 Chronic obstructive pulmonary disease, unspecified; G89.29 Other chronic pain; F17.200 Nicotine dependence, unspecified, uncomplicated
CPT/HCPCS: 36415; 36600; 71045; 80053; 82805; 83880; 84484; 85025; 93005; 99285; U0003; U0005